=== PATIENT | male | born 1975 | race Caucasian/White ===

== ENCOUNTER 2022-08-17 08:16 | Inpatient (IN) ==
--- NOTE | 2022-08-17 08:41 | Emergency Department Note ---
HPI General Chief complaint: Recheck/Abnormal Lab/Rx Stated complaint: kidney pain Time Seen by Provider: 08/17/22 08:41 Source: patient Mode of arrival: ambulatory Limitations: no limitations History of Present Illness HPI Narrative: Narrative: Patient is a 47-year-old male with a history of hypertension, alcohol use disorder, and ROSANNE who presents to the emergency department due to feeling off. Patient was seen on Wednesday, and then at that time there was concern for urosepsis. Patient left AMA. Yesterday patient was called because he had positive blood cultures. He states that he continues to have headache, lightheadedness, palpitations that have worsened, abdominal pain on the right, right flank pain, pain with urination, increased frequency of urination, and malaise. He states that he wanted to try to do things on his own, but states that he has not really improved, so decided to come back to the emergency department. He states at this time he is willing to do what we feel like he needs to do. Related Data Home Medications Medication Instructions Recorded Confirmed No Known Home Meds 08/17/22 08/17/22 Allergies Allergy/AdvReac Type Severity Reaction Status Date / Time No Known Allergies Allergy Unknown Unknown Verified 08/15/22 12:26 Review of Systems ROS ROS Narrative: Narrative: Constitutional: Reports fever and weakness Eyes: Denies eye pain or vision change ENT ED: Denies throat pain or rhinorrhea Cardiovascular: Denies chest pain, dyspnea on exertion, orthopnea or edema Respiratory: Denies shortness of breath or cough Gastrointestinal: Reports nausea; Denies abdominal pain, vomiting, diarrhea, constipation, hematochezia or melena Genitourinary: Reports dysuria and frequency Musculoskeletal: Denies back pain or myalgia Integumentary: Denies rash or lesions Neurological: Denies headache, weakness, numbness, confusion, abnormal gait or dizziness PFS Narrative Patient History Narrative: Narrative: Medical/Surgical/Family History All Active Problems ROSANNE (acute kidney injury) (Acute) Acute UTI (urinary tract infection) (Acute) Elevated procalcitonin (Acute) Left against medical advice (Acute) Pyelonephritis (Acute) ROSANNE (acute kidney injury) (Acute) Spondylosis without myelopathy or radiculopathy, lumbar region (Acute) Radiculopathy, lumbosacral region (Acute) Tinea unguium (Acute) Lumbar stenosis (Acute) Lumbar disc herniation (Acute) Acquired foot drop (Acute) Acute pain of right thigh (Acute) Frozen shoulder syndrome (Acute) No pertinent past surgical history (Chronic) Shoulder fracture, left (Chronic ~10/23/18) Foot fracture, right (Chronic) Alcohol use disorder (Chronic) HTN (hypertension) (Chronic) Gout (Chronic) Depression (Chronic) Daytime sleepiness (Chronic) Cigarette smoker (Chronic) Medical History (Updated 08/18/22 @ 12:28 by Steve Hernandez MD) Alcohol use disorder Cigarette smoker Daytime sleepiness Depression Foot fracture, right Gout HTN (hypertension) Lumbar stenosis Radiculopathy, lumbosacral region Shoulder fracture, left (~10/23/18) Surgical History No pertinent past surgical history Family History Mother Arthritis Family/Other Arthritis Social History Smoking Status: Current every day smoker Alcohol Intake Frequency: a few times a month Substance Use: marijuana Exam Narrative Narrative: Narrative: General Limitations: no limitations General appearance: Present alert and in no apparent distress; Absent anxious, appears intoxicated or sleepy Head Head: Present atraumatic and normocephalic Eye Eye: Present EOMI; Absent scleral icterus or nystagmus ENT ENT: Present mucous membranes moist; Absent nasal congestion Neck Neck: Present full ROM and trachea midline Chest Chest: Present normal inspection and symmetric chest wall rise Respiratory Respiratory: Present normal lung sounds bilaterally; Absent respiratory distress or accessory muscle use Cardiovascular Cardiovascular: Present regular rate, normal rhythm and normal heart sounds Adbominal Abdominal: Present soft and normal bowel sounds; Absent distention, tenderness, guarding, rebound or rigidity Extremities Extremities: Present normal inspection and full ROM Back Back: Present normal inspection, full ROM, CVA tenderness (R) and CVA tenderness (L) Neurological Neurological: Present alert and oriented X3 Psychiatric Psychiatric: Present normal affect and normal mood Skin Skin: Present warm (WNL), dry and normal color Course Vital Signs Vital signs: Vital Signs Temperature 97.0 F 08/17/22 08:16 Pulse Rate 117 H 08/17/22 08:16 Respiratory Rate 19 08/17/22 08:16 Blood Pressure 127/87 08/17/22 08:16 Pulse Oximetry (%) 98 08/17/22 08:16 Oxygen Delivery Method Room Air 08/17/22 08:16 Temperature 97.4 F 08/18/22 08:00 Pulse Rate 98 H 08/18/22 08:00 Respiratory Rate 22 08/18/22 08:00 Blood Pressure 116/95 08/18/22 08:00 Pulse Oximetry (%) 100 08/18/22 08:00 Oxygen Delivery Method Room Air 08/18/22 08:00 MDM MDM Narrative Medical decision making narrative: Narrative: Patient is a 47-year-old male who presents to the emergency department due to pyelonephritis and continued symptoms. Patient has known pyelonephritis, and was uroseptic prior to leaving [place]. Patient's blood cultures were positive, so was told to come back in yesterday, but did not come until this morning. He did arrive with tachycardia, so there is continued concern for potential urosepsis. Patient's labs continue to show urinary tract infection, but patient does not meet sepsis criteria at this point. Blood cultures have been taken. He has received antibiotics. His labs do demonstrate an ROSANNE. I have spoken to Dr. Fu about admission given patient's positive blood cultures and ROSANNE. He has agreed to see and evaluate patient for admission. Lab Data 08/18/22 05:10 08/18/22 05:10 Labs: Lab Results 08/17/22 08/17/22 08/17/22 Range/Units 08:25 09:00 09:00 WBC 10.4 (4.5-11.0) K/mcL RBC 3.40 L (4.63-6.08) M/mcL Hgb 11.2 L (13.7-17.5) g/dL Hct 31.4 L (40.1-51.0) % POC Hct (41-55) MCV 92.4 (80.0-100.0) fL MCH 32.9 (26.0-34.0) pg MCHC 35.7 (31.0-36.0) g/dL RDW 13.3 (11.5-14.5) % Plt Count 122 L (140-440) K/mcL MPV 11.4 (8.8-12.5) fL Immature Gran % (Auto) 0.8 H (0.0-0.5) % Neut % (Auto) 87.4 H (38.0-78.0) % Lymph % (Auto) 2.3 L (15.5-49.0) % [place] % (Auto) 8.9 (1.0-12.0) % Eos % (Auto) 0.4 (0.0-7.0) % Baso % (Auto) 0.2 (0.0-2.0) % Lymph # (Auto) 0.24 L (1.50-4.80) K/mcL [place] # (Auto) 0.93 H (0.10-0.90) K/mcL Eos # (Auto) 0.04 (0.00-0.70) K/mcL Baso # (Auto) 0.02 (0.00-0.30) K/mcL Immature Gran # 0.08 H (0.00-0.05) K/mcl Absolute Neutrophils 9.12 H (1.80-8.00) K/mcL POC VBG pH (7.32-7.42) POC VBG pCO2 at Temp (41-51) POC VBG pO2 (25-40) POC VBG HCO3 (24-28) POC VBG Total CO2 (25-29) POC Venous O2 Sat (40-70) POC VBG Base Excess (-2-2) VBG Lactic Acid (0.5-2) POC Sodium (133-145) Sodium (133-145) mmol/L POC Potassium (3.3-5.1) Potassium (3.3-5.1) mmol/L POC Chloride (96-108) Chloride (96-108) mmol/L Carbon Dioxide (22-30) mmol/L POC Total CO2 (22-30) Anion Gap (8.0-16.0) POC Anion Gap (8.0-16.0) POC BUN (6-20) BUN (6-20) mg/dL Creatinine (0.7-1.2) mg/dL POC Creatinine (0.6-1.2) GFR Calculation Glucose (70-105) mg/dL POC Glucose (70-105) Calcium (8.6-10.4) mg/dL POC WB Ioniz Calcium (1.16-1.32) Phosphorus (2.5-4.5) mg/dL Albumin (3.2-5.2) gm/dL Procalcitonin 2.50 H (<0.10) ng/mL Urine Color Yellow Urine Appearance Hazy A (Clear) Urine pH 5.0 (5.0-9.0) Ur Specific [place] 1.010 (1.000-1.035) Urine Protein 100 A (Negative) mg/dL Urine Glucose (UA) Negative (Negative) mg/dL Urine Ketones Negative (Negative) mg/dL Urine Occult Blood 0.20 (Negative) mg/dL Urine Nitrate Negative (Negative) Urine Bilirubin Negative (Negative) mg/dL Urine Urobilinogen Negative mg/dL Ur Leukocyte Esterase 500 A (Negative) /uL Urine RBC 24 H (0-3) /hpf Urine WBC 148 H (0-4) /hpf Ur Squamous Epith Cells < 1 (0-4) /hpf Ur Transition Epith Cell 1 (0-2) /hpf Urine Bacteria None (0) /hpf Hyaline Casts 1 (0-2) /lph Urine Mucus Few A (None) /hpf Ur Culture Indicated? yes 08/17/22 08/17/22 08/17/22 Range/Units 09:04 11:27 13:05 WBC (4.5-11.0) K/mcL RBC (4.63-6.08) M/mcL Hgb (13.7-17.5) g/dL Hct (40.1-51.0) % POC Hct 34.0 L (41-55) MCV (80.0-100.0) fL MCH (26.0-34.0) pg MCHC (31.0-36.0) g/dL RDW (11.5-14.5) % Plt Count (140-440) K/mcL MPV (8.8-12.5) fL Immature Gran % (Auto) (0.0-0.5) % Neut % (Auto) (38.0-78.0) % Lymph % (Auto) (15.5-49.0) % [place] % (Auto) (1.0-12.0) % Eos % (Auto) (0.0-7.0) % Baso % (Auto) (0.0-2.0) % Lymph # (Auto) (1.50-4.80) K/mcL [place] # (Auto) (0.10-0.90) K/mcL Eos # (Auto) (0.00-0.70) K/mcL Baso # (Auto) (0.00-0.30) K/mcL Immature Gran # (0.00-0.05) K/mcl Absolute Neutrophils (1.80-8.00) K/mcL POC VBG pH (7.32-7.42) POC VBG pCO2 at Temp (41-51) POC VBG pO2 (25-40) POC VBG HCO3 (24-28) POC VBG Total CO2 (25-29) POC Venous O2 Sat (40-70) POC VBG Base Excess (-2-2) VBG Lactic Acid (0.5-2) POC Sodium 127 L (133-145) Sodium 129 L (133-145) mmol/L POC Potassium 3.5 (3.3-5.1) Potassium 3.4 (3.3-5.1) mmol/L POC Chloride 95 L (96-108) Chloride 95 L (96-108) mmol/L Carbon Dioxide 22 (22-30) mmol/L POC Total CO2 22.0 (22-30) Anion Gap 12.0 (8.0-16.0) POC Anion Gap 14.0 (8.0-16.0) POC BUN 51 H (6-20) BUN 56 H (6-20) mg/dL Creatinine 2.3 H (0.7-1.2) mg/dL POC Creatinine 2.9 H 2.6 H (0.6-1.2) GFR Calculation 33 Glucose 100 (70-105) mg/dL POC Glucose 105 (70-105) Calcium 8.3 L (8.6-10.4) mg/dL POC WB Ioniz Calcium 1.15 L (1.16-1.32) Phosphorus 3.1 (2.5-4.5) mg/dL Albumin 2.5 L (3.2-5.2) gm/dL Procalcitonin (<0.10) ng/mL Urine Color Urine Appearance (Clear) Urine pH (5.0-9.0) Ur Specific [place] (1.000-1.035) Urine Protein (Negative) mg/dL Urine Glucose (UA) (Negative) mg/dL Urine Ketones (Negative) mg/dL Urine Occult Blood (Negative) mg/dL Urine Nitrate (Negative) Urine Bilirubin (Negative) mg/dL Urine Urobilinogen mg/dL Ur Leukocyte Esterase (Negative) /uL Urine RBC (0-3) /hpf Urine WBC (0-4) /hpf Ur Squamous Epith Cells (0-4) /hpf Ur Transition Epith Cell (0-2) /hpf Urine Bacteria (0) /hpf Hyaline Casts (0-2) /lph Urine Mucus (None) /hpf Ur Culture Indicated? 08/17/22 Range/Units 13:10 WBC (4.5-11.0) K/mcL RBC (4.63-6.08) M/mcL Hgb (13.7-17.5) g/dL Hct (40.1-51.0) % POC Hct (41-55) MCV (80.0-100.0) fL MCH (26.0-34.0) pg MCHC (31.0-36.0) g/dL RDW (11.5-14.5) % Plt Count (140-440) K/mcL MPV (8.8-12.5) fL Immature Gran % (Auto) (0.0-0.5) % Neut % (Auto) (38.0-78.0) % Lymph % (Auto) (15.5-49.0) % [place] % (Auto) (1.0-12.0) % Eos % (Auto) (0.0-7.0) % Baso % (Auto) (0.0-2.0) % Lymph # (Auto) (1.50-4.80) K/mcL [place] # (Auto) (0.10-0.90) K/mcL Eos # (Auto) (0.00-0.70) K/mcL Baso # (Auto) (0.00-0.30) K/mcL Immature Gran # (0.00-0.05) K/mcl Absolute Neutrophils (1.80-8.00) K/mcL POC VBG pH 7.34 (7.32-7.42) POC VBG pCO2 at Temp 45.2 (41-51) POC VBG pO2 16 L (25-40) POC VBG HCO3 24.5 (24-28) POC VBG Total CO2 26.0 (25-29) POC Venous O2 Sat 20.0 L (40-70) POC VBG Base Excess -1.0 (-2-2) VBG Lactic Acid < 0.3 L (0.5-2) POC Sodium (133-145) Sodium (133-145) mmol/L POC Potassium (3.3-5.1) Potassium (3.3-5.1) mmol/L POC Chloride (96-108) Chloride (96-108) mmol/L Carbon Dioxide (22-30) mmol/L POC Total CO2 (22-30) Anion Gap (8.0-16.0) POC Anion Gap (8.0-16.0) POC BUN (6-20) BUN (6-20) mg/dL Creatinine (0.7-1.2) mg/dL POC Creatinine (0.6-1.2) GFR Calculation Glucose (70-105) mg/dL POC Glucose (70-105) Calcium (8.6-10.4) mg/dL POC WB Ioniz Calcium (1.16-1.32) Phosphorus (2.5-4.5) mg/dL Albumin (3.2-5.2) gm/dL Procalcitonin (<0.10) ng/mL Urine Color Urine Appearance (Clear) Urine pH (5.0-9.0) Ur Specific [place] (1.000-1.035) Urine Protein (Negative) mg/dL Urine Glucose (UA) (Negative) mg/dL Urine Ketones (Negative) mg/dL Urine Occult Blood (Negative) mg/dL Urine Nitrate (Negative) Urine Bilirubin (Negative) mg/dL Urine Urobilinogen mg/dL Ur Leukocyte Esterase (Negative) /uL Urine RBC (0-3) /hpf Urine WBC (0-4) /hpf Ur Squamous Epith Cells (0-4) /hpf Ur Transition Epith Cell (0-2) /hpf Urine Bacteria (0) /hpf Hyaline Casts (0-2) /lph Urine Mucus (None) /hpf Ur Culture Indicated? EKG Data EKG #1: EKG attestation: Yes I reviewed and interpreted this EKG. EKG results narrative: Sinus tachycardia with a rate Discharge Plan Patient/Caregiver Discharge Instructions Pt seen by REFUGE MANAGER/PA only: No Clinical Impression: Pyelonephritis, ROSANNE (acute kidney injury) Activity: increase activity as tolerated Patient Disposition: Xfer As Inpt ([facility]) Discharge Date/Time: 08/17/22 14:07
[2022-08-17] MEDS ORDERED: PIPERACILLIN SODIUM/TAZOBACTAM 3.375 GM in DEXTROSE 5% IN WATER 50 ML IV ONE (08:43)
[2022-08-17] MEDS ORDERED: 0.9 % SODIUM CHLORIDE 1,000 ML IV ONE (08:44)
[2022-08-17 09:07] LABS: POC Calcium, Ionized 1.15 (1.16-1.32); POC Creatinine 2.9 (0.6-1.2); POC Potassium 3.5 (3.3-5.1)
[2022-08-17 09:42] LABS: Appearance,Urine HAZY (Clear); Bilirubin,Urine Negative (Negative); Color,Urine YELLOW; Culture Indicated,Urine yes; Glucose,Urine (UA) Negative (Negative); Ketones,Urine Negative (Negative); Leukocyte Esterase,Urine 500 /uL (Negative); Mucus,Urine FEW /hpf; Nitrate,Urine Negative (Negative); Protein,Urine 100 mg/dL (Negative); Urine Hyaline Cast 1 /lph (0-2); Urine RBC 24 /hpf (0-3); Urine Squamous Epithelial Cell < 1 /hpf (0-4); Urine Transitional Epi Cells 1 /hpf (0-2); Urine WBC 148 /hpf (0-4); Urobilinogen,Urine Negative
[2022-08-17 09:56] LABS: Basophils # (Auto) 0.02 K/mcL (0.00-0.30); Basophils % (Auto) 0.2 % (0.0-2.0); Eosinophils # (Auto) 0.04 K/mcL (0.00-0.70); Eosinophils % (Auto) 0.4 % (0.0-7.0); Hematocrit 31.4 % (40.1-51.0); Hemoglobin 11.2 g/dL (13.7-17.5); Lymphocytes # (Auto) 0.24 K/mcL (1.50-4.80); Lymphocytes % (Auto) 2.3 % (15.5-49.0); Mean Cell Volume 92.4 fL (80.0-100.0); Mean Corpuscular HGB Conc 35.7 g/dL (31.0-36.0); Mean Platelet Volume 11.4 fL (8.8-12.5); Monocytes # (Auto) 0.93 K/mcL (0.10-0.90); Monocytes % (Auto) 8.9 % (1.0-12.0); Neutrophils % (Auto) 87.4 % (38.0-78.0); Platelet Count 122 K/mcL (140-440); Red Cell Distribution Width 13.3 % (11.5-14.5); WBC 10.4 K/mcL (4.5-11.0)
[2022-08-17] MEDS ORDERED: LACTATED RINGERS 1,000 ML IV ONE (10:22)
--- NOTE | 2022-08-17 12:44 | Internal Med History&Physical ---
HPI History of Present Illness Patient information: Note initiated : 08/17/22 at 12:37 pm Service Date, if different from initiated Date: [] Patient: Artemio Quintana a 47 y/o M admitted on for kidney pain. Chief Complaint: [] History of present illness: Mr. Quintana is a 47 year old M Presents to the ED with Remaining: for bacteremia. Patient was recently seen the other day for flank pain found to have a pyelonephritis and started on antibiotics but patient left AMA. patient complains of headache fever chills lightheadedness nausea vomiting, right flank pain. Blood cultures are gram- negative bacillus. Work-up in the ED with mild tachycardia. Leukocytosis improving but sodium is down a bit. Creatinine is improved but still quite elevated 2.6. BUN 51. Procalcitonin elevated CT of the abdomen pelvis was with findings distant pyelonephritis bilaterally. Patient has symptoms worse on the right. Review of Systems: Pertinent positives as above. Denies chest pain/cough/dyspnea/diarrhea. Remaining 10 point review of system reviewed negative PHYSICAL EXAM General: Alert, Awake, No acute Distress Eyes/N/T: EOMI, no scleral icterus, PERRL, dry MM Head/Neck: neck supple, full ROM, normocephalic atraumatic CV: RRR, No murmurs, normal s1/s2 Pulm: Clear b/l, no wheezing/rhonchi/rales, no respiratory distress Abd: soft, nontender, but right flank tender with positive domenica's punch, +BS x4 Ext: no clubbing/cyanosis/edema, nontender Neuro: Alert, CN 2-12 grossly intact, no focal deficits, moves all extremities, , sensations intact b/l upper/lower Psychiatric: Skin: warm/dry, normal color PFSH PFSH All Active Problems ROSANNE (acute kidney injury) (Acute) Acute UTI (urinary tract infection) (Acute) Elevated procalcitonin (Acute) Left against medical advice (Acute) Spondylosis without myelopathy or radiculopathy, lumbar region (Acute) Radiculopathy, lumbosacral region (Acute) Tinea unguium (Acute) Lumbar stenosis (Acute) Lumbar disc herniation (Acute) Acquired foot drop (Acute) Acute pain of right thigh (Acute) Frozen shoulder syndrome (Acute) No pertinent past surgical history (Chronic) Shoulder fracture, left (Chronic ~10/23/18) Foot fracture, right (Chronic) Alcohol use disorder (Chronic) HTN (hypertension) (Chronic) Gout (Chronic) Depression (Chronic) Daytime sleepiness (Chronic) Cigarette smoker (Chronic) Medical History Alcohol use disorder Cigarette smoker Daytime sleepiness Depression Foot fracture, right Gout HTN (hypertension) Lumbar stenosis Radiculopathy, lumbosacral region Shoulder fracture, left (~10/23/18) Surgical History No pertinent past surgical history Family History Mother Arthritis Family/Other Arthritis Social History marital status: education level: college smoking status: Current every day smoker tobacco type: cigarettes per day: 1 alcohol intake frequency: a few times a month substance use type: marijuana MEDS/ALLERGIES Home Medications and Allergies Home Medications Medication Instructions Recorded Confirmed Type diclofenac sodium 1 % topical gel 2 g topical .COMPLEX #100 grams 05/20/2007/02 Rx (Voltaren) terbinafine HCl 250 mg tablet 250 mg PO QDAY #30 tabs 06/25/20 07/02/20 Rx gabapentin 600 mg tablet See Rx Instructions .Route 08/26/20 Rx .COMPLEX #90 tabs meloxicam 15 mg tablet See Rx Instructions .Route 09/03/20 Rx .COMPLEX #30 tabs methocarbamol 750 mg tablet See Rx Instructions .Route 09/03/20 Rx .COMPLEX #90 tabs cefuroxime axetil 500 mg tablet 500 mg PO BID 10 days #20 tabs 08/15/22 Rx ondansetron 4 mg disintegrating 4 mg PO Q8H PRN nausea and 08/15/22 Rx tablet vomiting #20 tabs tramadol 50 mg tablet 50 mg PO Q6H PRN pain #20 tabs 08/15/22 Rx Allergies Allergy/AdvReac Type Severity Reaction Status Date / Time No Known Allergies Allergy Unknown Unknown Verified 08/15/22 12:26 EXAM Constitutional Vitals: Temp Pulse Resp BP Pulse Ox O2 Del Method 97.0 F 97 H 19 126/91 99 Room Air 08/17/22 08:16 08/17/22 12:32 08/17/22 08:16 08/17/22 12:31 08/17/22 12:32 08/17/22 08:16 DATA Data Completed and Pending Labs: Labs from last 24 hours 08/17/22 08/17/22 08/17/22 11:27 09:04 09:00 WBC RBC Hgb Hct POC Hct 34.0 L MCV MCH MCHC RDW Plt Count MPV Immature Gran % (Auto) Neut % (Auto) Lymph % (Auto) [place] % (Auto) Eos % (Auto) Baso % (Auto) Lymph # (Auto) [place] # (Auto) Eos # (Auto) Baso # (Auto) Immature Gran # Absolute Neutrophils POC Sodium 127 L POC Potassium 3.5 POC Chloride 95 L POC Total CO2 22.0 POC Anion Gap 14.0 POC BUN 51 H POC Creatinine 2.6 H 2.9 H POC Glucose 105 POC WB Ioniz Calcium 1.15 L Procalcitonin 2.50 H Urine Color Urine Appearance Urine pH Ur Specific [place] Urine Protein Urine Glucose (UA) Urine Ketones Urine Occult Blood Urine Nitrate Urine Bilirubin Urine Urobilinogen Ur Leukocyte Esterase Urine RBC Urine WBC Ur Squamous Epith Cells Ur Transition Epith Cell Urine Bacteria Hyaline Casts Urine Mucus Ur Culture Indicated? 08/17/22 08/17/22 09:00 08:25 WBC 10.4 RBC 3.40 L Hgb 11.2 L Hct 31.4 L POC Hct MCV 92.4 MCH 32.9 MCHC 35.7 RDW 13.3 Plt Count 122 L MPV 11.4 Immature Gran % (Auto) 0.8 H Neut % (Auto) 87.4 H Lymph % (Auto) 2.3 L [place] % (Auto) 8.9 Eos % (Auto) 0.4 Baso % (Auto) 0.2 Lymph # (Auto) 0.24 L [place] # (Auto) 0.93 H Eos # (Auto) 0.04 Baso # (Auto) 0.02 Immature Gran # 0.08 H Absolute Neutrophils 9.12 H POC Sodium POC Potassium POC Chloride POC Total CO2 POC Anion Gap POC BUN POC Creatinine POC Glucose POC WB Ioniz Calcium Procalcitonin Urine Color Yellow Urine Appearance Hazy A Urine pH 5.0 Ur Specific [place] 1.010 Urine Protein 100 A Urine Glucose (UA) Negative Urine Ketones Negative Urine Occult Blood 0.20 Urine Nitrate Negative Urine Bilirubin Negative Urine Urobilinogen Negative Ur Leukocyte Esterase 500 A Urine RBC 24 H Urine WBC 148 H Ur Squamous Epith Cells < 1 Ur Transition Epith Cell 1 Urine Bacteria None Hyaline Casts 1 Urine Mucus Few A Ur Culture Indicated? yes A/P Narrative A/P Narrative: A: *Pyelonephritis(GNB) b/l: -no obstruction on imaging *Bacteremia(GNB): 2/2 above *Sepsis: *ROSANNE: 2/2 above *Volume depletion: *Hyponatremia: *Alcohol use disorder: states 2-4 drinks per day and does Get withdrawal symptoms if he does not get alcohol daily *Tobacco abuse: *Chronic pain and neuropathy: P: -IV cefepime, pending UC/BC -IVF -Monitor renal function/UOP -Monitor trend electrolytes and replace as needed -Follow-up sodium after IV fluid hydration -beer with dinner -ciwa, vitamins/mineral, prn dawit -check lactic acid -f/u pct, chem, cbc -Home medication reconciliation -ppx: Lovenox Time Spent With Patient Time: Total time spent is greater than 50% in coordination of care (as documented) at patient's floor/unit and/or counseling patient: Initial: Total time with patient: 75 - 90 minutes
[2022-08-17 14:06] LABS: Albumin 2.5 gm/dL (3.2-5.2); Blood Urea Nitrogen 56 mg/dL (6-20); Calcium 8.3 mg/dL (8.6-10.4); Carbon Dioxide 22 mmol/L (22-30); Chloride 95 mmol/L (96-108); Glomerular Filtration Rate 33; Glucose 100 mg/dL (70-105); Phosphorous 3.1 mg/dL (2.5-4.5)
[2022-08-17] MEDS ORDERED: POTASSIUM CHLORIDE 20 MEQ TABLET PO PRN (14:10)
[2022-08-17] MEDS ORDERED: PROMETHAZINE 25 MG/ML VIAL IV PRN (14:10)
[2022-08-17] MEDS ORDERED: SENNOSIDES 1 TABLET PO PRN (14:10)
[2022-08-17] MEDS ORDERED: CEFEPIME 2 GM VIAL IV SCH (14:10)
[2022-08-17] MEDS ORDERED: POTASSIUM CHLORIDE 40 MEQ in DEXTROSE 5% IN WATER 500 ML IV PRN (14:10)
[2022-08-17] MEDS ORDERED: IPRATROPIUM/ALBUTEROL 3 ML AMPUL.NEB NEB PRN (14:10)
[2022-08-17] MEDS ORDERED: POLYETHYLENE GLYCOL 3350 17 GM PACKET PO PRN (14:10)
[2022-08-17] MEDS ORDERED: MAGNESIUM SULFATE 2 GM/50 ML BAG IV PRN (14:10)
[2022-08-17] MEDS ORDERED: ACETAMINOPHEN 325 MG TABLET PO PRN (14:10)
[2022-08-17] MEDS: morphine 4 MG/ML VIAL IV PRN (14:25)
[2022-08-17] MEDS: 0.9 % SODIUM CHLORIDE 10 ML SYRINGE IV SCH ×2 (14:25→20:22)
[2022-08-17] MEDS: 0.9 % SODIUM CHLORIDE 1,000 ML IV SCH (14:55)
[2022-08-17] MEDS: THIAMINE 100 MG TABLET PO SCH (14:55)
[2022-08-17] MEDS: CEFEPIME 2 GM VIAL IV SCH ×2 (14:57→23:49)
[2022-08-17] MEDS: LORazepam 2 MG/ML VIAL IV PRN (15:31)
[2022-08-17] MEDS: POTASSIUM CHLORIDE 20 MEQ TABLET PO PRN (17:30)
[2022-08-17] MEDS: chlordiazePOXIDE 25 MG CAPSULE PO PRN ×3 (19:11→19:20)
[2022-08-17] MEDS: DOCUSATE SODIUM 100 MG CAPSULE PO SCH (20:22)
[2022-08-18] MEDS: LORazepam 2 MG/ML VIAL IV PRN ×5 (00:04→20:27)
[2022-08-18] MEDS: 0.9 % SODIUM CHLORIDE 1,000 ML IV SCH (01:24)
[2022-08-18] MEDS: 0.9 % SODIUM CHLORIDE 10 ML SYRINGE IV SCH ×3 (04:01→20:39)
[2022-08-18] MEDS: chlordiazePOXIDE 25 MG CAPSULE PO PRN ×3 (05:11→17:00)
[2022-08-18 06:38] LABS: Basophils # (Auto) 0.02 K/mcL (0.00-0.30); Basophils % (Auto) 0.2 % (0.0-2.0); Eosinophils # (Auto) 0.05 K/mcL (0.00-0.70); Eosinophils % (Auto) 0.5 % (0.0-7.0); Hematocrit 27.6 % (40.1-51.0); Hemoglobin 9.6 g/dL (13.7-17.5); Lymphocytes # (Auto) 0.27 K/mcL (1.50-4.80); Lymphocytes % (Auto) 2.8 % (15.5-49.0); Mean Cell Volume 92.6 fL (80.0-100.0); Mean Corpuscular HGB Conc 34.8 g/dL (31.0-36.0); Mean Platelet Volume 11.6 fL (8.8-12.5); Monocytes # (Auto) 0.95 K/mcL (0.10-0.90); Neutrophils % (Auto) 85.7 % (38.0-78.0); Platelet Count 127 K/mcL (140-440); RBC 2.98 M/mcL (4.63-6.08); Red Cell Distribution Width 13.8 % (11.5-14.5); WBC 9.5 K/mcL (4.5-11.0)
[2022-08-18 07:06] LABS: ALT/SGPT 43 U/L (<40); AST/SGOT 53 U/L (<40); Albumin/Globulin Ratio 0.6 (1.0-2.3); Alkaline Phosphatase 327 U/L (39-117); Bilirubin,Direct 1.4 mg/dL (<0.3); Bilirubin,Total 1.8 mg/dL (0.1-1.0); Blood Urea Nitrogen 53 mg/dL (6-20); Calcium 8.3 mg/dL (8.6-10.4); Carbon Dioxide 19 mmol/L (22-30); Chloride 105 mmol/L (96-108); Globulin 3.1 gm/dL (2.2-3.7); Glomerular Filtration Rate 37; Glucose 98 mg/dL (70-105); Lactate Dehydrogenase 169 U/L (135-225); Phosphorous 2.2 mg/dL (2.5-4.5); Triglycerides 156 mg/dL (<150); Uric Acid 7.5 mg/dL (2.5-8.0)
[2022-08-18] MEDS: MULTIVIT,THER IRON,CA,FA & MIN 1 TABLET PO SCH (08:08)
[2022-08-18] MEDS: DOCUSATE SODIUM 100 MG CAPSULE PO SCH ×2 (08:08→20:39)
[2022-08-18] MEDS: THIAMINE 100 MG TABLET PO SCH (08:08)
[2022-08-18] MEDS: FOLIC ACID 1 MG TABLET PO SCH (08:08)
[2022-08-18] MEDS: ENOXAPARIN 40 MG/0.4 ML SYRINGE SQ SCH (08:08)
--- NOTE | 2022-08-18 08:19 | Internal Med Progress Note ---
SUBJECTIVE Subjective Patient information: Note initiated : 08/18/22 at 8:15 am Service Date, if different from initiated Date: [] Patient: Artemio Quintana a 47 y/o M admitted on 08/17/22 for kidney pain/ ROSANNE & bacterimia. Chief Complaint: [] Interval history: History of present illness: Mr. Quintana is a 47 year old M Presents to the ED with Remaining: for bacteremia. Patient was recently seen the other day for flank pain found to have a pyelonephritis and started on antibiotics but patient left AMA. patient complains of headache fever chills lightheadedness nausea vomiting, right flank pain. Blood cultures are gram- negative bacillus. Work-up in the ED with mild tachycardia. Leukocytosis improving but sodium is down a bit. Creatinine is improved but still quite elevated 2.6. BUN 51. Procalcitonin elevated CT of the abdomen pelvis was with findings distant pyelonephritis bilaterally. Patient has symptoms worse on the right. 08/18 Patient resting in bed. Tired poor sleep. Has continued flank pain but says it is slowly improving. Feels weak and fatigued. Anemia with a hemoglobin 9.6 today likely delusional, no gross bleeding. Sodium level improved. Metabolic acidosis noted. Creatinine minimally improved from yesterday afternoon. Continue IVF. Urine output has not been recorded. bilirubin elevated to have do not have a previous 1 to compare to. Minimal transaminitis. Procalcitonin gradually improving. patient refusing to drink beer offered to him with lunch and dinner even though he says he gets withdrawal when he does not drink alcohol. Review of Systems: Pertinent positives as above. Denies chest pain/cough/dyspnea/diarrhea. PHYSICAL EXAM General: Alert, Awake, No acute Distress Eyes/N/T: EOMI, no scleral icterus, Head/Neck: neck supple, full ROM, CV: RRR, No murmurs, Pulm: Clear b/l, no wheezing/rhonchi/rales, no respiratory distress Abd: soft, right flank tender, +BS x4 Ext: no clubbing/cyanosis/edema, nontender Neuro: Alert, no focal deficits, moves all extremities, , sensations intact b/l upper/lower Psychiatric: Skin: warm/dry, normal color Constitutional Vitals: Vital Signs Temp Pulse Resp BP Pulse Ox O2 Del Method 98.8 F 88 16 132/76 97 Room Air 08/17/22 22:00 08/18/22 03:17 08/18/22 03:17 08/18/22 03:17 08/18/22 03:17 08/18/22 03:17 Period Temp Pulse Resp BP Sys/Barney Pulse Ox O2 Del Method O2 Flow Rate Last 24 Hr 97 F-98.9 F 81-117 12-19 98-140/67-115 94-100 Room Air-Room Air Intake and Output 08/17/22 08/18/22 08/18/22 19:59 03:59 11:59 Intake Total 480 881 Balance 480 881 Weight 65.408 kg Intake & Output: Intake & Output 08/17/22 08/18/22 08/18/22 19:59 03:59 11:59 Intake Total 480 881 Balance 480 881 Weight 65.408 kg Intake: IV 881 Sodium Chloride 0.9% 1,000 ml @ 881 84 mls/hr IV .[id number] [facility] Rx#: [id number] Oral 480 Other: Meal Lunch Percent of Meal Consumed 100% Feeding Ability Independent Urine Appearance Clear Urine Color Yellow # Voids 1 OBJ DATA Labs 08/18/22 05:10 08/18/22 05:10 Labs: Abnormal Lab Results 08/18/22 08/18/22 08/18/22 05:10 05:10 05:10 RBC 2.98 L Hgb 9.6 L Hct 27.6 L POC Hct Plt Count 127 L Immature Gran % (Auto) 0.8 H Neut % (Auto) 85.7 H Lymph % (Auto) 2.8 L Lymph # (Auto) 0.27 L [place] # (Auto) 0.95 H Immature Gran # 0.08 H Absolute Neutrophils 8.13 H POC VBG pO2 POC Venous O2 Sat VBG Lactic Acid POC Sodium Sodium POC Chloride Chloride Carbon Dioxide 19 L POC BUN BUN 53 H Creatinine 2.1 H POC Creatinine Calcium 8.3 L POC WB Ioniz Calcium Phosphorus 2.2 L Total Bilirubin 1.8 H Direct Bilirubin 1.4 H GGT 276 H AST 53 H ALT 43 H Alkaline Phosphatase 327 H Total Protein 5.1 L Albumin 2.0 L Albumin/Globulin Ratio 0.6 L Triglycerides 156 H Procalcitonin 1.46 H Urine Appearance Urine Protein Ur Leukocyte Esterase Urine RBC Urine WBC Urine Mucus 0608/17/22 08/17/22 13:10 13:05 11:27 RBC Hgb Hct POC Hct Plt Count Immature Gran % (Auto) Neut % (Auto) Lymph % (Auto) Lymph # (Auto) [place] # (Auto) Immature Gran # Absolute Neutrophils POC VBG pO2 16 L POC Venous O2 Sat 20.0 L VBG Lactic Acid < 0.3 L POC Sodium Sodium 129 L POC Chloride Chloride 95 L Carbon Dioxide POC BUN BUN 56 H Creatinine 2.3 H POC Creatinine 2.6 H Calcium 8.3 L POC WB Ioniz Calcium Phosphorus Total Bilirubin Direct Bilirubin GGT AST ALT Alkaline Phosphatase Total Protein Albumin 2.5 L Albumin/Globulin Ratio Triglycerides Procalcitonin Urine Appearance Urine Protein Ur Leukocyte Esterase Urine RBC Urine WBC Urine Mucus 08/17/22 08/17/22 08/17/22 09:04 09:00 09:00 RBC 3.40 L Hgb 11.2 L Hct 31.4 L POC Hct 34.0 L Plt Count 122 L Immature Gran % (Auto) 0.8 H Neut % (Auto) 87.4 H Lymph % (Auto) 2.3 L Lymph # (Auto) 0.24 L [place] # (Auto) 0.93 H Immature Gran # 0.08 H Absolute Neutrophils 9.12 H POC VBG pO2 POC Venous O2 Sat VBG Lactic Acid POC Sodium 127 L Sodium POC Chloride 95 L Chloride Carbon Dioxide POC BUN 51 H BUN Creatinine POC Creatinine 2.9 H Calcium POC WB Ioniz Calcium 1.15 L Phosphorus Total Bilirubin Direct Bilirubin GGT AST ALT Alkaline Phosphatase Total Protein Albumin Albumin/Globulin Ratio Triglycerides Procalcitonin 2.50 H Urine Appearance Urine Protein Ur Leukocyte Esterase Urine RBC Urine WBC Urine Mucus 08/17/22 08:25 RBC Hgb Hct POC Hct Plt Count Immature Gran % (Auto) Neut % (Auto) Lymph % (Auto) Lymph # (Auto) [place] # (Auto) Immature Gran # Absolute Neutrophils POC VBG pO2 POC Venous O2 Sat VBG Lactic Acid POC Sodium Sodium POC Chloride Chloride Carbon Dioxide POC BUN BUN Creatinine POC Creatinine Calcium POC WB Ioniz Calcium Phosphorus Total Bilirubin Direct Bilirubin GGT AST ALT Alkaline Phosphatase Total Protein Albumin Albumin/Globulin Ratio Triglycerides Procalcitonin Urine Appearance Hazy A Urine Protein 100 A Ur Leukocyte Esterase 500 A Urine RBC 24 H Urine WBC 148 H Urine Mucus Few A Meds: Medications Acetaminophen (Acetaminophen 325 Mg Tablet) 650 mg PO Q6HP PRN; Protocol PRN Reason: Per Pain Protocol/Fever > 101 Hydrocodone Bitart/Acetaminophen (Hydrocodone/Apap 5/325mg Tablet) 1 tab PO Q4HP PRN PRN Reason: PAIN LEVEL 3-6 Albuterol/Ipratropium (Ipratropium/Albuterol 3 Ml Ampul.Neb) 3 ml NEB Q4HP PRN PRN Reason: Shortness Of Breath Cefepime HCl (Cefepime 2 Gm Vial) 2 gm IV Q12H [facility]; Protocol Last Admin: 08/17/22 23:49 Dose: 2 gm Chlordiazepoxide HCl (Chlordiazepoxide 25 Mg Capsule) 25 mg PO UD PRN; Protocol PRN Reason: Alcohol Withdrawal/Assess CIWA Last Admin: 08/18/22 05:12 Dose: 25 mg Docusate Sodium (Docusate Sodium 100 Mg Capsule) 100 mg PO BID [facility] Last Admin: 08/18/22 08:08 Dose: 100 mg Enoxaparin Sodium (Enoxaparin 40 Mg/0.4 Ml Syringe) 40 mg SQ DAILY [facility] Last Admin: 08/18/22 08:08 Dose: 40 mg Folic Acid (Folic Acid 1 Mg Tablet) 1 mg PO DAILY [facility] Last Admin: 08/18/22 08:08 Dose: 1 mg Potassium Chloride 40 meq/ (Dextrose) 520 mls @ 130 mls/hr IV UD PRN PRN Reason: Potassium < 3 Magnesium Sulfate (Magnesium Sulfate) 2 gm in 50 mls @ 50 mls/hr IV UD PRN PRN Reason: Magnesium </= 1.6 Sodium Chloride (Sodium Chloride 0.9%) 1,000 mls @ 84 mls/hr IV .[id number] [facility] Stop: 08/18/22 13:58 Last Admin: 08/18/22 01:24 Dose: 84 mls/hr Iron Carb/Multivit/[place]/Folic Acid (Multivit,Ther Iron,Ca,Fa & Min 1 Tablet) 1 tab PO DAILY [facility] Last Admin: 08/18/22 08:08 Dose: 1 tab Lorazepam (Lorazepam 2 Mg/Ml Vial) 0 mg IV UD PRN; Protocol PRN Reason: Alcohol Withdrawal/Assess CIWA Last Admin: 08/18/22 00:04 Dose: 1 mg Morphine Sulfate (Morphine 4 Mg/Ml Vial) 0 mg IV Q3HP PRN PRN Reason: Pain Last Admin: 08/17/22 14:25 Dose: 2 mg Ondansetron HCl (Ondansetron 4 Mg/2 Ml Vial) 4 mg IV Q4HP PRN PRN Reason: Nausea And Vomiting Polyethylene Glycol (Polyethylene Glycol 3350 17 Gm Packet) 17 gm PO DAILYP PRN PRN Reason: Constipation Potassium Chloride (Potassium Chloride 20 Meq Tablet) 40 meq PO UD PRN PRN Reason: Potssium is 3-3.5 Last Admin: 08/17/22 17:30 Dose: 40 meq Potassium Chloride (Potassium Chloride 20 Meq Tablet) 40 meq PO UD PRN PRN Reason: Potassium < 3 Promethazine HCl (Promethazine 25 Mg/Ml Vial) 12.5 mg IV Q6HP PRN PRN Reason: Nausea And Vomiting Senna (Sennosides 1 Tablet) 2 tab PO DAILYP PRN PRN Reason: Constipation Sodium Chloride (0.9 % Sodium Chloride 10 Ml Syringe) 10 ml IV Q8 [facility] Last Admin: 08/18/22 04:01 Dose: Not Given Thiamine HCl (Thiamine 100 Mg Tablet) 100 mg PO QDAY [facility] Last Admin: 08/18/22 08:08 Dose: 100 mg A/P Narrative A/P Narrative: A: *Pyelonephritis(E.coli) b/l: -no obstruction on imaging *Bacteremia(E.coli): 2/2 above *Sepsis: pct improving *ROSANNE, suspected ATN: 2/2 above -slowly improving *Met acidosis: *Volume depletion: *Anemia: suspect dilutional, monitor *Hyponatremia: improved *Alcohol use disorder: states 2-4 drinks per day and does Get withdrawal symptoms if he does not get alcohol daily *Transaminitis/Hyperbilirubin: *Tobacco abuse: *Chronic pain and neuropathy: P: -IV cefepime, pending UC/BC, duration abx 10-14 days -IVF -Monitor renal function/UOP -Monitor trend electrolytes and replace as needed -Follow-up sodium after IV fluid hydration -beer with dinner -ciwa, vitamins/mineral, prn dawit -f/u pct, chem, cbc -monitor lft's -ppx: Lovenox Time Spent With Patient Time: Total time spent is greater than 50% in coordination of care (as documented) at patient's floor/unit and/or counseling patient: Subsequent: Total time with patient: 50 - 65 Minutes QUALITY Stroke Symptom Onset Unknown: No VTE Deep Vein Thrombosis/Pulmonary Embolism Present on Admission: No
[2022-08-18] MEDS: CEFEPIME 2 GM VIAL IV SCH ×2 (08:42→20:39)
--- NOTE | 2022-08-18 11:16 | Discharge Summary ---
Discharge Provider Provider IMPORTANT FOLLOW-UP INFORMATION FOR PCP: Patient information: Note initiated : 08/18/22 at 11:15 am Service Date, if different from initiated Date: [] Patient: Artemio Quintana a 47 y/o M admitted on 08/17/22 for kidney pain/ ROSANNE & bacterimia. Chief Complaint: [] Date of admission: 08/17/22 14:07 Primary care physician: Unknown Unknown Consults: 08/17/22 Consult to Physician [CONS] Stat Comment: Consulting Provider: Kaushik Fu Reason For Exam: Physician to Consult COURSE Hospital Course Hospital course: History of present illness: Mr. Quintana is a 47 year old M Presents to the ED with Remaining: for bacteremia. Patient was recently seen the other day for flank pain found to have a pyelonephritis and started on antibiotics but patient left AMA. patient complains of headache fever chills lightheadedness nausea vomiting, right flank pain. Blood cultures are gram- negative bacillus. Work-up in the ED with mild tachycardia. Leukocytosis improving but sodium is down a bit. Creatinine is improved but still quite elevated 2.6. BUN 51. Procalcitonin elevated CT of the abdomen pelvis was with findings distant pyelonephritis bilaterally. Patient has symptoms worse on the right. 08/18 Patient resting in bed. Tired poor sleep. Has continued flank pain but says it is slowly improving. Feels weak and fatigued. Anemia with a hemoglobin 9.6 today likely delusional, no gross bleeding. Sodium level improved. Metabolic acidosis noted. Creatinine minimally improved from yesterday afternoon. Continue IVF. Urine output has not been recorded. bilirubin elevated to have do not have a previous 1 to compare to. Minimal transaminitis. Procalcitonin gradually improving. patient refusing to drink beer offered to him with lunch and dinner even though he says he gets withdrawal when he does not drink alcohol. Patient developing severe alcohol withdrawal with tachycardia tachypnea and febrile hypertension, confusion. delirium tremens CIWA scores been elevating up to 17, IV ativan given and will transfer to icu. examined at bedside, pt restless, tremors, confusion. f/u vitals closely. 08/19 Patient altered and also sedated from withdrawal treatment. Severe withdrawal and DTs. leukocytosis with bandemia now present. repeat ct r/o abscess. d5ns today,. mild transaminitis. >>> CT a/p showing evidence of acute cholecystitis, also as previously mentioned transaminitis developed. Gallbladder ultrasound confirmed. Added IV Flagyl to cefepime. Patient seen by Dr. Munoz who plans for surgery on Wednesday. 08/20 Patient CIWA this morning 15. Patient more coherent although still altered and not at baseline, but able to carry a conversation. Leukocytosis improving. Continue on Rocephin and Flagyl for acute acalculous cholecystitis also finishing treatment for pyelonephritis. Repeat blood cultures negative. Creatinine slightly improved from yesterday, but still elevated. Unknown baseline last creatinine from 2019 was normal. 08/21 Patient requiring less needed benzodiazepines. Mentation better today. Patient sodium mildly elevated 147 today we will start on hypotonic IV solution and follow-up sodium level. Patient undergo cholecystectomy. Patient does admit abdominal pain nausea Laura participate morning conversation with him. Does have some occasional nausea and headache. 08/22 Patient still feels groggy and out of it but seems to be be doing better. Vital signs with mild tachycardia. Did not require IV Ativan last night. Had cholecystectomy yesterday. Leukocytosis today. Manual differential pending. Did have diarrhea yesterday but no stools today. Fecal WBCs negative. Patient does complain of headache and occasional cough. Transaminitis again noted and monitor. A: *Alcohol w/d severe, Delirium Tremens: *Acute acalculous cholecystitis: s/p lap choley (08/21) *Pyelonephritis(E.coli) b/l: -no obstruction on imaging *Bacteremia(E.coli): 2/2 above *Sepsis, severe: *ROSANNE, suspected ATN(unknown baseline) suspect CKD III-?II: *Met acidosis: *Volume depletion: *Anemia: suspect dilutional, monitor *Hyponatremia now hypernatremia: *Alcohol use disorder: *Transaminitis/Hyperbilirubina: 2/2 above *Tobacco abuse: *Chronic pain and neuropathy: *Diarrhea: P: -abx 10-14 days Discharge diagnosis: Pyelonephritis E. coli and bacteremia E. coli sepsis ROSANNE ATN Secondary discharge diagnosis: Avoid acidosis volume depletion anemia hyponatremia alcohol use disorder transaminitis tobacco abuse chronic pain and neuropathy Time Spent with Patient Time attestation: Total time spent providing and/or coordinating discharge services: Time spent: Greater than 30 minutes EXAM Constitutional Vitals: Temp Pulse Resp BP Pulse Ox O2 Del Method 97.4 F 98 H 22 116/95 100 Room Air 08/18/22 08:00 08/18/22 08:00 08/18/22 08:00 08/18/22 08:00 08/18/22 08:00 08/18/22 08:00 Discharge Data Data Completed and Pending Labs on day of discharge: Labs from last 24 hours 08/18/22 08/18/22 08/18/22 05:10 05:10 05:10 WBC 9.5 RBC 2.98 L Hgb 9.6 L Hct 27.6 L MCV 92.6 MCH 32.2 MCHC 34.8 RDW 13.8 Plt Count 127 L MPV 11.6 Immature Gran % (Auto) 0.8 H Neut % (Auto) 85.7 H Lymph % (Auto) 2.8 L Will % (Auto) 10.0 Eos % (Auto) 0.5 Baso % (Auto) 0.2 Lymph # (Auto) 0.27 L [place] # (Auto) 0.95 H Eos # (Auto) 0.05 Baso # (Auto) 0.02 Immature Gran # 0.08 H Absolute Neutrophils 8.13 H POC VBG pH POC VBG pCO2 at Temp POC VBG pO2 POC VBG HCO3 POC VBG Total CO2 POC Venous O2 Sat POC VBG Base Excess VBG Lactic Acid Sodium 134 Potassium 4.4 Chloride 105 Carbon Dioxide 19 L Anion Gap 10.0 BUN 53 H Creatinine 2.1 H POC Creatinine GFR Calculation 37 Glucose 98 Uric Acid 7.5 Calcium 8.3 L Phosphorus 2.2 L Magnesium 2.1 Total Bilirubin 1.8 H Direct Bilirubin 1.4 H GGT 276 H AST 53 H ALT 43 H Alkaline Phosphatase 327 H Lactate Dehydrogenase 169 Total Protein 5.1 L Albumin 2.0 L Globulin 3.1 Albumin/Globulin Ratio 0.6 L Triglycerides 156 H Procalcitonin 1.46 H 08/17/22 08/17/22 08/17/22 13:10 13:05 11:27 WBC RBC Hgb Hct MCV MCH MCHC RDW Plt Count MPV Immature Gran % (Auto) Neut % (Auto) Lymph % (Auto) [place] % (Auto) Eos % (Auto) Baso % (Auto) Lymph # (Auto) Will # (Auto) Eos # (Auto) Baso # (Auto) Immature Gran # Absolute Neutrophils POC VBG pH 7.34 POC VBG pCO2 at Temp 45.2 POC VBG pO2 16 L POC VBG HCO3 24.5 POC VBG Total CO2 26.0 POC Venous O2 Sat 20.0 L POC VBG Base Excess -1.0 VBG Lactic Acid < 0.3 L Sodium 129 L Potassium 3.4 Chloride 95 L Carbon Dioxide 22 Anion Gap 12.0 BUN 56 H Creatinine 2.3 H POC Creatinine 2.6 H GFR Calculation 33 Glucose 100 Uric Acid Calcium 8.3 L Phosphorus 3.1 Magnesium Total Bilirubin Direct Bilirubin GGT AST ALT Alkaline Phosphatase Lactate Dehydrogenase Total Protein Albumin 2.5 L Globulin Albumin/Globulin Ratio Triglycerides Procalcitonin Preliminary micro results at discharge 08/17/22 09:07 Blood Culture - Preliminary Blood 08/17/22 09:00 Blood Culture - Preliminary Blood Discharge Plan Patient/Caregiver Discharge Instructions Activity: increase activity as tolerated Diet: Regular Diet Activity Restrictions/Additional Instructions: Follow-up with PCP in 3 to 7 days. Prescriptions: No Action No Known Home Meds Follow Up Plan Follow up with: Unknown,Unknown [Primary Care Provider] - Patient Disposition: Home, Self-Care Overall status at discharge: patient is progressing back to baseline QUALITY VTE Deep Vein Thrombosis/Pulmonary Embolism Present on Admission: No
--- NOTE | 2022-08-18 14:59 | Event Note ---
Event Note Event Note: Patient developing severe alcohol withdrawal with tachycardia tachypnea and febrile hypertension, confusion. delirium tremens CIWA scores been elevating up to 17, IV ativan given and will transfer to icu. examined at bedside, pt restless, tremors, confusion. f/u vitals closely. Critical care time spent 35 minutes.
[2022-08-18] MEDS ORDERED: HALOPERIDOL LACTATE 5 MG/ML VIAL IM PRN (15:03)
[2022-08-18] MEDS: cloNIDine HCL 0.1 MG TABLET PO PRN (21:03)
[2022-08-18] MEDS: morphine 4 MG/ML VIAL IV PRN (21:03)
[2022-08-19] MEDS: cloNIDine HCL 0.1 MG TABLET PO PRN (00:42)
[2022-08-19] MEDS: chlordiazePOXIDE 25 MG CAPSULE PO PRN (00:42)
[2022-08-19] MEDS: LORazepam 2 MG/ML VIAL IV PRN ×5 (00:42→21:21)
[2022-08-19] MEDS: morphine 4 MG/ML VIAL IV PRN (01:42)
[2022-08-19] MEDS: 0.9 % SODIUM CHLORIDE 10 ML SYRINGE IV SCH ×3 (05:33→21:28)
[2022-08-19 07:21] LABS: Basophils # (Auto) 0.04 K/mcL (0.00-0.30); Basophils % (Auto) 0.3 % (0.0-2.0); Eosinophils # (Auto) 0.11 K/mcL (0.00-0.70); Eosinophils % (Auto) 0.8 % (0.0-7.0); Hematocrit 26.9 % (40.1-51.0); Hemoglobin 9.2 g/dL (13.7-17.5); Lymphocytes # (Auto) 0.59 K/mcL (1.50-4.80); Lymphocytes % (Auto) 4.4 % (15.5-49.0); Mean Cell Volume 94.4 fL (80.0-100.0); Mean Corpuscular HGB Conc 34.2 g/dL (31.0-36.0); Mean Platelet Volume 11.6 fL (8.8-12.5); Monocytes # (Auto) 1.17 K/mcL (0.10-0.90); Monocytes % (Auto) 8.8 % (1.0-12.0); Neutrophils % (Auto) 84.3 % (38.0-78.0); Platelet Count 220 K/mcL (140-440); RBC 2.85 M/mcL (4.63-6.08); Red Cell Distribution Width 14.6 % (11.5-14.5); WBC 13.3 K/mcL (4.5-11.0)
[2022-08-19 07:52] LABS: ALT/SGPT 63 U/L (<40); AST/SGOT 47 U/L (<40); Albumin 2.2 gm/dL (3.2-5.2); Albumin/Globulin Ratio 0.7 (1.0-2.3); Alkaline Phosphatase 302 U/L (39-117); Bilirubin,Total 1.4 mg/dL (0.1-1.0); Blood Urea Nitrogen 46 mg/dL (6-20); Calcium 8.2 mg/dL (8.6-10.4); Carbon Dioxide 19 mmol/L (22-30); Chloride 108 mmol/L (96-108); Globulin 3.1 gm/dL (2.2-3.7); Glomerular Filtration Rate 41; Glucose 101 mg/dL (70-105); Lactate Dehydrogenase 145 U/L (135-225); Phosphorous 2.6 mg/dL (2.5-4.5); Triglycerides 135 mg/dL (<150); Uric Acid 7.1 mg/dL (2.5-8.0)
--- NOTE | 2022-08-19 08:12 | Internal Med Progress Note ---
SUBJECTIVE Subjective Patient information: Note initiated : 08/19/22 at 8:06 am Service Date, if different from initiated Date: [] Patient: Artemio Quintana a 47 y/o M admitted on 08/17/22 for kidney pain/ ROSANNE & bacterimia. Chief Complaint: [] Interval history: History of present illness: Mr. Quintana is a 47 year old M Presents to the ED with Remaining: for bacteremia. Patient was recently seen the other day for flank pain found to have a pyelonephritis and started on antibiotics but patient left AMA. patient complains of headache fever chills lightheadedness nausea vomiting, right flank pain. Blood cultures are gram- negative bacillus. Work-up in the ED with mild tachycardia. Leukocytosis improving but sodium is down a bit. Creatinine is improved but still quite elevated 2.6. BUN 51. Procalcitonin elevated CT of the abdomen pelvis was with findings distant pyelonephritis bilaterally. Patient has symptoms worse on the right. 08/18 Patient resting in bed. Tired poor sleep. Has continued flank pain but says it is slowly improving. Feels weak and fatigued. Anemia with a hemoglobin 9.6 today likely delusional, no gross bleeding. Sodium level improved. Metabolic acidosis noted. Creatinine minimally improved from yesterday afternoon. Continue IVF. Urine output has not been recorded. bilirubin elevated to have do not have a previous 1 to compare to. Minimal transaminitis. Procalcitonin gradually improving. patient refusing to drink beer offered to him with lunch and dinner even though he says he gets withdrawal when he does not drink alcohol. Patient developing severe alcohol withdrawal with tachycardia tachypnea and febrile hypertension, confusion. delirium tremens CIWA scores been elevating up to 17, IV ativan given and will transfer to icu. examined at bedside, pt restless, tremors, confusion. f/u vitals closely. 08/19 Patient altered and also sedated from withdrawal treatment. Severe withdrawal and DTs. leukocytosis with bandemia now present. repeat ct r/o abscess. d5ns today,. mild transaminitis. >>> CT a/p showing evidence of acute cholecystitis, also as previously mentioned transaminitis developed. Gallbladder ultrasound confirmed. Added IV Flagyl to cefepime. Patient seen by Dr. Munoz who plans for surgery on Wednesday. Review of Systems: Pertinent positives as above. Denies chest pain/cough/dyspnea/diarrhea. PHYSICAL EXAM General: sleeping, No acute Distress Eyes/N/T: , no scleral icterus, Head/Neck: neck supple, full ROM, CV: Tacky but regular, No murmurs, Pulm: Clear b/l, no wheezing/rhonchi/rales, no respiratory distress Abd: soft, right flank tender, +BS x4 Ext: no clubbing/cyanosis/edema, nontender Neuro: sedated, no focal deficits, spontaneously moves all extremities, Psychiatric: Skin: warm/dry, normal color Constitutional Vitals: Vital Signs Temp Pulse Resp BP Pulse Ox O2 Del Method 98.8 F 105 H 25 H 95/58 99 Room Air 08/19/22 07:01 08/19/22 07:37 08/19/22 07:37 08/19/22 07:01 08/19/22 07:37 08/19/22 07:37 Period Temp Pulse Resp BP Sys/Barney Pulse Ox O2 Del Method O2 Flow Rate Last 24 Hr 98.8 F-101.5 F 94-109 20-31 95-149/58-97 92-100 Room Air-Room Air Intake and Output 08/18/22 08/19/22 08/19/22 19:59 03:59 11:59 Intake Total 1658 160 Output Total 600 800 Balance 1058 -800 160 Weight 65.408 kg 63.616 kg Intake & Output: Intake & Output 08/18/22 08/19/22 08/19/22 19:59 03:59 11:59 Intake Total 1658 160 Output Total 600 800 Balance 1058 -800 160 Weight 65.408 kg 63.616 kg Intake: IV 1000 Sodium Chloride 0.9% 1,000 ml @ 1000 84 mls/hr IV .[id number] COUNT INCLUDES THE [facility] Rx#: [id number] Oral 658 160 Output: Void Amount 600 800 Other: Meal Lunch Percent of Meal Consumed 25% Urine Appearance Clear Urine Color Dark Felicita Urine Odor Strong Stool Size Moderate Large Stool Color Brown Brown Stool Consistency Loose Liquid Loose # Voids 2 # Bowel Movements 2 # of times incontinent of 1 Bowels OBJ DATA Labs 08/19/22 06:02 08/19/22 06:01 Labs: Abnormal Lab Results 08/19/22 08/19/22 08/18/22 06:02 06:01 05:10 WBC 13.3 H RBC 2.85 L Hgb 9.2 L Hct 26.9 L POC Hct RDW 14.6 H Plt Count Immature Gran % (Auto) 1.4 H Neut % (Auto) 84.3 H Lymph % (Auto) 4.4 L Lymph # (Auto) 0.59 L Sebastian # (Auto) 1.17 H Immature Gran # 0.18 H Absolute Neutrophils 11.19 H POC VBG pO2 POC Venous O2 Sat VBG Lactic Acid POC Sodium Sodium POC Chloride Chloride Carbon Dioxide 19 L POC BUN BUN 46 H Creatinine 1.9 H POC Creatinine Calcium 8.2 L POC WB Ioniz Calcium Phosphorus Total Bilirubin 1.4 H Direct Bilirubin 1.0 H GGT 262 H AST 47 H ALT 63 H Alkaline Phosphatase 302 H Total Protein 5.3 L Albumin 2.2 L Albumin/Globulin Ratio 0.7 L Triglycerides Procalcitonin 1.46 H Urine Appearance Urine Protein Ur Leukocyte Esterase Urine RBC Urine WBC Urine Mucus 08/18/22 08/18/22 08/17/22 05:10 05:10 13:10 WBC RBC 2.98 L Hgb 9.6 L Hct 27.6 L POC Hct RDW Plt Count 127 L Immature Gran % (Auto) 0.8 H Neut % (Auto) 85.7 H Lymph % (Auto) 2.8 L Lymph # (Auto) 0.27 L Sebastian # (Auto) 0.95 H Immature Gran # 0.08 H Absolute Neutrophils 8.13 H POC VBG pO2 16 L POC Venous O2 Sat 20.0 L VBG Lactic Acid < 0.3 L POC Sodium Sodium POC Chloride Chloride Carbon Dioxide 19 L POC BUN BUN 53 H Creatinine 2.1 H POC Creatinine Calcium 8.3 L POC WB Ioniz Calcium Phosphorus 2.2 L Total Bilirubin 1.8 H Direct Bilirubin 1.4 H GGT 276 H AST 53 H ALT 43 H Alkaline Phosphatase 327 H Total Protein 5.1 L Albumin 2.0 L Albumin/Globulin Ratio 0.6 L Triglycerides 156 H Procalcitonin Urine Appearance Urine Protein Ur Leukocyte Esterase Urine RBC Urine WBC Urine Mucus 08/17/22 08/17/22 08/17/22 13:05 11:27 09:04 WBC RBC Hgb Hct POC Hct 34.0 L RDW Plt Count Immature Gran % (Auto) Neut % (Auto) Lymph % (Auto) Lymph # (Auto) Sebastian # (Auto) Immature Gran # Absolute Neutrophils POC VBG pO2 POC Venous O2 Sat VBG Lactic Acid POC Sodium 127 L Sodium 129 L POC Chloride 95 L Chloride 95 L Carbon Dioxide POC BUN 51 H BUN 56 H Creatinine 2.3 H POC Creatinine 2.6 H 2.9 H Calcium 8.3 L POC WB Ioniz Calcium 1.15 L Phosphorus Total Bilirubin Direct Bilirubin GGT AST ALT Alkaline Phosphatase Total Protein Albumin 2.5 L Albumin/Globulin Ratio Triglycerides Procalcitonin Urine Appearance Urine Protein Ur Leukocyte Esterase Urine RBC Urine WBC Urine Mucus 08/17/22 08/17/22 08/17/22 09:00 09:00 08:25 WBC RBC 3.40 L Hgb 11.2 L Hct 31.4 L POC Hct RDW Plt Count 122 L Immature Gran % (Auto) 0.8 H Neut % (Auto) 87.4 H Lymph % (Auto) 2.3 L Lymph # (Auto) 0.24 L Sebastian # (Auto) 0.93 H Immature Gran # 0.08 H Absolute Neutrophils 9.12 H POC VBG pO2 POC Venous O2 Sat VBG Lactic Acid POC Sodium Sodium POC Chloride Chloride Carbon Dioxide POC BUN BUN Creatinine POC Creatinine Calcium POC WB Ioniz Calcium Phosphorus Total Bilirubin Direct Bilirubin GGT AST ALT Alkaline Phosphatase Total Protein Albumin Albumin/Globulin Ratio Triglycerides Procalcitonin 2.50 H Urine Appearance Hazy A Urine Protein 100 A Ur Leukocyte Esterase 500 A Urine RBC 24 H Urine WBC 148 H Urine Mucus Few A Meds: Medications Acetaminophen (Acetaminophen 325 Mg Tablet) 650 mg PO Q6HP PRN; Protocol PRN Reason: Per Pain Protocol/Fever > 101 Hydrocodone Bitart/Acetaminophen (Hydrocodone/Apap 5/325mg Tablet) 1 tab PO Q4HP PRN PRN Reason: PAIN LEVEL 3-6 Albuterol/Ipratropium (Ipratropium/Albuterol 3 Ml Ampul.Neb) 3 ml NEB Q4HP PRN PRN Reason: Shortness Of Breath Cefepime HCl (Cefepime 2 Gm Vial) 2 gm IV Q12H JERSON; Protocol Last Admin: 08/18/22 20:39 Dose: 2 gm Chlordiazepoxide HCl (Chlordiazepoxide 25 Mg Capsule) 50 mg PO UD PRN; Protocol PRN Reason: Alcohol Withdrawal/Assess CIWA Last Admin: 08/19/22 00:42 Dose: 50 mg Clonidine HCl (Clonidine Hcl 0.1 Mg Tablet) 0.1 mg PO Q4HP PRN PRN Reason: ALC Last Admin: 08/19/22 00:42 Dose: 0.1 mg Docusate Sodium (Docusate Sodium 100 Mg Capsule) 100 mg PO BID COUNT INCLUDES THE [facility] Last Admin: 08/18/22 20:39 Dose: Not Given Enoxaparin Sodium (Enoxaparin 40 Mg/0.4 Ml Syringe) 40 mg SQ DAILY COUNT INCLUDES THE [facility] Last Admin: 08/18/22 08:08 Dose: 40 mg Folic Acid (Folic Acid 1 Mg Tablet) 1 mg PO DAILY COUNT INCLUDES THE [facility] Last Admin: 08/18/22 08:08 Dose: 1 mg Haloperidol Lactate (Haloperidol Lactate 5 Mg/Ml Vial) 0.5 mg IM Q2HP PRN PRN Reason: Alcohol Withdrawal/Assess CIWA Potassium Chloride 40 meq/ (Dextrose) 520 mls @ 130 mls/hr IV UD PRN PRN Reason: Potassium < 3 Magnesium Sulfate (Magnesium Sulfate) 2 gm in 50 mls @ 50 mls/hr IV UD PRN PRN Reason: Magnesium </= 1.6 Iron Carb/Multivit/Wound Nurse/Folic Acid (Multivit,Ther Iron,Ca,Fa & Min 1 Tablet) 1 tab PO DAILY COUNT INCLUDES THE [facility] Last Admin: 08/18/22 08:08 Dose: 1 tab Lorazepam (Lorazepam 2 Mg/Ml Vial) 0 mg IV UD PRN; Protocol PRN Reason: Alcohol Withdrawal/Assess CIWA Last Admin: 08/19/22 07:49 Dose: 2 mg Morphine Sulfate (Morphine 4 Mg/Ml Vial) 0 mg IV Q3HP PRN PRN Reason: Pain Last Admin: 08/19/22 01:42 Dose: 2 mg Ondansetron HCl (Ondansetron 4 Mg/2 Ml Vial) 4 mg IV Q4HP PRN PRN Reason: Nausea And Vomiting Polyethylene Glycol (Polyethylene Glycol 3350 17 Gm Packet) 17 gm PO DAILYP PRN PRN Reason: Constipation Potassium Chloride (Potassium Chloride 20 Meq Tablet) 40 meq PO UD PRN PRN Reason: Potssium is 3-3.5 Last Admin: 08/17/22 17:30 Dose: 40 meq Potassium Chloride (Potassium Chloride 20 Meq Tablet) 40 meq PO UD PRN PRN Reason: Potassium < 3 Promethazine HCl (Promethazine 25 Mg/Ml Vial) 12.5 mg IV Q6HP PRN PRN Reason: Nausea And Vomiting Senna (Sennosides 1 Tablet) 2 tab PO DAILYP PRN PRN Reason: Constipation Sodium Chloride (0.9 % Sodium Chloride 10 Ml Syringe) 10 ml IV Q8 COUNT INCLUDES THE [facility] Last Admin: 08/19/22 05:33 Dose: 10 ml Thiamine HCl (Thiamine 100 Mg Tablet) 100 mg PO QDAY COUNT INCLUDES THE [facility] Last Admin: 08/18/22 08:08 Dose: 100 mg A/P Narrative A/P Narrative: A: *Alcohol w/d severe, Delirium Tremens: - *Acute acalculous cholecystitis: *Pyelonephritis(E.coli) b/l: -no obstruction on imaging *Bacteremia(E.coli): 2/2 above *Sepsis: pct improving *ROSANNE, suspected ATN: 2/2 above -slowly improving *Met acidosis: *Volume depletion: *Anemia: suspect dilutional, monitor *Hyponatremia: improved *Alcohol use disorder: states 2-?4 drinks per day and does Get withdrawal symptoms if he does not get alcohol daily *Transaminitis/Hyperbilirubina: *Tobacco abuse: *Chronic pain and neuropathy: P: -ciwa, vitamins/mineral, prn dawit -monitor vitals and rhythm closely -d5ns -man diff for increased wbc > bandemia, repeat ct r/o abscess -Dr. Munoz following, plan is for cholecystectomy on Wednesday -cefepime/flagyl, pending UC/BC, duration abx 10-14 days -Monitor renal function/UOP -Monitor trend electrolytes and replace as needed - -f/u pct, chem, cbc -monitor lft's -smoking cessation counseling >3 minutes -pt/ot -ppx: Lovenox Time Spent With Patient Time: Total time spent is greater than 50% in coordination of care (as documented) at patient's floor/unit and/or counseling patient: Critical Care Time: Yes Total Critical Care Time: 65 QUALITY Stroke Symptom Onset Unknown: No VTE Deep Vein Thrombosis/Pulmonary Embolism Present on Admission: No
[2022-08-19] MEDS ORDERED: DEXTROSE 5%-NS 1,000 ML IV SCH (08:15)
[2022-08-19] MEDS: THIAMINE 100 MG in 0.9 % SODIUM CHLORIDE 50 ML IV SCH (08:54)
[2022-08-19] MEDS: DOCUSATE SODIUM 100 MG CAPSULE PO SCH ×2 (08:54→20:32)
[2022-08-19] MEDS: CEFEPIME 2 GM VIAL IV SCH ×3 (09:04→21:27)
[2022-08-19] MEDS: ENOXAPARIN 40 MG/0.4 ML SYRINGE SQ SCH (09:05)
[2022-08-19 09:13] LABS: Anisocytosis 1+ (None Seen); Band Neutrophils % 17 % (0-10); Eosinophils % (Manual) 1 % (0-7); Hypochromasia 1+ (None Seen); Lymphocytes % 3 % (15-49); Monocytes % (Manual) 9 % (1-12); Myelocytes % 1 %; Platelet Estimate NORMAL (Normal); Poikilocytosis FEW (None Seen); Polychromasia 1+ (None Seen); RBC Fragments RARE (None Seen); RBC Morphology ABNORMAL (Normal); Segmented Neutrophils % 69 % (38-78)
[2022-08-19] MEDS: FOLIC ACID 1 MG TABLET PO SCH (10:10)
[2022-08-19] MEDS: MULTIVIT,THER IRON,CA,FA & MIN 1 TABLET PO SCH (10:10)
[2022-08-19] MEDS: DEXTROSE 5%-NS 1,000 ML IV SCH ×3 (10:15→22:52)
--- NOTE | 2022-08-19 12:20 | Cat Scan Report ---
CLINICAL INFORMATION: Pyelonephritis. Evaluate for abscess COMPARISON: Abdomen and pelvic CT 08/15/2022 TECHNIQUE: 0.625 mm helical slices were obtained from the mid heart through the subtrochanteric regions. Following reconstruction, 2.5 mm sagittal, coronal and axial reformatted images were processed and reviewed at bone and soft tissue windows.The exam was performed using radiation dose optimization techniques including, but not limited to, automated exposure control, adjustment of the mA and/or kV according to patient size and use of iterative reconstruction technique. FINDINGS: The lung bases show subsegmental atelectasis in the posterior inferior lower lobes-new from previous exam. No effusions. The visualized heart is grossly normal. Abdominal images show mild enlargement of the gallbladder with mild wall thickening and marked pericholecystic fluid. The findings are compatible with acute cholecystitis-new prior exam. The intrahepatic and common bile ducts are normal caliber CBD is 5 mm. The liver, both adrenal glands, spleen, pancreas and aorta are normal in size, configuration and attenuation without focal lesion. There is no free air, free fluid or adenopathy. Both kidneys are mildly enlarged: The right is 12.9 cm in length and the left is 11.8 cm in length. Renal attenuation slightly inhomogeneous with equivocal perinephric stranding. Findings are suggestive, but not diagnostic, of bilateral nephritis. No evidence of abscess. Pelvic images show normal noncontrasted urinary bladder, prostate and seminal vesicles. The stomach, small bowel, medial pericecal appendix and large bowel are grossly normal. Bone windows show no osseous abnormality. IMPRESSION: 1. Acute cholecystitis. 2. Equivocal enlargement of the kidneys with inhomogeneous attenuation. This is only suggestive, but not diagnostic of bilateral nephritis. No evidence of abscess. If urinalysis is normal, this finding is likely insignificant Interpreted and Authenticated by: Johnny Johansen 08/19/22
[2022-08-19] MEDS: metroNIDAZOLE 500 MG/100 ML BAG IV SCH ×2 (12:38→21:28)
--- NOTE | 2022-08-19 15:59 | Ultrasound Report ---
CLINICAL INFORMATION: eval cholecystitis, per surgeon COMPARISON: None. FINDINGS: The gallbladder wall is massively thickened-9 mm no stones are identified. There is however a large amount of sludge is present within the gallbladder. Moderate pericholecystic fluid noted. Common bile is normal at 4 mm. IMPRESSION: Severe acute acalculus cholecystitis Interpreted and Authenticated by: Johnny Johansen 08/19/22
--- NOTE | 2022-08-19 16:36 | General Surgery Consult Note ---
HPI Date of Consult Consult Date: 08/19/22 Requesting physician: Kaushik Fu Primary Care Provider: Unknown Unknown Consult Narrative Patient Information: Note initiated : 08/19/22 at 4:34 pm Service Date, if different from initiated Date: [] Patient: Artemio Quintana 47 y/o M admitted on 08/17/22 for kidney pain/ ROSANNE & bacterimia. Chief Complaint: [] Chief complaint: Abdominal and right flank pain with E. coli bacteremia; abnormal abdominal Reason for consult: Acute cholecystitis with biliary sludge cc:: CC: Kaushik Fu 47-year-old male who was admitted initially on 17 August 2022 with complaint of lethargy fever chills with leukocytosis and flank and right upper quadrant pain. Patient had been seen in the emergency room on and 16 August with similar complaints. Initially it was felt that he had UTI with E. coli bacteremia. He was advised to be admitted to the hospital but refused. He returned on 17 August with worsening symptoms and has been treated for pyelonephritis and bacteremia. He has a history of alcohol excess use and has developed alcohol withdrawal. He refused to take alcohol and has been placed on the CIWA protocol. He appears to be improving significantly at this time. He still has epigastric right upper quadrant and right flank tenderness. He has some elevation of his liver enzymes but his bilirubin is only 1.4. Because of increasing abdominal pain a CT was done which suggest that acute severe inflammation of the gallbladder. No stones were noted on CT so an ultrasound was ordered. The ultrasound shows severe inflammation with thickening of the gallbladder wall with a large volume of sludge and pericholecystic fluid. Patient is not fully oriented so he cannot be consented at this time. He will need to have cholecystectomy during this admission and I will make plans to perform it on Wednesday. Hopefully he will be more oriented and I can get adequate consent. Review of Systems ROS unobtainable: due to mental status Constitutional Constitutional: Present fever(s), lethargy and malaise PFSH PFSH All Active Problems Alcohol withdrawal syndrome, with delirium (Acute) History of alcohol abuse (Acute) Acute cholecystitis (Acute) Bacteremia due to Gram-negative bacteria (Acute) ROSANNE (acute kidney injury) (Acute) Acute UTI (urinary tract infection) (Acute) Elevated procalcitonin (Acute) Left against medical advice (Acute) Pyelonephritis (Acute) ROSANNE (acute kidney injury) (Acute) Spondylosis without myelopathy or radiculopathy, lumbar region (Acute) Radiculopathy, lumbosacral region (Acute) Tinea unguium (Acute) Lumbar stenosis (Acute) Lumbar disc herniation (Acute) Acquired foot drop (Acute) Acute pain of right thigh (Acute) Frozen shoulder syndrome (Acute) No pertinent past surgical history (Chronic) Shoulder fracture, left (Chronic ~10/23/18) Foot fracture, right (Chronic) Alcohol use disorder (Chronic) HTN (hypertension) (Chronic) Gout (Chronic) Depression (Chronic) Daytime sleepiness (Chronic) Cigarette smoker (Chronic) Medical History (Updated 08/19/22 @ 16:48 by Alia Munoz MD) Alcohol use disorder Cigarette smoker Daytime sleepiness Depression Foot fracture, right Gout HTN (hypertension) Lumbar stenosis Radiculopathy, lumbosacral region Shoulder fracture, left (~10/23/18) Surgical History No pertinent past surgical history Family History Mother Arthritis Family/Other Arthritis Social History marital status: education level: college smoking status: Current every day smoker tobacco type: cigarettes per day: 1 alcohol intake frequency: a few times a month substance use type: marijuana MEDS/ALLERGIES Home Medications and Allergies Home Medications Medication Instructions Recorded Confirmed Type No Known Home Meds 08/17/22 08/17/22 History Allergies Allergy/AdvReac Type Severity Reaction Status Date / Time No Known Allergies Allergy Unknown Unknown Verified 08/15/22 12:26 Physical Examination Vital Signs Vital signs: Temp Pulse Resp BP Pulse Ox O2 Del Method 98.6 F 87 26 H 126/81 98 Room Air 08/19/22 16:00 08/19/22 14:00 08/19/22 16:00 08/19/22 16:00 08/19/22 16:00 08/19/22 16:00 General physical appearance General physical exam: moderate distress, moderate pain, cachectic and chronically ill Eyes Eye exam: PERRL and normal ocular movement; negative icteric ENT ENT exam: negative no congestion Head Head exam IM: Present atraumatic, normal inspection and normocephalic Neck Neck exam: no masses, no bruits, trachea midline, no lymphadenopathy and no venous distension Cardiovascular Cardiovascular exam IM: Present normal rate and rhythm, RRR, +S1 and +S2; Absent JVD Respiratory Respiratory exam: normal expansion, normal respiratory effort and clear to auscultation Abdomen Abdomen: Present tender (Epigastric, right upper quadrant, right flank tenderness), guarding and rebound Integumentary Integumentary: Present no rash, no growths and no abnormal pigmentation Neurologic Neurologic: Present disoriented and confused Musculoskeletal Musculoskeletal: Present other (Gait and stance cannot be tested due to mental status changes) Psychiatric Psychiatric: Absent oriented to time, oriented to person, oriented to place, speech is normal or memory intact Results Labs 08/19/22 06:02 08/19/22 06:01 Labs: Abnormal lab results 08/19/22 08/19/22 08/19/22 Range/Units 06:01 06:01 06:02 WBC 13.3 H (4.5-11.0) K/mcL RBC 2.85 L (4.63-6.08) M/mcL Hgb 9.2 L (13.7-17.5) g/dL Hct 26.9 L (40.1-51.0) % RDW 14.6 H (11.5-14.5) % Immature Gran % (Auto) 1.4 H (0.0-0.5) % Neut % (Auto) 84.3 H (38.0-78.0) % Lymph % (Auto) 4.4 L (15.5-49.0) % Lymph # (Auto) 0.59 L (1.50-4.80) K/mcL Elliott # (Auto) 1.17 H (0.10-0.90) K/mcL Band Neutrophils % 17 H (0-10) % Lymphocytes % 3 L (15-49) % Immature Gran # 0.18 H (0.00-0.05) K/mcl Absolute Neutrophils 11.19 H (1.80-8.00) K/mcL RBC Morphology Abnormal A (Normal) Polychromasia 1+ A (None Seen) Hypochromasia 1+ A (None Seen) Poikilocytosis Few A (None Seen) Anisocytosis 1+ A (None Seen) RBC Fragments Rare A (None Seen) Carbon Dioxide 19 L (22-30) mmol/L BUN 46 H (6-20) mg/dL Creatinine 1.9 H (0.7-1.2) mg/dL Calcium 8.2 L (8.6-10.4) mg/dL Total Bilirubin 1.4 H (0.1-1.0) mg/dL Direct Bilirubin 1.0 H (<0.3) mg/dL GGT 262 H (8-61) U/L AST 47 H (<40) U/L ALT 63 H (<40) U/L Alkaline Phosphatase 302 H (39-117) U/L Total Protein 5.3 L (5.9-8.4) gm/dL Albumin 2.2 L (3.2-5.2) gm/dL Albumin/Globulin Ratio 0.7 L (1.0-2.3) Diabetes panel 08/19/22 Range/Units 06:01 Sodium 137 (133-145) mmol/L Potassium 3.9 (3.3-5.1) mmol/L Chloride 108 (96-108) mmol/L Carbon Dioxide 19 L (22-30) mmol/L BUN 46 H (6-20) mg/dL Creatinine 1.9 H (0.7-1.2) mg/dL Glucose 101 (70-105) mg/dL Calcium 8.2 L (8.6-10.4) mg/dL AST 47 H (<40) U/L ALT 63 H (<40) U/L Alkaline Phosphatase 302 H (39-117) U/L Total Protein 5.3 L (5.9-8.4) gm/dL Albumin 2.2 L (3.2-5.2) gm/dL Triglycerides 135 (<150) mg/dL Calcium panel 08/19/22 Range/Units 06:01 Calcium 8.2 L (8.6-10.4) mg/dL Phosphorus 2.6 (2.5-4.5) mg/dL Albumin 2.2 L (3.2-5.2) gm/dL Pituitary panel 08/19/22 Range/Units 06:01 Sodium 137 (133-145) mmol/L Potassium 3.9 (3.3-5.1) mmol/L Chloride 108 (96-108) mmol/L Carbon Dioxide 19 L (22-30) mmol/L BUN 46 H (6-20) mg/dL Creatinine 1.9 H (0.7-1.2) mg/dL Glucose 101 (70-105) mg/dL Calcium 8.2 L (8.6-10.4) mg/dL Adrenal panel 08/19/22 Range/Units 06:01 Sodium 137 (133-145) mmol/L Potassium 3.9 (3.3-5.1) mmol/L Chloride 108 (96-108) mmol/L Carbon Dioxide 19 L (22-30) mmol/L BUN 46 H (6-20) mg/dL Creatinine 1.9 H (0.7-1.2) mg/dL Glucose 101 (70-105) mg/dL Calcium 8.2 L (8.6-10.4) mg/dL Total Bilirubin 1.4 H (0.1-1.0) mg/dL AST 47 H (<40) U/L ALT 63 H (<40) U/L Alkaline Phosphatase 302 H (39-117) U/L Total Protein 5.3 L (5.9-8.4) gm/dL Albumin 2.2 L (3.2-5.2) gm/dL All other labs normal. A/P Assessment and plan (1) Bacteremia due to Gram-negative bacteria: Status: Acute (2) ROSANNE (acute kidney injury): Status: Acute (3) Acute UTI (urinary tract infection): Status: Acute (4) Acute cholecystitis: Status: Acute (5) History of alcohol abuse: Status: Acute (6) Alcohol withdrawal syndrome, with delirium: Status: Acute Plan Continue patient on present antibiotic therapy based on cultures Increase hydration to try to better correct acute kidney injury Patient will be scheduled for cholecystectomy on 21 August 2022 Time Spent With Patient Time: Total time spent is greater than 50% in coordination of care (as documented) at patient's floor/unit and/or counseling patient:
[2022-08-19] MEDS: NICOTINE 21 MG PATCH TOPICAL SCH (20:17)
[2022-08-20] MEDS: LORazepam 2 MG/ML VIAL IV PRN ×3 (01:12→20:36)
[2022-08-20] MEDS: ONDANSETRON 4 MG/2 ML VIAL IV PRN (01:12)
[2022-08-20] MEDS: HYDROcodone/APAP 5/325MG TABLET PO PRN ×2 (01:13→09:06)
[2022-08-20] MEDS: chlordiazePOXIDE 25 MG CAPSULE PO PRN ×3 (01:13→20:35)
[2022-08-20] MEDS: 0.9 % SODIUM CHLORIDE 10 ML SYRINGE IV SCH ×3 (05:39→21:56)
[2022-08-20] MEDS: CEFEPIME 2 GM VIAL IV SCH ×3 (05:39→21:55)
[2022-08-20] MEDS: metroNIDAZOLE 500 MG/100 ML BAG IV SCH ×3 (05:39→21:55)
[2022-08-20 06:35] LABS: Hematocrit 24.5 % (40.1-51.0); Hemoglobin 8.4 g/dL (13.7-17.5); Mean Cell Volume 94.6 fL (80.0-100.0); Mean Corpuscular HGB Conc 34.3 g/dL (31.0-36.0); Mean Platelet Volume 11.4 fL (8.8-12.5); Platelet Count 228 K/mcL (140-440); RBC 2.59 M/mcL (4.63-6.08); Red Cell Distribution Width 14.8 % (11.5-14.5); WBC 10.7 K/mcL (4.5-11.0)
[2022-08-20 07:19] LABS: ALT/SGPT 45 U/L (<40); AST/SGOT 26 U/L (<40); Albumin 2.1 gm/dL (3.2-5.2); Albumin/Globulin Ratio 0.7 (1.0-2.3); Alkaline Phosphatase 251 U/L (39-117); Bilirubin,Direct 0.5 mg/dL (<0.3); Bilirubin,Total 0.8 mg/dL (0.1-1.0); Blood Urea Nitrogen 42 mg/dL (6-20); Calcium 8.2 mg/dL (8.6-10.4); Carbon Dioxide 19 mmol/L (22-30); Chloride 115 mmol/L (96-108); Globulin 2.9 gm/dL (2.2-3.7); Glomerular Filtration Rate 47; Glucose 124 mg/dL (70-105); Lactate Dehydrogenase 131 U/L (135-225); Phosphorous 2.7 mg/dL (2.5-4.5); Triglycerides 90 mg/dL (<150); Uric Acid 7.2 mg/dL (2.5-8.0)
--- NOTE | 2022-08-20 07:49 | Internal Med Progress Note ---
SUBJECTIVE Subjective Patient information: Note initiated : 08/20/22 at 7:45 am Service Date, if different from initiated Date: [] Patient: Artemio Quintana a 47 y/o M admitted on 08/17/22 for kidney pain/ ROSANNE & bacterimia. Chief Complaint: [] Interval history: History of present illness: Mr. Quintana is a 47 year old M Presents to the ED with Remaining: for bacteremia. Patient was recently seen the other day for flank pain found to have a pyelonephritis and started on antibiotics but patient left AMA. patient complains of headache fever chills lightheadedness nausea vomiting, right flank pain. Blood cultures are gram- negative bacillus. Work-up in the ED with mild tachycardia. Leukocytosis improving but sodium is down a bit. Creatinine is improved but still quite elevated 2.6. BUN 51. Procalcitonin elevated CT of the abdomen pelvis was with findings distant pyelonephritis bilaterally. Patient has symptoms worse on the right. 08/18 Patient resting in bed. Tired poor sleep. Has continued flank pain but says it is slowly improving. Feels weak and fatigued. Anemia with a hemoglobin 9.6 today likely delusional, no gross bleeding. Sodium level improved. Metabolic acidosis noted. Creatinine minimally improved from yesterday afternoon. Continue IVF. Urine output has not been recorded. bilirubin elevated to have do not have a previous 1 to compare to. Minimal transaminitis. Procalcitonin gradually improving. patient refusing to drink beer offered to him with lunch and dinner even though he says he gets withdrawal when he does not drink alcohol. Patient developing severe alcohol withdrawal with tachycardia tachypnea and febrile hypertension, confusion. delirium tremens CIWA scores been elevating up to 17, IV ativan given and will transfer to icu. examined at bedside, pt restless, tremors, confusion. f/u vitals closely. 08/19 Patient altered and also sedated from withdrawal treatment. Severe withdrawal and DTs. leukocytosis with bandemia now present. repeat ct r/o abscess. d5ns today,. mild transaminitis. >>> CT a/p showing evidence of acute cholecystitis, also as previously mentioned transaminitis developed. Gallbladder ultrasound confirmed. Added IV Flagyl to cefepime. Patient seen by Dr. Munoz who plans for surgery on Wednesday. 08/20 Patient CIWA this morning 15. Patient more coherent although still altered and not at baseline, but able to carry a conversation. Leukocytosis improving. Continue on Rocephin and Flagyl for acute acalculous cholecystitis also finishing treatment for pyelonephritis. Repeat blood cultures negative. Creatinine slightly improved from yesterday, but still elevated. Unknown baseline last creatinine from 2019 was normal. Review of Systems: Pertinent positives as above. Denies chest pain/cough/dyspnea/diarrhea. PHYSICAL EXAM General: drowsy, No acute Distress Eyes/N/T: EOMI, no scleral icterus, Head/Neck: neck supple, full ROM, CV: RRR, No murmurs, Pulm: Clear b/l, no wheezing/rhonchi/rales, no respiratory distress Abd: soft, right flank tender, +BS x4 Ext: no clubbing/cyanosis/edema, nontender Neuro: drowsy, no focal deficits, spontaneously moves all extremities, follows commands Psychiatric: Skin: warm/dry, normal color Constitutional Vitals: Vital Signs Temp Pulse Resp BP Pulse Ox O2 Del Method 97.0 F 83 25 H 117/76 98 Room Air 08/20/22 07:21 08/20/22 03:00 08/20/22 07:21 08/20/22 07:21 08/20/22 06:00 08/20/22 07:21 Period Temp Pulse Resp BP Sys/Barney Pulse Ox O2 Del Method O2 Flow Rate Last 24 Hr 97.0 F-99.7 F 83-110 18-33 95-132/66-107 95-99 Room Air-Room Air Intake and Output 08/19/22 08/20/22 08/20/22 19:59 03:59 11:59 Intake Total 550 1340 240 Output Total 975 600 400 Balance -425 740 -160 Weight 61.28 kg Intake & Output: Intake & Output 08/19/22 08/20/22 08/20/22 19:59 03:59 11:59 Intake Total 550 1340 240 Output Total 975 600 400 Balance -425 740 -160 Weight 61.28 kg Intake: IV 100 1100 Dextrose 5%-Ns IV Solution 1, 1000 000 ml @ 100 mls/hr IV .Q10H [facility] Rx#:[id number] Oral 450 240 240 Output: Void Amount 975 600 400 Other: Meal snack snack Percent of Meal Consumed 100% 100% Feeding Ability Total Assistance Independent Urine Appearance Clear Clear Clear Urine Color Bright Yellow Dark Yellow Dark Yellow Stool Size Large Moderate Small Stool Color Brown Brown Brown Stool Consistency Liquid Soft Loose Loose # of times incontinent of 1 1 Bowels OBJ DATA Labs 08/20/22 05:42 08/20/22 05:42 Labs: Abnormal Lab Results 08/20/22 08/20/22 08/20/22 05:42 05:42 05:42 WBC RBC 2.59 L Hgb 8.4 L Hct 24.5 L POC Hct RDW 14.8 H Plt Count Immature Gran % (Auto) Neut % (Auto) Lymph % (Auto) Lymph # (Auto) Villalba # (Auto) Band Neutrophils % Lymphocytes % Immature Gran # Absolute Neutrophils RBC Morphology Polychromasia Hypochromasia Poikilocytosis Anisocytosis RBC Fragments POC VBG pO2 POC Venous O2 Sat VBG Lactic Acid POC Sodium Sodium POC Chloride Chloride 115 H Carbon Dioxide 19 L POC BUN BUN 42 H Creatinine 1.7 H POC Creatinine Glucose 124 H Calcium 8.2 L POC WB Ioniz Calcium Phosphorus Total Bilirubin Direct Bilirubin 0.5 H GGT 207 H AST ALT 45 H Alkaline Phosphatase 251 H Lactate Dehydrogenase 131 L Total Protein 5.0 L Albumin 2.1 L Albumin/Globulin Ratio 0.7 L Triglycerides Procalcitonin 0.89 H Urine Appearance Urine Protein Ur Leukocyte Esterase Urine RBC Urine WBC Urine Mucus 08/19/22 08/19/22 08/19/22 06:02 06:01 06:01 WBC 13.3 H RBC 2.85 L Hgb 9.2 L Hct 26.9 L POC Hct RDW 14.6 H Plt Count Immature Gran % (Auto) 1.4 H Neut % (Auto) 84.3 H Lymph % (Auto) 4.4 L Lymph # (Auto) 0.59 L Villalba # (Auto) 1.17 H Band Neutrophils % 17 H Lymphocytes % 3 L Immature Gran # 0.18 H Absolute Neutrophils 11.19 H RBC Morphology Abnormal A Polychromasia 1+ A Hypochromasia 1+ A Poikilocytosis Few A Anisocytosis 1+ A RBC Fragments Rare A POC VBG pO2 POC Venous O2 Sat VBG Lactic Acid POC Sodium Sodium POC Chloride Chloride Carbon Dioxide 19 L POC BUN BUN 46 H Creatinine 1.9 H POC Creatinine Glucose Calcium 8.2 L POC WB Ioniz Calcium Phosphorus Total Bilirubin 1.4 H Direct Bilirubin 1.0 H GGT 262 H AST 47 H ALT 63 H Alkaline Phosphatase 302 H Lactate Dehydrogenase Total Protein 5.3 L Albumin 2.2 L Albumin/Globulin Ratio 0.7 L Triglycerides Procalcitonin Urine Appearance Urine Protein Ur Leukocyte Esterase Urine RBC Urine WBC Urine Mucus 08/18/22 08/18/22 08/18/22 05:10 05:10 05:10 WBC RBC 2.98 L Hgb 9.6 L Hct 27.6 L POC Hct RDW Plt Count 127 L Immature Gran % (Auto) 0.8 H Neut % (Auto) 85.7 H Lymph % (Auto) 2.8 L Lymph # (Auto) 0.27 L Villalba # (Auto) 0.95 H Band Neutrophils % Lymphocytes % Immature Gran # 0.08 H Absolute Neutrophils 8.13 H RBC Morphology Polychromasia Hypochromasia Poikilocytosis Anisocytosis RBC Fragments POC VBG pO2 POC Venous O2 Sat VBG Lactic Acid POC Sodium Sodium POC Chloride Chloride Carbon Dioxide 19 L POC BUN BUN 53 H Creatinine 2.1 H POC Creatinine Glucose Calcium 8.3 L POC WB Ioniz Calcium Phosphorus 2.2 L Total Bilirubin 1.8 H Direct Bilirubin 1.4 H GGT 276 H AST 53 H ALT 43 H Alkaline Phosphatase 327 H Lactate Dehydrogenase Total Protein 5.1 L Albumin 2.0 L Albumin/Globulin Ratio 0.6 L Triglycerides 156 H Procalcitonin 1.46 H Urine Appearance Urine Protein Ur Leukocyte Esterase Urine RBC Urine WBC Urine Mucus 08/17/22 08/17/22 08/17/22 13:10 13:05 11:27 WBC RBC Hgb Hct POC Hct RDW Plt Count Immature Gran % (Auto) Neut % (Auto) Lymph % (Auto) Lymph # (Auto) Villalba # (Auto) Band Neutrophils % Lymphocytes % Immature Gran # Absolute Neutrophils RBC Morphology Polychromasia Hypochromasia Poikilocytosis Anisocytosis RBC Fragments POC VBG pO2 16 L POC Venous O2 Sat 20.0 L VBG Lactic Acid < 0.3 L POC Sodium Sodium 129 L POC Chloride Chloride 95 L Carbon Dioxide POC BUN BUN 56 H Creatinine 2.3 H POC Creatinine 2.6 H Glucose Calcium 8.3 L POC WB Ioniz Calcium Phosphorus Total Bilirubin Direct Bilirubin GGT AST ALT Alkaline Phosphatase Lactate Dehydrogenase Total Protein Albumin 2.5 L Albumin/Globulin Ratio Triglycerides Procalcitonin Urine Appearance Urine Protein Ur Leukocyte Esterase Urine RBC Urine WBC Urine Mucus 08/17/22 08/17/22 08/17/22 09:04 09:00 09:00 WBC RBC 3.40 L Hgb 11.2 L Hct 31.4 L POC Hct 34.0 L RDW Plt Count 122 L Immature Gran % (Auto) 0.8 H Neut % (Auto) 87.4 H Lymph % (Auto) 2.3 L Lymph # (Auto) 0.24 L Villalba # (Auto) 0.93 H Band Neutrophils % Lymphocytes % Immature Gran # 0.08 H Absolute Neutrophils 9.12 H RBC Morphology Polychromasia Hypochromasia Poikilocytosis Anisocytosis RBC Fragments POC VBG pO2 POC Venous O2 Sat VBG Lactic Acid POC Sodium 127 L Sodium POC Chloride 95 L Chloride Carbon Dioxide POC BUN 51 H BUN Creatinine POC Creatinine 2.9 H Glucose Calcium POC WB Ioniz Calcium 1.15 L Phosphorus Total Bilirubin Direct Bilirubin GGT AST ALT Alkaline Phosphatase Lactate Dehydrogenase Total Protein Albumin Albumin/Globulin Ratio Triglycerides Procalcitonin 2.50 H Urine Appearance Urine Protein Ur Leukocyte Esterase Urine RBC Urine WBC Urine Mucus 08/17/22 08:25 WBC RBC Hgb Hct POC Hct RDW Plt Count Immature Gran % (Auto) Neut % (Auto) Lymph % (Auto) Lymph # (Auto) Villal[place] # (Auto) Band Neutrophils % Lymphocytes % Immature Gran # Absolute Neutrophils RBC Morphology Polychromasia Hypochromasia Poikilocytosis Anisocytosis RBC Fragments POC VBG pO2 POC Venous O2 Sat VBG Lactic Acid POC Sodium Sodium POC Chloride Chloride Carbon Dioxide POC BUN BUN Creatinine POC Creatinine Glucose Calcium POC WB Ioniz Calcium Phosphorus Total Bilirubin Direct Bilirubin GGT AST ALT Alkaline Phosphatase Lactate Dehydrogenase Total Protein Albumin Albumin/Globulin Ratio Triglycerides Procalcitonin Urine Appearance Hazy A Urine Protein 100 A Ur Leukocyte Esterase 500 A Urine RBC 24 H Urine WBC 148 H Urine Mucus Few A Meds: Medications Acetaminophen (Acetaminophen 325 Mg Tablet) 650 mg PO Q6HP PRN; Protocol PRN Reason: Per Pain Protocol/Fever > 101 Hydrocodone Bitart/Acetaminophen (Hydrocodone/Apap 5/325mg Tablet) 1 tab PO Q4HP PRN PRN Reason: PAIN LEVEL 3-6 Last Admin: 08/20/22 01:13 Dose: 1 tab Albuterol/Ipratropium (Ipratropium/Albuterol 3 Ml Ampul.Neb) 3 ml NEB Q4HP PRN PRN Reason: Shortness Of Breath Cefepime HCl (Cefepime 2 Gm Vial) 2 gm IV Q8H [facility]; Protocol Last Admin: 08/20/22 05:39 Dose: 2 gm Chlordiazepoxide HCl (Chlordiazepoxide 25 Mg Capsule) 50 mg PO UD PRN; Protocol PRN Reason: Alcohol Withdrawal/Assess CIWA Last Admin: 08/20/22 01:13 Dose: 50 mg Clonidine HCl (Clonidine Hcl 0.1 Mg Tablet) 0.1 mg PO Q4HP PRN PRN Reason: ALC Last Admin: 08/19/22 00:42 Dose: 0.1 mg Docusate Sodium (Docusate Sodium 100 Mg Capsule) 100 mg PO BID [facility] Last Admin: 08/19/22 20:32 Dose: Not Given Enoxaparin Sodium (Enoxaparin 40 Mg/0.4 Ml Syringe) 40 mg SQ DAILY [facility] Last Admin: 08/19/22 09:05 Dose: 40 mg Folic Acid (Folic Acid 1 Mg Tablet) 1 mg PO DAILY [facility] Last Admin: 08/19/22 10:10 Dose: Not Given Haloperidol Lactate (Haloperidol Lactate 5 Mg/Ml Vial) 0.5 mg IM Q2HP PRN PRN Reason: Alcohol Withdrawal/Assess CIWA Potassium Chloride 40 meq/ (Dextrose) 520 mls @ 130 mls/hr IV UD PRN PRN Reason: Potassium < 3 Magnesium Sulfate (Magnesium Sulfate) 2 gm in 50 mls @ 50 mls/hr IV UD PRN PRN Reason: Magnesium </= 1.6 Thiamine HCl 100 mg/ Sodium (Chloride) 51 mls @ 50 mls/hr IV DAILY [facility] Stop: 08/21/22 10:02 Last Infusion: 08/19/22 10:14 Dose: Infused Metronidazole (Flagyl) 500 mg in 100 mls @ 100 mls/hr IV Q8H [facility]; Protocol Last Admin: 08/20/22 05:39 Dose: 100 mls/hr Iron Carb/Multivit/Car Tracer/Folic Acid (Multivit,Ther Iron,Ca,Fa & Min 1 Tablet) 1 tab PO DAILY [facility] Last Admin: 08/19/22 10:10 Dose: Not Given Lorazepam (Lorazepam 2 Mg/Ml Vial) 0 mg IV UD PRN; Protocol PRN Reason: Alcohol Withdrawal/Assess CIWA Last Admin: 08/20/22 01:12 Dose: 2 mg Morphine Sulfate (Morphine 4 Mg/Ml Vial) 0 mg IV Q3HP PRN PRN Reason: Pain Last Admin: 08/19/22 01:42 Dose: 2 mg Nicotine (Nicotine 21 Mg Patch) 21 mg TOPICAL DAILY@1000 [facility] Last Admin: 08/19/22 20:17 Dose: 21 mg Ondansetron HCl (Ondansetron 4 Mg/2 Ml Vial) 4 mg IV Q4HP PRN PRN Reason: Nausea And Vomiting Last Admin: 08/20/22 01:12 Dose: 4 mg Polyethylene Glycol (Polyethylene Glycol 3350 17 Gm Packet) 17 gm PO DAILYP PRN PRN Reason: Constipation Potassium Chloride (Potassium Chloride 20 Meq Tablet) 40 meq PO UD PRN PRN Reason: Potssium is 3-3.5 Last Admin: 08/17/22 17:30 Dose: 40 meq Potassium Chloride (Potassium Chloride 20 Meq Tablet) 40 meq PO UD PRN PRN Reason: Potassium < 3 Promethazine HCl (Promethazine 25 Mg/Ml Vial) 12.5 mg IV Q6HP PRN PRN Reason: Nausea And Vomiting Senna (Sennosides 1 Tablet) 2 tab PO DAILYP PRN PRN Reason: Constipation Sodium Chloride (0.9 % Sodium Chloride 10 Ml Syringe) 10 ml IV Q8 [facility] Last Admin: 08/20/22 05:39 Dose: 10 ml A/P Narrative A/P Narrative: A: *Alcohol w/d severe, Delirium Tremens: - *Acute acalculous cholecystitis: *Pyelonephritis(E.coli) b/l: -no obstruction on imaging *Bacteremia(E.coli): 2/2 above *Sepsis, severe: pct improving -leukocytosis w/bandemia improving *ROSANNE, suspected ATN: 2/2 above -slowly improving *Met acidosis: *Volume depletion: *Anemia: suspect dilutional, monitor *Hyponatremia: improved *Alcohol use disorder: states 2-?4 drinks per day and does Get withdrawal symptoms if he does not get alcohol daily *Transaminitis/Hyperbilirubina: 2/2 above *Tobacco abuse: *Chronic pain and neuropathy: *Diarrhea: Check fecal WBC and if negative will start Imodium P: -ciwa, vitamins/mineral, prn dawit -monitor vitals and rhythm closely -d/c ivf -Dr. Munoz following, plan is for cholecystectomy on Wednesday -cefepime/flagyl, pending UC/BC, duration abx 10-14 days -Monitor renal function/UOP -Monitor trend electrolytes and replace as needed -beer with meals -f/u pct, chem, cbc -monitor lft's -smoking cessation counseling -pt/ot -ppx: Lovenox Time Spent With Patient Time: Total time spent is greater than 50% in coordination of care (as documented) at patient's floor/unit and/or counseling patient: Critical Care Time: Yes Total Critical Care Time: 50 QUALITY Stroke Symptom Onset Unknown: No VTE Deep Vein Thrombosis/Pulmonary Embolism Present on Admission: No
[2022-08-20 08:00] LABS: Anisocytosis 1+ (None Seen); Band Neutrophils % 8 % (0-10); Lymphocytes % 4 % (15-49); Monocytes % (Manual) 6 % (1-12); Platelet Estimate NORMAL (Normal); RBC Morphology ABNORMAL (Normal); Segmented Neutrophils % 82 % (38-78)
[2022-08-20] MEDS: DOCUSATE SODIUM 100 MG CAPSULE PO SCH (08:25)
[2022-08-20] MEDS: cloNIDine HCL 0.1 MG TABLET PO PRN (09:06)
[2022-08-20] MEDS: FOLIC ACID 1 MG TABLET PO SCH (09:06)
[2022-08-20] MEDS: MULTIVIT,THER IRON,CA,FA & MIN 1 TABLET PO SCH (09:06)
[2022-08-20] MEDS: NICOTINE 21 MG PATCH TOPICAL SCH (09:07)
[2022-08-20] MEDS: ENOXAPARIN 40 MG/0.4 ML SYRINGE SQ SCH (09:07)
[2022-08-20] MEDS: POTASSIUM CHLORIDE 20 MEQ TABLET PO PRN (09:07)
[2022-08-20] MEDS: THIAMINE 100 MG in 0.9 % SODIUM CHLORIDE 50 ML IV SCH (09:08)
--- NOTE | 2022-08-20 17:42 | General Surgery Progress Note ---
SUBJECTIVE Subjective Patient information: Note initiated : 08/20/22 at 5:36 pm Service Date, if different from initiated Date: [] Patient: Artemio Quintana 47 y/o M admitted on 08/17/22 for kidney pain/ ROSANNE & bacterimia. Chief Complaint: [] Interval history: Patient appears to be clinically stable. He answers some questions but still does not appear to be mentally aware. He gave consent to proceed with cholecystectomy tomorrow. Renal status and LFTs are improved. Constitutional Vitals: Vital Signs Temp Pulse Resp BP Pulse Ox O2 Del Method 97.5 F 78 20 125/90 100 Room Air 08/20/22 16:00 08/20/22 11:00 08/20/22 16:00 08/20/22 16:00 08/20/22 11:00 08/20/22 16:00 Period Temp Pulse Resp BP Sys/Barney Pulse Ox O2 Del Method O2 Flow Rate Last 24 Hr 97.0 F-97.7 F 78-83 15-33 95-138/70-107 96-100 Room Air-Room Air Intake and Output 08/20/22 08/20/22 08/20/22 03:59 11:59 19:59 Intake Total 1340 1391 100 Output Total 600 750 225 Balance 740 641 -125 Weight 135 lb 1.6 oz 135 lb 1.6 oz Patient Weight 08/21/22 03:59 Weight 135 lb 1.6 oz Intake & Output: Intake & Output 08/20/22 08/20/22 08/20/22 03:59 11:59 19:59 Intake Total 1340 1391 100 Output Total 600 750 225 Balance 740 641 -125 Weight 135 lb 1.6 oz 135 lb 1.6 oz Intake: IV 1100 1151 100 Dextrose 5%-Ns IV Solution 1, 1000 1000 000 ml @ 100 mls/hr IV .Q10H [facility] Rx#:[id number] Vitamin B1 100 mg In Sodium 51 Chloride 0.9% 50 ml @ 50 mls/hr IV DAILY [facility] Rx#:[id number] Oral 240 240 Output: Void Amount 600 750 Urine/Stool Mix 225 Other: Meal snack snack Percent of Meal Consumed 100% 100% Feeding Ability Total Assistance Independent Urine Appearance Clear Clear Urine Color Dark Yellow Dark Yellow Stool Size Moderate Moderate Moderate Stool Color Brown Brown Brown Stool Consistency Soft Loose Liquid # of times incontinent of 1 1 Bowels General appearance: mild distress and thin Eye Eye exam: Present normal appearance and PERRL; Absent scleral icterus ENT ENT exam: Present mucous membranes moist and normal oropharynx Neck Neck exam: Present full ROM and normal inspection; Absent lymphadenopathy or tenderness Respiratory Respiratory exam: Present normal respiratory exam and CTAB; Absent rales Cardiovascular Cardiovascular exam: Present RRR, +S1, +S2 and tachycardia (Heart rate 120); Absent JVD GI/Abdominal GI/Abdominal exam: Present normal bowel sounds, distended, guarding (Right upper quadrant) and tenderness (Right upper quadrant and epigastric tenderness) Extremities Exam Extremities exam: Present normal inspection and neurovascular intact Back Exam Additional comments: Unable to evaluate gait and stance Neurological Exam Neurological exam: Present abnormal gait and altered; Absent alert or oriented X3 Psychiatric Psychiatric exam: Present agitated and anxious Skin Skin exam: Present normal color A/P Assessment and plan (1) Acute acalculous cholecystitis: Status: Acute (2) Alcohol withdrawal syndrome, with delirium: Status: Acute (3) Bacteremia due to Gram-negative bacteria: Status: Acute (4) ROSANNE (acute kidney injury): Status: Acute Plan Continue present therapy Scheduled for cholecystectomy tomorrow Time Spent With Patient Time: Total time spent is greater than 50% in coordination of care (as documented) at patient's floor/unit and/or counseling patient:
[2022-08-21] MEDS: LORazepam 2 MG/ML VIAL IV PRN (01:47)
[2022-08-21] MEDS: morphine 4 MG/ML VIAL IV PRN ×2 (03:35→20:02)
[2022-08-21] MEDS: CEFEPIME 2 GM VIAL IV SCH ×3 (05:36→21:28)
[2022-08-21] MEDS: metroNIDAZOLE 500 MG/100 ML BAG IV SCH ×3 (05:36→21:28)
[2022-08-21] MEDS: 0.9 % SODIUM CHLORIDE 10 ML SYRINGE IV SCH ×3 (05:37→21:29)
[2022-08-21 06:50] LABS: INR 1.4 (0.9-1.1); Prothrombin Time 17.7 sec (11.9-14.5)
[2022-08-21 07:04] LABS: ALT/SGPT 36 U/L (<40); AST/SGOT 15 U/L (<40); Albumin/Globulin Ratio 0.6 (1.0-2.3); Alkaline Phosphatase 221 U/L (39-117); Bilirubin,Direct 0.5 mg/dL (<0.3); Bilirubin,Total 0.7 mg/dL (0.1-1.0); Blood Urea Nitrogen 35 mg/dL (6-20); Calcium 8.3 mg/dL (8.6-10.4); Carbon Dioxide 19 mmol/L (22-30); Chloride 118 mmol/L (96-108); Globulin 3.5 gm/dL (2.2-3.7); Glomerular Filtration Rate 47; Glucose 104 mg/dL (70-105); Lactate Dehydrogenase 154 U/L (135-225); Triglycerides 73 mg/dL (<150)
[2022-08-21] MEDS ORDERED: LOPERAMIDE 2 MG CAPSULE PO PRN (08:01)
--- NOTE | 2022-08-21 08:01 | Internal Med Progress Note ---
SUBJECTIVE Subjective Patient information: Note initiated : 08/21/22 at 8:00 am Service Date, if different from initiated Date: [] Patient: Artemio Quintana a 47 y/o M admitted on 08/17/22 for kidney pain/ ROSANNE & bacterimia. Chief Complaint: [] Interval history: History of present illness: Mr. Quintana is a 47 year old M Presents to the ED with Remaining: for bacteremia. Patient was recently seen the other day for flank pain found to have a pyelonephritis and started on antibiotics but patient left AMA. patient complains of headache fever chills lightheadedness nausea vomiting, right flank pain. Blood cultures are gram- negative bacillus. Work-up in the ED with mild tachycardia. Leukocytosis improving but sodium is down a bit. Creatinine is improved but still quite elevated 2.6. BUN 51. Procalcitonin elevated CT of the abdomen pelvis was with findings distant pyelonephritis bilaterally. Patient has symptoms worse on the right. 08/18 Patient resting in bed. Tired poor sleep. Has continued flank pain but says it is slowly improving. Feels weak and fatigued. Anemia with a hemoglobin 9.6 today likely delusional, no gross bleeding. Sodium level improved. Metabolic acidosis noted. Creatinine minimally improved from yesterday afternoon. Continue IVF. Urine output has not been recorded. bilirubin elevated to have do not have a previous 1 to compare to. Minimal transaminitis. Procalcitonin gradually improving. patient refusing to drink beer offered to him with lunch and dinner even though he says he gets withdrawal when he does not drink alcohol. Patient developing severe alcohol withdrawal with tachycardia tachypnea and febrile hypertension, confusion. delirium tremens CIWA scores been elevating up to 17, IV ativan given and will transfer to icu. examined at bedside, pt restless, tremors, confusion. f/u vitals closely. 08/19 Patient altered and also sedated from withdrawal treatment. Severe withdrawal and DTs. leukocytosis with bandemia now present. repeat ct r/o abscess. d5ns today,. mild transaminitis. >>> CT a/p showing evidence of acute cholecystitis, also as previously mentioned transaminitis developed. Gallbladder ultrasound confirmed. Added IV Flagyl to cefepime. Patient seen by Dr. Munoz who plans for surgery on Wednesday. 08/20 Patient CIWA this morning 15. Patient more coherent although still altered and not at baseline, but able to carry a conversation. Leukocytosis improving. Continue on Rocephin and Flagyl for acute acalculous cholecystitis also finishing treatment for pyelonephritis. Repeat blood cultures negative. Creatinine slightly improved from yesterday, but still elevated. Unknown baseline last creatinine from 2019 was normal. 08/21 Patient requiring less needed benzodiazepines. Mentation better today. Patient sodium mildly elevated 147 today we will start on hypotonic IV solution and follow-up sodium level. Patient undergo cholecystectomy. Patient does admit abdominal pain nausea Laura participate morning conversation with him. Does have some occasional nausea and headache. Review of Systems: Pertinent positives as above. Denies chest pain/cough/dyspnea/diarrhea. PHYSICAL EXAM General: awake, No acute Distress Eyes/N/T: EOMI, no scleral icterus, Head/Neck: neck supple, full ROM, CV: RRR, No murmurs, Pulm: Clear b/l, no wheezing/rhonchi/rales, no respiratory distress Abd: soft, RUQ tender, +BS x4 Ext: no clubbing/cyanosis/edema, nontender Neuro: minimally drowsy but much more alert today, no focal deficits, spontaneously moves all extremities, follows commands Psychiatric: Skin: warm/dry, normal color Constitutional Vitals: Vital Signs Temp Pulse Resp BP Pulse Ox O2 Del Method 97.8 F 106 H 20 120/80 98 Room Air 08/21/22 04:00 08/20/22 18:00 08/21/22 06:00 08/21/22 06:00 08/21/22 06:00 08/21/22 06:00 Period Temp Pulse Resp BP Sys/Barney Pulse Ox O2 Del Method O2 Flow Rate Last 24 Hr 97.1 F-97.8 F 78-106 15-30 98-138/72-90 94-100 Room Air-Room Air Intake and Output 08/20/22 08/21/22 08/21/22 19:59 03:59 11:59 Intake Total 100 320 100 Output Total 115 259 8326 Balance -125 -230 -1075 Weight 61.598 kg Intake & Output: Intake & Output 08/20/22 08/21/22 08/21/22 19:59 03:59 11:59 Intake Total 100 320 100 Output Total 165 624 0579 Balance -125 -230 -1075 Weight 61.598 kg Intake: IV 100 100 100 Oral 220 Output: Urine Catheter Amount 375 Void Amount 550 350 Urine/Stool Mix 225 450 Other: Urine Appearance Cloudy Clear Urine Color Pale Yellow Stool Size Moderate Stool Color Brown Stool Consistency Liquid OBJ DATA Labs 08/20/22 05:42 08/21/22 05:16 Labs: Abnormal Lab Results 08/21/22 08/21/22 08/20/22 05:16 05:16 05:42 WBC RBC Hgb Hct RDW Immature Gran % (Auto) Neut % (Auto) Lymph % (Auto) Lymph # (Auto) [place] # (Auto) Seg Neutrophils % Band Neutrophils % Lymphocytes % Immature Gran # Absolute Neutrophils RBC Morphology Polychromasia Hypochromasia Poikilocytosis Anisocytosis RBC Fragments PT 17.7 H INR 1.4 H Sodium 147 H Chloride 118 H Carbon Dioxide 19 L BUN 35 H Creatinine 1.7 H Glucose Calcium 8.3 L Total Bilirubin Direct Bilirubin 0.5 H GGT 176 H AST ALT Alkaline Phosphatase 221 H Lactate Dehydrogenase Total Protein 5.5 L Albumin 2.0 L Albumin/Globulin Ratio 0.6 L Procalcitonin 0.89 H 08/20/22 08/20/22 08/19/22 05:42 05:42 06:02 WBC 13.3 H RBC 2.59 L 2.85 L Hgb 8.4 L 9.2 L Hct 24.5 L 26.9 L RDW 14.8 H 14.6 H Immature Gran % (Auto) 1.4 H Neut % (Auto) 84.3 H Lymph % (Auto) 4.4 L Lymph # (Auto) 0.59 L [place] # (Auto) 1.17 H Seg Neutrophils % 82 H Band Neutrophils % Lymphocytes % 4 L Immature Gran # 0.18 H Absolute Neutrophils 11.19 H RBC Morphology Abnormal A Polychromasia Hypochromasia Poikilocytosis Anisocytosis 1+ A RBC Fragments PT INR Sodium Chloride 115 H Carbon Dioxide 19 L BUN 42 H Creatinine 1.7 H Glucose 124 H Calcium 8.2 L Total Bilirubin Direct Bilirubin 0.5 H GGT 207 H AST ALT 45 H Alkaline Phosphatase 251 H Lactate Dehydrogenase 131 L Total Protein 5.0 L Albumin 2.1 L Albumin/Globulin Ratio 0.7 L Procalcitonin 08/19/22 08/19/22 06:01 06:01 WBC RBC Hgb Hct RDW Immature Gran % (Auto) Neut % (Auto) Lymph % (Auto) Lymph # (Auto) [place] # (Auto) Seg Neutrophils % Band Neutrophils % 17 H Lymphocytes % 3 L Immature Gran # Absolute Neutrophils RBC Morphology Abnormal A Polychromasia 1+ A Hypochromasia 1+ A Poikilocytosis Few A Anisocytosis 1+ A RBC Fragments Rare A PT INR Sodium Chloride Carbon Dioxide 19 L BUN 46 H Creatinine 1.9 H Glucose Calcium 8.2 L Total Bilirubin 1.4 H Direct Bilirubin 1.0 H GGT 262 H AST 47 H ALT 63 H Alkaline Phosphatase 302 H Lactate Dehydrogenase Total Protein 5.3 L Albumin 2.2 L Albumin/Globulin Ratio 0.7 L Procalcitonin Meds: Medications Acetaminophen (Acetaminophen 325 Mg Tablet) 650 mg PO Q6HP PRN; Protocol PRN Reason: Per Pain Protocol/Fever > 101 Hydrocodone Bitart/Acetaminophen (Hydrocodone/Apap 5/325mg Tablet) 1 tab PO Q4HP PRN PRN Reason: PAIN LEVEL 3-6 Last Admin: 08/20/22 09:06 Dose: 1 tab Albuterol/Ipratropium (Ipratropium/Albuterol 3 Ml Ampul.Neb) 3 ml NEB Q4HP PRN PRN Reason: Shortness Of Breath Cefepime HCl (Cefepime 2 Gm Vial) 2 gm IV Q8H [facility]; Protocol Last Admin: 08/21/22 05:36 Dose: 2 gm Chlordiazepoxide HCl (Chlordiazepoxide 25 Mg Capsule) 50 mg PO UD PRN; Protocol PRN Reason: Alcohol Withdrawal/Assess CIWA Last Admin: 08/20/22 20:35 Dose: 50 mg Clonidine HCl (Clonidine Hcl 0.1 Mg Tablet) 0.1 mg PO Q4HP PRN PRN Reason: ALC Last Admin: 08/20/22 09:06 Dose: 0.1 mg Enoxaparin Sodium (Enoxaparin 40 Mg/0.4 Ml Syringe) 40 mg SQ DAILY [facility] Last Admin: 08/20/22 09:07 Dose: 40 mg Folic Acid (Folic Acid 1 Mg Tablet) 1 mg PO DAILY [facility] Last Admin: 08/20/22 09:06 Dose: 1 mg Haloperidol Lactate (Haloperidol Lactate 5 Mg/Ml Vial) 0.5 mg IM Q2HP PRN PRN Reason: Alcohol Withdrawal/Assess CIWA Potassium Chloride 40 meq/ (Dextrose) 520 mls @ 130 mls/hr IV UD PRN PRN Reason: Potassium < 3 Magnesium Sulfate (Magnesium Sulfate) 2 gm in 50 mls @ 50 mls/hr IV UD PRN PRN Reason: Magnesium </= 1.6 Thiamine HCl 100 mg/ Sodium (Chloride) 51 mls @ 50 mls/hr IV DAILY [facility] Stop: 08/21/22 10:02 Last Infusion: 08/20/22 10:10 Dose: Infused Metronidazole (Flagyl) 500 mg in 100 mls @ 100 mls/hr IV Q8H [facility]; Protocol Last Infusion: 08/21/22 06:44 Dose: Infused Iron Carb/Multivit/[place]/Folic Acid (Multivit,Ther Iron,Ca,Fa & Min 1 Tablet) 1 tab PO DAILY [facility] Last Admin: 08/20/22 09:06 Dose: 1 tab Lorazepam (Lorazepam 2 Mg/Ml Vial) 0 mg IV UD PRN; Protocol PRN Reason: Alcohol Withdrawal/Assess CIWA Last Admin: 08/21/22 01:47 Dose: 2 mg Morphine Sulfate (Morphine 4 Mg/Ml Vial) 0 mg IV Q3HP PRN PRN Reason: Pain Last Admin: 08/21/22 03:35 Dose: 2 mg Nicotine (Nicotine 21 Mg Patch) 21 mg TOPICAL DAILY@1000 [facility] Last Admin: 08/20/22 09:07 Dose: 21 mg Ondansetron HCl (Ondansetron 4 Mg/2 Ml Vial) 4 mg IV Q4HP PRN PRN Reason: Nausea And Vomiting Last Admin: 08/20/22 01:12 Dose: 4 mg Polyethylene Glycol (Polyethylene Glycol 3350 17 Gm Packet) 17 gm PO DAILYP PRN PRN Reason: Constipation Potassium Chloride (Potassium Chloride 20 Meq Tablet) 40 meq PO UD PRN PRN Reason: Potssium is 3-3.5 Last Admin: 08/20/22 09:07 Dose: 40 meq Potassium Chloride (Potassium Chloride 20 Meq Tablet) 40 meq PO UD PRN PRN Reason: Potassium < 3 Promethazine HCl (Promethazine 25 Mg/Ml Vial) 12.5 mg IV Q6HP PRN PRN Reason: Nausea And Vomiting Senna (Sennosides 1 Tablet) 2 tab PO DAILYP PRN PRN Reason: Constipation Sodium Chloride (0.9 % Sodium Chloride 10 Ml Syringe) 10 ml IV Q8 [facility] Last Admin: 08/21/22 05:37 Dose: 10 ml A/P Narrative A/P Narrative: A: *Alcohol w/d severe, Delirium Tremens: improving - *Acute acalculous cholecystitis: *Pyelonephritis(E.coli) b/l: -no obstruction on imaging *Bacteremia(E.coli): 2/2 above *Sepsis, severe: pct improving -leukocytosis w/bandemia improving *ROSANNE, suspected ATN: 2/2 above -slowly improving *Met acidosis: *Volume depletion: *Anemia: suspect dilutional, monitor *Hyponatremia now hypernatremia: *Alcohol use disorder: states 2-?4 drinks per day and does Get withdrawal symptoms if he does not get alcohol daily *Transaminitis/Hyperbilirubina: 2/2 above *Tobacco abuse: *Chronic pain and neuropathy: *Diarrhea since admission: Check fecal WBC and if negative will start Imodium P: -ciwa, vitamins/mineral, prn dawit -monitor vitals and rhythm closely -hypotonic ivf soln, monitor sodium -Dr. Munoz following, plan is for cholecystectomy on Wednesday -cefepime/flagyl, pending UC/BC, duration abx 10-14 days -Monitor renal function/UOP -Monitor trend electrolytes and replace as needed -beer with meals -f/u pct, chem, cbc -monitor lft's -smoking cessation counseling -pt/ot -ppx: Lovenox Time Spent With Patient Time: Total time spent is greater than 50% in coordination of care (as documented) at patient's floor/unit and/or counseling patient: Subsequent: Total time with patient: 50 - 65 Minutes QUALITY Stroke Symptom Onset Unknown: No VTE Deep Vein Thrombosis/Pulmonary Embolism Present on Admission: No
[2022-08-21] MEDS ORDERED: SUGAMMADEX SODIUM 200 MG/2 ML VIAL IV ONE (09:40)
[2022-08-21] MEDS ORDERED: MIDAZOLAM 2 MG/2 ML VIAL ONE (09:40)
[2022-08-21] MEDS ORDERED: LIDOCAINE HCL/PF 100 MG/5 ML SYRINGE IV ONE (09:40)
[2022-08-21] MEDS ORDERED: ONDANSETRON 4 MG/2 ML VIAL ONE (09:40)
[2022-08-21] MEDS ORDERED: fentaNYL 100 MCG/2 ML VIAL IV ONE (09:40)
[2022-08-21] MEDS ORDERED: PROPOFOL 200 MG/20 ML VIAL IV ONE (09:40)
[2022-08-21] MEDS ORDERED: ROCURONIUM 10 MG/ML ML IV ONE (09:40)
[2022-08-21] MEDS ORDERED: IPRATROPIUM/ALBUTEROL 3 ML AMPUL.NEB NEB PRN (10:22)
[2022-08-21] MEDS ORDERED: ACETAMINOPHEN 1,000 MG/100 ML BAG IV ONE (10:22)
[2022-08-21] MEDS ORDERED: LABETALOL 5 MG/ML ML IV PRN (10:22)
[2022-08-21] MEDS ORDERED: MEPERIDINE 25 MG/ML VIAL IV PRN (10:22)
[2022-08-21] MEDS ORDERED: NALOXONE HCL 0.4 MG/ML VIAL IV PRN (10:22)
[2022-08-21] MEDS ORDERED: fentaNYL 100 MCG/2 ML VIAL IV PRN (10:22)
--- NOTE | 2022-08-21 10:33 | Brief Operative Note ---
Brief Operative Note Date of procedure: 08/21/22 Pre-op diagnosis: acute cholecystitis , Post-op diagnosis: other (acute cholecystitis ) Procedure: laparoscopic cholecystectomy Grafts/Implants: No Anesthesia: GETA Findings: dilated edematous gallbladder Complications: none Surgeon: Alia Munoz Estimated blood loss (cc): 10 Specimens Removed/Pathology: other (gallbladder) Condition: stable Disposition: PACU
[2022-08-21 11:57] LABS: ALT/SGPT 38 U/L (<40); AST/SGOT 28 U/L (<40); Albumin 2.1 gm/dL (3.2-5.2); Albumin/Globulin Ratio 0.6 (1.0-2.3); Alkaline Phosphatase 216 U/L (39-117); Bilirubin,Total 0.8 mg/dL (0.1-1.0); Blood Urea Nitrogen 31 mg/dL (6-20); Calcium 8.4 mg/dL (8.6-10.4); Carbon Dioxide 19 mmol/L (22-30); Chloride 117 mmol/L (96-108); Globulin 3.3 gm/dL (2.2-3.7); Glomerular Filtration Rate 55; Glucose 111 mg/dL (70-105)
[2022-08-21] MEDS: NICOTINE 21 MG PATCH TOPICAL SCH (11:59)
[2022-08-21] MEDS: MULTIVIT,THER IRON,CA,FA & MIN 1 TABLET PO SCH (12:00)
[2022-08-21] MEDS: THIAMINE 100 MG in 0.9 % SODIUM CHLORIDE 50 ML IV SCH (12:00)
[2022-08-21] MEDS: FOLIC ACID 1 MG TABLET PO SCH (12:00)
[2022-08-21] MEDS: HYDROcodone/APAP 5/325MG TABLET PO PRN ×2 (12:00→22:00)
[2022-08-21] MEDS: ENOXAPARIN 40 MG/0.4 ML SYRINGE SQ SCH (12:25)
[2022-08-21] MEDS: DEXTROSE 5% IN WATER 1,000 ML IV SCH (12:28)
[2022-08-21 17:26] LABS: POC Calcium, Ionized 1.16 (1.16-1.32); POC Creatinine 1.5 (0.6-1.2); POC Potassium 3.4 (3.3-5.1)
[2022-08-21 18:27] LABS: Blood Urea Nitrogen 31 mg/dL (6-20); Calcium 8.8 mg/dL (8.6-10.4); Carbon Dioxide 22 mmol/L (22-30); Chloride 114 mmol/L (96-108); Glomerular Filtration Rate 55; Glucose 127 mg/dL (70-105)
[2022-08-22] MEDS: DEXTROSE 5% IN WATER 1,000 ML IV SCH (00:28)
[2022-08-22] MEDS: morphine 4 MG/ML VIAL IV PRN (01:03)
[2022-08-22] MEDS: CEFEPIME 2 GM VIAL IV SCH ×3 (05:42→21:47)
[2022-08-22] MEDS: metroNIDAZOLE 500 MG/100 ML BAG IV SCH ×3 (05:42→21:47)
[2022-08-22] MEDS: 0.9 % SODIUM CHLORIDE 10 ML SYRINGE IV SCH ×3 (05:45→21:48)
[2022-08-22 07:00] LABS: Basophils # (Auto) 0.05 K/mcL (0.00-0.30); Basophils % (Auto) 0.3 % (0.0-2.0); Eosinophils # (Auto) 0.25 K/mcL (0.00-0.70); Eosinophils % (Auto) 1.6 % (0.0-7.0); Hematocrit 29.3 % (40.1-51.0); Hemoglobin 8.9 g/dL (13.7-17.5); Lymphocytes # (Auto) 0.89 K/mcL (1.50-4.80); Lymphocytes % (Auto) 5.8 % (15.5-49.0); Mean Corpuscular HGB Conc 30.4 g/dL (31.0-36.0); Mean Platelet Volume 11.2 fL (8.8-12.5); Monocytes # (Auto) 0.69 K/mcL (0.10-0.90); Monocytes % (Auto) 4.5 % (1.0-12.0); Neutrophils % (Auto) 86.5 % (38.0-78.0); Platelet Count 289 K/mcL (140-440); RBC 2.79 M/mcL (4.63-6.08); WBC 15.3 K/mcL (4.5-11.0)
[2022-08-22 07:18] LABS: ALT/SGPT 67 U/L (<40); AST/SGOT 104 U/L (<40); Albumin 2.1 gm/dL (3.2-5.2); Albumin/Globulin Ratio 0.6 (1.0-2.3); Alkaline Phosphatase 675 U/L (39-117); Bilirubin,Total 1.4 mg/dL (0.1-1.0); Blood Urea Nitrogen 24 mg/dL (6-20); Calcium 8.5 mg/dL (8.6-10.4); Carbon Dioxide 19 mmol/L (22-30); Chloride 113 mmol/L (96-108); Globulin 3.4 gm/dL (2.2-3.7); Glomerular Filtration Rate 60; Glucose 104 mg/dL (70-105); Lactate Dehydrogenase 239 U/L (135-225); Phosphorous 3.6 mg/dL (2.5-4.5); Triglycerides 76 mg/dL (<150); Uric Acid 4.6 mg/dL (2.5-8.0)
--- NOTE | 2022-08-22 08:10 | Internal Med Progress Note ---
SUBJECTIVE Subjective Patient information: Note initiated : 08/22/22 at 8:07 am Service Date, if different from initiated Date: [] Patient: Artemio Quintana a 47 y/o M admitted on 08/17/22 for kidney pain/ ROSANNE & bacterimia. Chief Complaint: [] Interval history: History of present illness: Mr. Quintana is a 47 year old M Presents to the ED with Remaining: for bacteremia. Patient was recently seen the other day for flank pain found to have a pyelonephritis and started on antibiotics but patient left AMA. patient complains of headache fever chills lightheadedness nausea vomiting, right flank pain. Blood cultures are gram- negative bacillus. Work-up in the ED with mild tachycardia. Leukocytosis improving but sodium is down a bit. Creatinine is improved but still quite elevated 2.6. BUN 51. Procalcitonin elevated CT of the abdomen pelvis was with findings distant pyelonephritis bilaterally. Patient has symptoms worse on the right. 08/18 Patient resting in bed. Tired poor sleep. Has continued flank pain but says it is slowly improving. Feels weak and fatigued. Anemia with a hemoglobin 9.6 today likely delusional, no gross bleeding. Sodium level improved. Metabolic acidosis noted. Creatinine minimally improved from yesterday afternoon. Continue IVF. Urine output has not been recorded. bilirubin elevated to have do not have a previous 1 to compare to. Minimal transaminitis. Procalcitonin gradually improving. patient refusing to drink beer offered to him with lunch and dinner even though he says he gets withdrawal when he does not drink alcohol. Patient developing severe alcohol withdrawal with tachycardia tachypnea and febrile hypertension, confusion. delirium tremens CIWA scores been elevating up to 17, IV ativan given and will transfer to icu. examined at bedside, pt restless, tremors, confusion. f/u vitals closely. 08/19 Patient altered and also sedated from withdrawal treatment. Severe withdrawal and DTs. leukocytosis with bandemia now present. repeat ct r/o abscess. d5ns today,. mild transaminitis. >>> CT a/p showing evidence of acute cholecystitis, also as previously mentioned transaminitis developed. Gallbladder ultrasound confirmed. Added IV Flagyl to cefepime. Patient seen by Dr. Munoz who plans for surgery on Wednesday. 08/20 Patient CIWA this morning 15. Patient more coherent although still altered and not at baseline, but able to carry a conversation. Leukocytosis improving. Continue on Rocephin and Flagyl for acute acalculous cholecystitis also finishing treatment for pyelonephritis. Repeat blood cultures negative. Creatinine slightly improved from yesterday, but still elevated. Unknown baseline last creatinine from 2019 was normal. 08/21 Patient requiring less needed benzodiazepines. Mentation better today. Patient sodium mildly elevated 147 today we will start on hypotonic IV solution and follow-up sodium level. Patient undergo cholecystectomy. Patient does admit abdominal pain nausea Laura participate morning conversation with him. Does have some occasional nausea and headache. 08/22 Patient still feels groggy and out of it but seems to be be doing better. Vital signs with mild tachycardia. Did not require IV Ativan last night. Had ch olecystectomy yesterday. Leukocytosis today. Manual differential pending. Did have diarrhea yesterday but no stools today. Fecal WBCs negative. Patient does complain of headache and occasional cough. Transaminitis again noted and monitor. Review of Systems: Pertinent positives as above. Denies chest pain/cough/dyspnea. PHYSICAL EXAM General: awake, No acute Distress Eyes/N/T: EOMI, no scleral icterus, Head/Neck: neck supple, full ROM, CV: RRR, No murmurs, Pulm: Clear b/l, no wheezing/rhonchi/rales, no respiratory distress Abd: soft, RUQ tender, +BS x4 Ext: no clubbing/cyanosis/edema, nontender Neuro: minimally drowsy but much more alert today, no focal deficits, spontaneously moves all extremities, follows commands Psychiatric: Skin: warm/dry, normal color Constitutional Vitals: Vital Signs Temp Pulse Resp BP Pulse Ox O2 Del Method O2 Flow Rate 97.6 F 86 16 127/85 99 Room Air 4 08/22/22 07:00 08/22/22 07:00 08/22/22 07:00 08/22/22 07:00 08/22/22 07:00 08/22/22 07:00 08/21/22 10:45 Period Temp Pulse Resp BP Sys/Barney Pulse Ox O2 Del Method O2 Flow Rate Last 24 Hr 97.3 F-98.4 F 72-92 12-26 107-156/66-105 98-100 Room Air-Room Air 4-4 Intake and Output 08/21/22 08/22/22 08/22/22 19:59 03:59 11:59 Intake Total 151 1100 Output Total 375 350 750 Balance -224 750 -750 Weight 61.87 kg Intake & Output: Intake & Output 08/21/22 08/22/22 08/22/22 19:59 03:59 11:59 Intake Total 151 1100 Output Total 375 350 750 Balance -224 750 -750 Weight 61.87 kg Intake: IV 151 1100 Dextrose 5% in Water 1,000 ml @ 1000 100 mls/hr IV .Q10H [facility] Rx#: [id number] Vitamin B1 100 mg In Sodium 51 Chloride 0.9% 50 ml @ 50 mls/hr IV DAILY [facility] Rx#:[id number] Oral 0 Output: Urine Catheter Amount 375 Void Amount 350 750 Other: Urine Appearance Clear Clear Clear Urine Color Yellow Pale Light Felicita OBJ DATA Labs 08/22/22 05:29 08/22/22 05:29 Labs: Abnormal Lab Results 08/22/22 08/22/22 08/21/22 05:29 05:29 17:23 WBC 15.3 H RBC 2.79 L Hgb 8.9 L Hct 29.3 L POC Hct 27.0 L MCV 105.0 H MCHC 30.4 L RDW 16.0 H Immature Gran % (Auto) 1.3 H Neut % (Auto) 86.5 H Lymph % (Auto) 5.8 L Lymph # (Auto) 0.89 L Seg Neutrophils % Band Neutrophils % Lymphocytes % Immature Gran # 0.20 H Absolute Neutrophils 13.21 H RBC Morphology Polychromasia Hypochromasia Poikilocytosis Anisocytosis RBC Fragments PT INR POC Sodium 147 H Sodium POC Chloride 114 H Chloride 113 H Carbon Dioxide 19 L POC Total CO2 20.0 L POC Anion Gap 17.0 H POC BUN 29 H BUN 24 H Creatinine 1.4 H POC Creatinine 1.5 H Glucose POC Glucose 123 H Calcium 8.5 L Total Bilirubin 1.4 H Direct Bilirubin 1.0 H GGT 602 H AST 104 H ALT 67 H Alkaline Phosphatase 675 H Lactate Dehydrogenase 239 H Total Protein 5.5 L Albumin 2.1 L Albumin/Globulin Ratio 0.6 L Procalcitonin 08/21/22 08/21/22 08/21/22 17:20 10:58 05:16 WBC RBC Hgb Hct POC Hct MCV MCHC RDW Immature Gran % (Auto) Neut % (Auto) Lymph % (Auto) Lymph # (Auto) Seg Neutrophils % Band Neutrophils % Lymphocytes % Immature Gran # Absolute Neutrophils RBC Morphology Polychromasia Hypochromasia Poikilocytosis Anisocytosis RBC Fragments PT INR POC Sodium Sodium 147 H 147 H POC Chloride Chloride 114 H 117 H 118 H Carbon Dioxide 19 L 19 L POC Total CO2 POC Anion Gap POC BUN BUN 31 H 31 H 35 H Creatinine 1.5 H 1.5 H 1.7 H POC Creatinine Glucose 127 H 111 H POC Glucose Calcium 8.4 L 8.3 L Total Bilirubin Direct Bilirubin 0.5 H GGT 176 H AST ALT Alkaline Phosphatase 216 H 221 H Lactate Dehydrogenase Total Protein 5.4 L 5.5 L Albumin 2.1 L 2.0 L Albumin/Globulin Ratio 0.6 L 0.6 L Procalcitonin 08/21/22 08/20/22 08/20/22 05:16 05:42 05:42 WBC RBC Hgb Hct POC Hct MCV MCHC RDW Immature Gran % (Auto) Neut % (Auto) Lymph % (Auto) Lymph # (Auto) Seg Neutrophils % Band Neutrophils % Lymphocytes % Immature Gran # Absolute Neutrophils RBC Morphology Polychromasia Hypochromasia Poikilocytosis Anisocytosis RBC Fragments PT 17.7 H INR 1.4 H POC Sodium Sodium POC Chloride Chloride 115 H Carbon Dioxide 19 L POC Total CO2 POC Anion Gap POC BUN BUN 42 H Creatinine 1.7 H POC Creatinine Glucose 124 H POC Glucose Calcium 8.2 L Total Bilirubin Direct Bilirubin 0.5 H GGT 207 H AST ALT 45 H Alkaline Phosphatase 251 H Lactate Dehydrogenase 131 L Total Protein 5.0 L Albumin 2.1 L Albumin/Globulin Ratio 0.7 L Procalcitonin 0.89 H 08/20/22 08/19/22 05:42 06:01 WBC RBC 2.59 L Hgb 8.4 L Hct 24.5 L POC Hct MCV MCHC RDW 14.8 H Immature Gran % (Auto) Neut % (Auto) Lymph % (Auto) Lymph # (Auto) Seg Neutrophils % 82 H Band Neutrophils % 17 H Lymphocytes % 4 L 3 L Immature Gran # Absolute Neutrophils RBC Morphology Abnormal A Abnormal A Polychromasia 1+ A Hypochromasia 1+ A Poikilocytosis Few A Anisocytosis 1+ A 1+ A RBC Fragments Rare A PT INR POC Sodium Sodium POC Chloride Chloride Carbon Dioxide POC Total CO2 POC Anion Gap POC BUN BUN Creatinine POC Creatinine Glucose POC Glucose Calcium Total Bilirubin Direct Bilirubin GGT AST ALT Alkaline Phosphatase Lactate Dehydrogenase Total Protein Albumin Albumin/Globulin Ratio Procalcitonin Meds: Medications Acetaminophen (Acetaminophen 325 Mg Tablet) 650 mg PO Q6HP PRN; Protocol PRN Reason: Per Pain Protocol/Fever > 101 Hydrocodone Bitart/Acetaminophen (Hydrocodone/Apap 5/325mg Tablet) 1 tab PO Q4HP PRN PRN Reason: PAIN LEVEL 3-6 Last Admin: 08/21/22 22:00 Dose: 1 tab Albuterol/Ipratropium (Ipratropium/Albuterol 3 Ml Ampul.Neb) 3 ml NEB Q4HP PRN PRN Reason: Shortness Of Breath Cefepime HCl (Cefepime 2 Gm Vial) 2 gm IV Q8H [facility]; Protocol Last Admin: 08/22/22 05:42 Dose: 2 gm Chlordiazepoxide HCl (Chlordiazepoxide 25 Mg Capsule) 50 mg PO UD PRN; Protocol PRN Reason: Alcohol Withdrawal/Assess CIWA Last Admin: 08/20/22 20:35 Dose: 50 mg Clonidine HCl (Clonidine Hcl 0.1 Mg Tablet) 0.1 mg PO Q4HP PRN PRN Reason: ALC Last Admin: 08/20/22 09:06 Dose: 0.1 mg Enoxaparin Sodium (Enoxaparin 40 Mg/0.4 Ml Syringe) 40 mg SQ DAILY [facility] Last Admin: 08/21/22 12:25 Dose: Not Given Folic Acid (Folic Acid 1 Mg Tablet) 1 mg PO DAILY [facility] Last Admin: 08/21/22 12:00 Dose: 1 mg Haloperidol Lactate (Haloperidol Lactate 5 Mg/Ml Vial) 0.5 mg IM Q2HP PRN PRN Reason: Alcohol Withdrawal/Assess CIWA Potassium Chloride 40 meq/ (Dextrose) 520 mls @ 130 mls/hr IV UD PRN PRN Reason: Potassium < 3 Magnesium Sulfate (Magnesium Sulfate) 2 gm in 50 mls @ 50 mls/hr IV UD PRN PRN Reason: Magnesium </= 1.6 Metronidazole (Flagyl) 500 mg in 100 mls @ 100 mls/hr IV Q8H [facility]; Protocol Last Admin: 08/22/22 05:42 Dose: 100 mls/hr Iron Carb/Multivit/[employer]/Folic Acid (Multivit,Ther Iron,Ca,Fa & Min 1 Tablet) 1 tab PO DAILY [facility] Last Admin: 08/21/22 12:00 Dose: 1 tab Loperamide HCl (Loperamide 2 Mg Capsule) 2 mg PO PRN PRN PRN Reason: Diarrhea Lorazepam (Lorazepam 2 Mg/Ml Vial) 0 mg IV UD PRN; Protocol PRN Reason: Alcohol Withdrawal/Assess CIWA Last Admin: 08/21/22 01:47 Dose: 2 mg Morphine Sulfate (Morphine 4 Mg/Ml Vial) 0 mg IV Q3HP PRN PRN Reason: Pain Last Admin: 08/22/22 01:03 Dose: 3 mg Nicotine (Nicotine 21 Mg Patch) 21 mg TOPICAL DAILY@1000 [facility] Last Admin: 08/21/22 11:59 Dose: 21 mg Ondansetron HCl (Ondansetron 4 Mg/2 Ml Vial) 4 mg IV Q4HP PRN PRN Reason: Nausea And Vomiting Last Admin: 08/20/22 01:12 Dose: 4 mg Polyethylene Glycol (Polyethylene Glycol 3350 17 Gm Packet) 17 gm PO DAILYP PRN PRN Reason: Constipation Potassium Chloride (Potassium Chloride 20 Meq Tablet) 40 meq PO UD PRN PRN Reason: Potssium is 3-3.5 Last Admin: 08/20/22 09:07 Dose: 40 meq Potassium Chloride (Potassium Chloride 20 Meq Tablet) 40 meq PO UD PRN PRN Reason: Potassium < 3 Promethazine HCl (Promethazine 25 Mg/Ml Vial) 12.5 mg IV Q6HP PRN PRN Reason: Nausea And Vomiting Senna (Sennosides 1 Tablet) 2 tab PO DAILYP PRN PRN Reason: Constipation Sodium Chloride (0.9 % Sodium Chloride 10 Ml Syringe) 10 ml IV Q8 [facility] Last Admin: 08/22/22 05:45 Dose: 10 ml A/P Narrative A/P Narrative: A: *Alcohol w/d severe, Delirium Tremens: improving - *Acute acalculous cholecystitis: s/p gage sofia (08/21) *Pyelonephritis(E.coli) b/l: -no obstruction on imaging *Bacteremia(E.coli): 2/2 above *Sepsis, severe: pct improving -leukocytosis bumped today *ROSANNE, suspected ATN(unknown baseline) suspect CKD III-?II: 2/2 above -slowly improving *Met acidosis: *Volume depletion: *Anemia: suspect dilutional, monitor *Hyponatremia now hypernatremia: *Alcohol use disorder: *Transaminitis/Hyperbilirubina: 2/2 above *Tobacco abuse: *Chronic pain and neuropathy: *Diarrhea since admission: Check fecal WBC and if negative will start Imodium P: -ciwa, vitamins/mineral, prn dawit -monitor vitals and rhythm closely -hypotonic ivf soln d/c, monitor sodium -cefepime/flagyl, pending UC/BC, duration abx 10-14 days -Monitor renal function/UOP -Monitor trend electrolytes and replace as needed -beer with meals -f/u pct, chem, cbc -monitor lft's -smoking cessation counseling -pt/ot -ppx: Lovenox Time Spent With Patient Time: Total time spent is greater than 50% in coordination of care (as documented) at patient's floor/unit and/or counseling patient: Subsequent: Total time with patient: 50 - 65 Minutes QUALITY Stroke Symptom Onset Unknown: No VTE Deep Vein Thrombosis/Pulmonary Embolism Present on Admission: No
[2022-08-22] MEDS: ENOXAPARIN 40 MG/0.4 ML SYRINGE SQ SCH (09:17)
[2022-08-22] MEDS: FOLIC ACID 1 MG TABLET PO SCH (09:17)
[2022-08-22] MEDS: MULTIVIT,THER IRON,CA,FA & MIN 1 TABLET PO SCH (09:17)
[2022-08-22 12:08] LABS: Anisocytosis 1+ (None Seen); Band Neutrophils % 1 % (0-10); Eosinophils % (Manual) 1 % (0-7); Lymphocytes % 7 % (15-49); Monocytes % (Manual) 1 % (1-12); Myelocytes % 1 %; Platelet Estimate NORMAL (Normal); RBC Morphology ABNORMAL (Normal); Segmented Neutrophils % 89 % (38-78)
[2022-08-22] MEDS: NICOTINE 21 MG PATCH TOPICAL SCH (13:53)
--- NOTE | 2022-08-22 14:08 | General Surgery Progress Note ---
SUBJECTIVE Subjective Patient information: Note initiated : 08/22/22 at 2:04 pm Service Date, if different from initiated Date: [] Patient: Artemio Quintana 47 y/o M admitted on 08/17/22 for kidney pain/ ROSANNE & bacterimia. Chief Complaint: [] Principal diagnosis: Cholecystitis Interval history: Patient is status post laparoscopic cholecystectomy on yesterday. He has acute inflammation no major infection of the gallbladder. he is stable except for postoperative pain. He states that he only hurts when he tries to sit up in bed. His appetite is poor but he denies nausea. He has not received sedative medications and is much clearer mentally. White blood count 15.3, hemoglobin 8.9, BUN 24, creatinine 1.4. Bilirubin 1.4 AST 104, ALT 67 alk phos 675. Constitutional Vitals: Vital Signs Temp Pulse Resp BP Pulse Ox O2 Del Method O2 Flow Rate 97.6 F 81 16 109/76 100 Room Air 4 08/22/22 13:26 08/22/22 13:26 08/22/22 13:26 08/22/22 13:26 08/22/22 13:26 08/22/22 13:26 08/21/22 10:45 Period Temp Pulse Resp BP Sys/Barney Pulse Ox O2 Del Method O2 Flow Rate Last 24 Hr 97.3 F-98.2 F 72-112 15-24 107-139/72-86 98-100 Room Air-Room Air Intake and Output 08/22/22 08/22/22 08/22/22 03:59 11:59 19:59 Intake Total 1100 580 Output Total 350 1230 Balance 750 -650 Weight 136 lb 6.4 oz Intake & Output: Intake & Output 08/22/22 08/22/22 08/22/22 03:59 11:59 19:59 Intake Total 1100 580 Output Total 350 1230 Balance 750 -650 Weight 136 lb 6.4 oz Intake: IV 1100 100 Dextrose 5% in Water 1,000 ml @ 1000 100 mls/hr IV .Q10H [facility] Rx#: [id number] Oral 480 Output: Void Amount 350 1230 Other: Meal Breakfast Percent of Meal Consumed 25% Feeding Ability Independent Urine Appearance Clear Clear Urine Color Pale Dark Yellow General appearance: mild distress and thin Eye Eye exam: Present normal appearance and PERRL; Absent scleral icterus ENT ENT exam: Present mucous membranes moist and normal oropharynx Neck Neck exam: Present full ROM and normal inspection; Absent lymphadenopathy or tenderness Respiratory Respiratory exam: Present normal respiratory exam and CTAB; Absent rales Cardiovascular Cardiovascular exam: Present RRR, +S1, +S2 and tachycardia (Heart rate 120); Absent JVD GI/Abdominal GI/Abdominal exam: Present normal bowel sounds, distended, guarding (Right upper quadrant) and tenderness (Right upper quadrant and epigastric tenderness) Additional comments: Pain is around operative port sites Extremities Exam Extremities exam: Present normal inspection and neurovascular intact Back Exam Additional comments: Unable to evaluate gait and stance Neurological Exam Neurological exam: Present abnormal gait and altered; Absent alert or oriented X3 Psychiatric Psychiatric exam: Present agitated and anxious Skin Skin exam: Present normal color A/P Assessment and plan (1) Acute acalculous cholecystitis: Status: Acute (2) Alcohol withdrawal syndrome, with delirium: Status: Acute (3) History of alcohol abuse: Status: Acute (4) Bacteremia due to Gram-negative bacteria: Status: Acute (5) Acute UTI (urinary tract infection): Status: Acute (6) ROSANNE (acute kidney injury): Status: Acute Plan Patient is clinically stable We will continue to closely monitor his liver panel Time Spent With Patient Time: Total time spent is greater than 50% in coordination of care (as documented) at patient's floor/unit and/or counseling patient:
[2022-08-22] MEDS: HYDROcodone/APAP 5/325MG TABLET PO PRN (17:30)
[2022-08-23] MEDS: metroNIDAZOLE 500 MG/100 ML BAG IV SCH ×3 (05:50→22:58)
[2022-08-23] MEDS: CEFEPIME 2 GM VIAL IV SCH (05:50)
[2022-08-23] MEDS: 0.9 % SODIUM CHLORIDE 10 ML SYRINGE IV SCH ×4 (05:51→23:03)
[2022-08-23 06:28] LABS: Basophils # (Auto) 0.08 K/mcL (0.00-0.30); Basophils % (Auto) 0.5 % (0.0-2.0); Eosinophils % (Auto) 2.5 % (0.0-7.0); Hematocrit 25.4 % (40.1-51.0); Hemoglobin 8.2 g/dL (13.7-17.5); Lymphocytes # (Auto) 0.93 K/mcL (1.50-4.80); Lymphocytes % (Auto) 5.9 % (15.5-49.0); Mean Cell Volume 98.4 fL (80.0-100.0); Mean Corpuscular HGB Conc 32.3 g/dL (31.0-36.0); Monocytes % (Auto) 4.4 % (1.0-12.0); Platelet Count 335 K/mcL (140-440); RBC 2.58 M/mcL (4.63-6.08); WBC 15.8 K/mcL (4.5-11.0)
[2022-08-23 06:55] LABS: ALT/SGPT 44 U/L (<40); AST/SGOT 27 U/L (<40); Albumin/Globulin Ratio 0.6 (1.0-2.3); Alkaline Phosphatase 494 U/L (39-117); Bilirubin,Direct 0.4 mg/dL (<0.3); Bilirubin,Total 0.7 mg/dL (0.1-1.0); Blood Urea Nitrogen 20 mg/dL (6-20); Calcium 8.6 mg/dL (8.6-10.4); Carbon Dioxide 23 mmol/L (22-30); Chloride 110 mmol/L (96-108); Globulin 3.3 gm/dL (2.2-3.7); Glomerular Filtration Rate 65; Glucose 97 mg/dL (70-105); Lactate Dehydrogenase 123 U/L (135-225); Phosphorous 3.1 mg/dL (2.5-4.5); Triglycerides 97 mg/dL (<150); Uric Acid 3.9 mg/dL (2.5-8.0)
--- NOTE | 2022-08-23 07:45 | Internal Med Progress Note ---
SUBJECTIVE Subjective Patient information: Note initiated : 08/23/22 at 7:39 am Service Date, if different from initiated Date: [] Patient: Artemio Quintana a 47 y/o M admitted on 08/17/22 for kidney pain/ ROSANNE & bacterimia. Chief Complaint: [] Principal diagnosis: Cholecystitis Interval history: History of present illness: Mr. Quintana is a 47 year old M Presents to the ED with Remaining: for bacteremia. Patient was recently seen the other day for flank pain found to have a pyelonephritis and started on antibiotics but patient left AMA. patient complains of headache fever chills lightheadedness nausea vomiting, right flank pain. Blood cultures are gram- negative bacillus. Work-up in the ED with mild tachycardia. Leukocytosis improving but sodium is down a bit. Creatinine is improved but still quite elevated 2.6. BUN 51. Procalcitonin elevated CT of the abdomen pelvis was with findings distant pyelonephritis bilaterally. Patient has symptoms worse on the right. 08/18 Patient resting in bed. Tired poor sleep. Has continued flank pain but says it is slowly improving. Feels weak and fatigued. Anemia with a hemoglobin 9.6 today likely delusional, no gross bleeding. Sodium level improved. Metabolic acidosis noted. Creatinine minimally improved from yesterday afternoon. Continue IVF. Urine output has not been recorded. bilirubin elevated to have do not have a previous 1 to compare to. Minimal transaminitis. Procalcitonin gradually improving. patient refusing to drink beer offered to him with lunch and dinner even though he says he gets withdrawal when he does not drink alcohol. Patient developing severe alcohol withdrawal with tachycardia tachypnea and febrile hypertension, confusion. delirium tremens CIWA scores been elevating up to 17, IV ativan given and will transfer to icu. examined at bedside, pt restless, tremors, confusion. f/u vitals closely. 08/19 Patient altered and also sedated from withdrawal treatment. Severe withdrawal and DTs. leukocytosis with bandemia now present. repeat ct r/o abscess. d5ns today,. mild transaminitis. >>> CT a/p showing evidence of acute cholecystitis, also as previously mentioned transaminitis developed. Gallbladder ultrasound confirmed. Added IV Flagyl to cefepime. Patient seen by Dr. Munoz who plans for surgery on Wednesday. 08/20 Patient CIWA this morning 15. Patient more coherent although still altered and not at baseline, but able to carry a conversation. Leukocytosis improving. Continue on Rocephin and Flagyl for acute acalculous cholecystitis also finishing treatment for pyelonephritis. Repeat blood cultures negative. Creatinine slightly improved from yesterday, but still elevated. Unknown baseline last creatinine from 2019 was normal. 08/21 Patient requiring less needed benzodiazepines. Mentation better today. Patient sodium mildly elevated 147 today we will start on hypotonic IV solution and f ollow-up sodium level. Patient undergo cholecystectomy. Patient does admit abdominal pain nausea Laura participate morning conversation with him. Does have some occasional nausea and headache. 08/22 Patient still feels groggy and out of it but seems to be be doing better. Vital signs with mild tachycardia. Did not require IV Ativan last night. Had cholecystectomy yesterday. Leukocytosis today. Manual differential pending. Did have diarrhea yesterday but no stools today. Fecal WBCs negative. Patient does complain of headache and occasional cough. Transaminitis again noted and monitor. 08/23 Patient seems to be feeling a bit better today. Still quite weak. But more alert. Leukocytosis persistent today. Afebrile. Does not appear toxic does not have any new complaints. No bandemia on yesterday's labs. Creatinine 1.3 today from 1.4 yesterday. Patient severely deconditioned and weak and may need rehab. No diarrhea today. Monitor CBC and if continues to persist consider repeat CT. Review of Systems: Pertinent positives as above. Denies chest pain/cough/dyspnea. PHYSICAL EXAM General: awake, No acute Distress Eyes/N/T: EOMI, no scleral icterus, Head/Neck: neck supple, full ROM, CV: RRR, No murmurs, Pulm: Clear b/l, no wheezing/rhonchi/rales, no respiratory distress Abd: soft, RUQ tender, +BS x4 Ext: no clubbing/cyanosis/edema, nontender Neuro: minimally drowsy but much more alert today, no focal deficits, spontaneously moves all extremities, follows commands Psychiatric: Skin: warm/dry, normal color Constitutional Vitals: Vital Signs Temp Pulse Resp BP Pulse Ox O2 Del Method O2 Flow Rate 98.0 F 100 H 19 112/79 98 Room Air 4 08/23/22 04:01 08/22/22 18:01 08/23/22 04:01 08/23/22 04:01 08/23/22 04:01 08/23/22 04:01 08/21/22 10:45 Period Temp Pulse Resp BP Sys/Barney Pulse Ox O2 Del Method O2 Flow Rate Last 24 Hr 97.5 F-98.4 F 80-112 - 100-119/66-80 95-100 Room Air-Room Air Intake and Output 08/22/22 08/23/22 08/23/22 19:59 03:59 11:59 Intake Total 1340 500 220 Output Total 450 650 400 Balance 890 -150 -180 Weight 61.779 kg Intake & Output: Intake & Output 08/22/22 08/23/22 08/23/22 19:59 03:59 11:59 Intake Total 1340 500 220 Output Total 450 650 400 Balance 890 -150 -180 Weight 61.779 kg Intake: IV 1100 100 Dextrose 5% in Water 1,000 ml @ 1000 100 mls/hr IV .Q10H [facility] Rx#: [id number] Oral 240 400 220 Output: Void Amount 450 650 400 Other: Urine Appearance Clear Clear Urine Color Light Felicita Yellow OBJ DATA Labs 08/23/22 05:31 08/23/22 05:31 Labs: Abnormal Lab Results 08/23/22 08/23/22 08/22/22 05:31 05:31 05:29 WBC 15.8 H RBC 2.58 L Hgb 8.2 L Hct 25.4 L POC Hct MCV MCHC RDW 15.0 H Immature Gran % (Auto) 1.7 H Neut % (Auto) 85.0 H Lymph % (Auto) 5.9 L Lymph # (Auto) 0.93 L Seg Neutrophils % 89 H Lymphocytes % 7 L Immature Gran # 0.27 H Absolute Neutrophils 13.44 H RBC Morphology Abnormal A Anisocytosis 1+ A PT INR POC Sodium Sodium POC Chloride Chloride 110 H Carbon Dioxide POC Total CO2 Anion Gap 7.0 L POC Anion Gap POC BUN BUN Creatinine 1.3 H POC Creatinine Glucose POC Glucose Calcium Total Bilirubin Direct Bilirubin 0.4 H GGT 412 H AST ALT 44 H Alkaline Phosphatase 494 H Lactate Dehydrogenase 123 L Total Protein 5.3 L Albumin 2.0 L Albumin/Globulin Ratio 0.6 L 08/22/22 08/22/22 08/21/22 05:29 05:29 17:23 WBC 15.3 H RBC 2.79 L Hgb 8.9 L Hct 29.3 L POC Hct 27.0 L MCV 105.0 H MCHC 30.4 L RDW 16.0 H Immature Gran % (Auto) 1.3 H Neut % (Auto) 86.5 H Lymph % (Auto) 5.8 L Lymph # (Auto) 0.89 L Seg Neutrophils % Lymphocytes % Immature Gran # 0.20 H Absolute Neutrophils 13.21 H RBC Morphology Anisocytosis PT INR POC Sodium 147 H Sodium POC Chloride 114 H Chloride 113 H Carbon Dioxide 19 L POC Total CO2 20.0 L Anion Gap POC Anion Gap 17.0 H POC BUN 29 H BUN 24 H Creatinine 1.4 H POC Creatinine 1.5 H Glucose POC Glucose 123 H Calcium 8.5 L Total Bilirubin 1.4 H Direct Bilirubin 1.0 H GGT 602 H AST 104 H ALT 67 H Alkaline Phosphatase 675 H Lactate Dehydrogenase 239 H Total Protein 5.5 L Albumin 2.1 L Albumin/Globulin Ratio 0.6 L 08/21/22 08/21/22 08/21/22 17:20 10:58 05:16 WBC RBC Hgb Hct POC Hct MCV MCHC RDW Immature Gran % (Auto) Neut % (Auto) Lymph % (Auto) Lymph # (Auto) Seg Neutrophils % Lymphocytes % Immature Gran # Absolute Neutrophils RBC Morphology Anisocytosis PT INR POC Sodium Sodium 147 H 147 H POC Chloride Chloride 114 H 117 H 118 H Carbon Dioxide 19 L 19 L POC Total CO2 Anion Gap POC Anion Gap POC BUN BUN 31 H 31 H 35 H Creatinine 1.5 H 1.5 H 1.7 H POC Creatinine Glucose 127 H 111 H POC Glucose Calcium 8.4 L 8.3 L Total Bilirubin Direct Bilirubin 0.5 H GGT 176 H AST ALT Alkaline Phosphatase 216 H 221 H Lactate Dehydrogenase Total Protein 5.4 L 5.5 L Albumin 2.1 L 2.0 L Albumin/Globulin Ratio 0.6 L 0.6 L 08/21/22 08/20/22 05:16 05:42 WBC RBC Hgb Hct POC Hct MCV MCHC RDW Immature Gran % (Auto) Neut % (Auto) Lymph % (Auto) Lymph # (Auto) Seg Neutrophils % 82 H Lymphocytes % 4 L Immature Gran # Absolute Neutrophils RBC Morphology Abnormal A Anisocytosis 1+ A PT 17.7 H INR 1.4 H POC Sodium Sodium POC Chloride Chloride Carbon Dioxide POC Total CO2 Anion Gap POC Anion Gap POC BUN BUN Creatinine POC Creatinine Glucose POC Glucose Calcium Total Bilirubin Direct Bilirubin GGT AST ALT Alkaline Phosphatase Lactate Dehydrogenase Total Protein Albumin Albumin/Globulin Ratio Meds: Medications Acetaminophen (Acetaminophen 325 Mg Tablet) 650 mg PO Q6HP PRN; Protocol PRN Reason: Per Pain Protocol/Fever > 101 Last Admin: 08/22/22 09:16 Dose: 650 mg Hydrocodone Bitart/Acetaminophen (Hydrocodone/Apap 5/325mg Tablet) 1 tab PO Q4HP PRN PRN Reason: PAIN LEVEL 3-6 Last Admin: 08/22/22 17:30 Dose: 1 tab Albuterol/Ipratropium (Ipratropium/Albuterol 3 Ml Ampul.Neb) 3 ml NEB Q4HP PRN PRN Reason: Shortness Of Breath Cefepime HCl (Cefepime 2 Gm Vial) 2 gm IV Q8H [facility]; Protocol Last Admin: 08/23/22 05:50 Dose: 2 gm Chlordiazepoxide HCl (Chlordiazepoxide 25 Mg Capsule) 50 mg PO UD PRN; Protocol PRN Reason: Alcohol Withdrawal/Assess CIWA Last Admin: 08/20/22 20:35 Dose: 50 mg Clonidine HCl (Clonidine Hcl 0.1 Mg Tablet) 0.1 mg PO Q4HP PRN PRN Reason: ALC Last Admin: 08/20/22 09:06 Dose: 0.1 mg Enoxaparin Sodium (Enoxaparin 40 Mg/0.4 Ml Syringe) 40 mg SQ DAILY [facility] Last Admin: 08/22/22 09:17 Dose: 40 mg Folic Acid (Folic Acid 1 Mg Tablet) 1 mg PO DAILY [facility] Last Admin: 08/22/22 09:17 Dose: 1 mg Haloperidol Lactate (Haloperidol Lactate 5 Mg/Ml Vial) 0.5 mg IM Q2HP PRN PRN Reason: Alcohol Withdrawal/Assess CIWA Potassium Chloride 40 meq/ (Dextrose) 520 mls @ 130 mls/hr IV UD PRN PRN Reason: Potassium < 3 Magnesium Sulfate (Magnesium Sulfate) 2 gm in 50 mls @ 50 mls/hr IV UD PRN PRN Reason: Magnesium </= 1.6 Metronidazole (Flagyl) 500 mg in 100 mls @ 100 mls/hr IV Q8H [facility]; Protocol Last Admin: 08/23/22 05:50 Dose: 100 mls/hr Iron Carb/Multivit/Marathon/Folic Acid (Multivit,Ther Iron,Ca,Fa & Min 1 Tablet) 1 tab PO DAILY [facility] Last Admin: 08/22/22 09:17 Dose: 1 tab Loperamide HCl (Loperamide 2 Mg Capsule) 2 mg PO PRN PRN PRN Reason: Diarrhea Lorazepam (Lorazepam 2 Mg/Ml Vial) 0 mg IV UD PRN; Protocol PRN Reason: Alcohol Withdrawal/Assess CIWA Last Admin: 08/21/22 01:47 Dose: 2 mg Morphine Sulfate (Morphine 4 Mg/Ml Vial) 0 mg IV Q3HP PRN PRN Reason: Pain Last Admin: 08/22/22 01:03 Dose: 3 mg Nicotine (Nicotine 21 Mg Patch) 21 mg TOPICAL DAILY@1000 [facility] Last Admin: 08/22/22 13:53 Dose: Not Given Ondansetron HCl (Ondansetron 4 Mg/2 Ml Vial) 4 mg IV Q4HP PRN PRN Reason: Nausea And Vomiting Last Admin: 08/20/22 01:12 Dose: 4 mg Polyethylene Glycol (Polyethylene Glycol 3350 17 Gm Packet) 17 gm PO DAILYP PRN PRN Reason: Constipation Potassium Chloride (Potassium Chloride 20 Meq Tablet) 40 meq PO UD PRN PRN Reason: Potssium is 3-3.5 Last Admin: 08/20/22 09:07 Dose: 40 meq Potassium Chloride (Potassium Chloride 20 Meq Tablet) 40 meq PO UD PRN PRN Reason: Potassium < 3 Promethazine HCl (Promethazine 25 Mg/Ml Vial) 12.5 mg IV Q6HP PRN PRN Reason: Nausea And Vomiting Senna (Sennosides 1 Tablet) 2 tab PO DAILYP PRN PRN Reason: Constipation Sodium Chloride (0.9 % Sodium Chloride 10 Ml Syringe) 10 ml IV Q8 [facility] Last Admin: 08/23/22 05:51 Dose: 10 ml A/P Narrative A/P Narrative: A: *Alcohol w/d severe, Delirium Tremens: improving - *Acute acalculous cholecystitis: s/p gage sofia (08/21) *Pyelonephritis(E.coli) b/l: -no obstruction on imaging *Bacteremia(E.coli): 2/2 above *Sepsis, severe: pct improving -leukocytosis persistent, no bandemia, afebrile *ROSANNE, suspected ATN(unknown baseline) suspect CKD II: 2/2 above -slowly improving *Met acidosis: improving *Atelectasis: *Volume depletion: improved *Anemia: suspect dilutional, monitor *Hyponatremia now hypernatremia: *Alcohol use disorder: *Transaminitis/Hyperbilirubina: 2/2 above,improving *Tobacco abuse: *Chronic pain and neuropathy: *Diarrhea since admission: Check fecal WBC and if negative will start Imodium -improved *Generalized weakness/deconditioning: P: -monitor cbc, consider repeat CT a/p if persists -ciwa, vitamins/mineral, prn dawit -monitor vitals and rhythm closely -cefepime/flagyl, duration abx 10-14 days -Monitor renal function/UOP -Monitor trend electrolytes and replace as needed -monitor H&H, transfuse for <7 -IS -monitor lft's -smoking cessation counseling -pt/ot -CM for placement needs, quite weak and may need SNF -ppx: Lovenox Time Spent With Patient Time: Total time spent is greater than 50% in coordination of care (as documented) at patient's floor/unit and/or counseling patient: Subsequent: Total time with patient: 50 - 65 Minutes QUALITY Stroke Symptom Onset Unknown: No VTE Deep Vein Thrombosis/Pulmonary Embolism Present on Admission: No
[2022-08-23] MEDS: MULTIVIT,THER IRON,CA,FA & MIN 1 TABLET PO SCH (10:00)
[2022-08-23] MEDS: FOLIC ACID 1 MG TABLET PO SCH (10:00)
[2022-08-23] MEDS: ENOXAPARIN 40 MG/0.4 ML SYRINGE SQ SCH (10:00)
[2022-08-23] MEDS: HYDROcodone/APAP 5/325MG TABLET PO PRN ×2 (10:03→19:50)
[2022-08-23] MEDS: NICOTINE 21 MG PATCH TOPICAL SCH (10:17)
[2022-08-23] MEDS: cefTRIAXone 2 GM in DEXTROSE 5% IN WATER 50 ML IV SCH (12:58)
--- NOTE | 2022-08-23 14:58 | General Surgery Progress Note ---
SUBJECTIVE Subjective Patient information: Note initiated : 08/23/22 at 2:55 pm Service Date, if different from initiated Date: [] Patient: Artemio Quintana 47 y/o M admitted on 08/17/22 for kidney pain/ ROSANNE & bacterimia. Chief Complaint: [] Principal diagnosis: Cholecystitis Interval history: Patient continues to do well. He is much more mentally alert and responds appropriately. He has been afebrile. White blood count 15.8, hemoglobin 8.2, hematocrit 25.4, potassium 3.8, BUN 20, creatinine 1.3. Bilirubin remains normal and transaminases are decreasing. Constitutional Vitals: Vital Signs Temp Pulse Resp BP Pulse Ox O2 Del Method O2 Flow Rate 98.1 F 100 H 21 105/70 98 Room Air 4 08/23/22 12:00 08/22/22 18:01 08/23/22 12:00 08/23/22 12:00 08/23/22 08:01 08/23/22 04:01 08/21/22 10:45 Period Temp Pulse Resp BP Sys/Barney Pulse Ox O2 Del Method O2 Flow Rate Last 24 Hr 97.5 F-98.4 F 93-100 - 100-119/66-79 95-100 Room Air-Room Air Intake and Output 08/23/22 08/23/22 08/23/22 03:59 11:59 19:59 Intake Total 500 320 50 Output Total 650 400 Balance -150 -80 50 Weight 136 lb 3.2 oz Intake & Output: Intake & Output 08/23/22 08/23/22 08/23/22 03:59 11:59 19:59 Intake Total 500 320 50 Output Total 650 400 Balance -150 -80 50 Weight 136 lb 3.2 oz Intake: IV 100 100 50 Rocephin 2 gm In Dextrose 5% in 50 Water 50 ml @ 100 mls/hr IV Q24H [facility] Rx#:[id number] Oral 400 220 Output: Void Amount 650 400 Other: Urine Appearance Clear Clear Urine Color Light Felicita Yellow General appearance: mild distress and thin Eye Eye exam: Present normal appearance and PERRL; Absent scleral icterus ENT ENT exam: Present mucous membranes moist and normal oropharynx Neck Neck exam: Present full ROM and normal inspection; Absent lymphadenopathy or tenderness Respiratory Respiratory exam: Present normal respiratory exam and CTAB; Absent rales Cardiovascular Cardiovascular exam: Present RRR, +S1, +S2 and tachycardia (Heart rate 120); Absent JVD GI/Abdominal GI/Abdominal exam: Present normal bowel sounds, distended, guarding (Right upper quadrant) and tenderness (Right upper quadrant and epigastric tenderness) Additional comments: Pain is around operative port sites Extremities Exam Extremities exam: Present normal inspection and neurovascular intact Back Exam Additional comments: Unable to evaluate gait and stance Neurological Exam Neurological exam: Present abnormal gait and altered; Absent alert or oriented X3 Psychiatric Psychiatric exam: Present agitated and anxious Skin Skin exam: Present normal color A/P Assessment and plan (1) Acute acalculous cholecystitis: Status: Acute (2) Alcohol withdrawal syndrome, with delirium: Status: Acute (3) History of alcohol abuse: Status: Acute (4) ROSANNE (acute kidney injury): Status: Acute Plan Patient continues to improve We will check CBC and LFTs in the morning Time Spent With Patient Time: Total time spent is greater than 50% in coordination of care (as documented) at patient's floor/unit and/or counseling patient:
[2022-08-24] MEDS: HYDROcodone/APAP 5/325MG TABLET PO PRN ×4 (00:13→21:06)
[2022-08-24] MEDS: 0.9 % SODIUM CHLORIDE 10 ML SYRINGE IV SCH ×3 (05:51→21:06)
[2022-08-24] MEDS: metroNIDAZOLE 500 MG/100 ML BAG IV SCH ×3 (05:52→22:40)
[2022-08-24 06:41] LABS: Basophils # (Auto) 0.08 K/mcL (0.00-0.30); Basophils % (Auto) 0.5 % (0.0-2.0); Eosinophils # (Auto) 0.41 K/mcL (0.00-0.70); Eosinophils % (Auto) 2.7 % (0.0-7.0); Hematocrit 26.9 % (40.1-51.0); Hemoglobin 8.7 g/dL (13.7-17.5); Mean Cell Volume 97.1 fL (80.0-100.0); Mean Corpuscular HGB Conc 32.3 g/dL (31.0-36.0); Mean Platelet Volume 11.2 fL (8.8-12.5); Monocytes % (Auto) 5.3 % (1.0-12.0); Neutrophils % (Auto) 81.4 % (38.0-78.0); Platelet Count 398 K/mcL (140-440); RBC 2.77 M/mcL (4.63-6.08); Red Cell Distribution Width 14.6 % (11.5-14.5)
[2022-08-24 07:28] LABS: ALT/SGPT 36 U/L (<40); AST/SGOT 24 U/L (<40); Albumin 2.4 gm/dL (3.2-5.2); Albumin/Globulin Ratio 0.7 (1.0-2.3); Alkaline Phosphatase 408 U/L (39-117); Bilirubin,Direct 0.3 mg/dL (<0.3); Bilirubin,Total 0.6 mg/dL (0.1-1.0); Blood Urea Nitrogen 19 mg/dL (6-20); Calcium 8.8 mg/dL (8.6-10.4); Carbon Dioxide 25 mmol/L (22-30); Chloride 108 mmol/L (96-108); Globulin 3.3 gm/dL (2.2-3.7); Glomerular Filtration Rate 65; Glucose 98 mg/dL (70-105); Lactate Dehydrogenase 134 U/L (135-225); Phosphorous 3.2 mg/dL (2.5-4.5); Triglycerides 123 mg/dL (<150); Uric Acid 4.1 mg/dL (2.5-8.0)
[2022-08-24] MEDS: ENOXAPARIN 40 MG/0.4 ML SYRINGE SQ SCH (08:19)
[2022-08-24] MEDS: MULTIVIT,THER IRON,CA,FA & MIN 1 TABLET PO SCH (08:20)
[2022-08-24] MEDS: FOLIC ACID 1 MG TABLET PO SCH (08:20)
[2022-08-24] MEDS: NICOTINE 21 MG PATCH TOPICAL SCH (10:23)
--- NOTE | 2022-08-24 11:00 | Internal Med Progress Note ---
SUBJECTIVE Subjective Patient information: Note initiated : 08/24/22 at 10:57 am Service Date, if different from initiated Date: [] Patient: Artemio Quintana a 47 y/o M admitted on 08/17/22 for kidney pain/ ROSANNE & bacterimia. Chief Complaint: [] Principal diagnosis: Cholecystitis Additional PMFSH (Level 3 Only): Mr. Quintana is a 47 year old M Presents to the ED with Remaining: for bacteremia. Patient was recently seen the other day for flank pain found to have a pyelonephritis and started on antibiotics but patient left AMA. patient complains of headache fever chills lightheadedness nausea vomiting, right flank pain. Blood cultures are gram- negative bacillus. Work-up in the ED with mild tachycardia. Leukocytosis improving but sodium is down a bit. Creatinine is improved but still quite elevated 2.6. BUN 51. Proc alcitonin elevated CT of the abdomen pelvis was with findings distant pyelonephritis bilaterally. Patient has symptoms worse on the right. 08/18 Patient resting in bed. Tired poor sleep. Has continued flank pain but says it is slowly improving. Feels weak and fatigued. Anemia with a hemoglobin 9.6 today likely delusional, no gross bleeding. Sodium level improved. Metabolic acidosis noted. Creatinine minimally improved from yesterday afternoon. Continue IVF. Urine output has not been recorded. bilirubin elevated to have do not have a previous 1 to compare to. Minimal transaminitis. Procalcitonin gradually improving. patient refusing to drink beer offered to him with lunch and dinner even though he says he gets withdrawal when he does not drink alcohol. Patient developing severe alcohol withdrawal with tachycardia tachypnea and febrile hypertension, confusion. delirium tremens CIWA scores been elevating up to 17, IV ativan given and will transfer to icu. examined at bedside, pt restless, tremors, confusion. f/u vitals closely. 08/19 Patient altered and also sedated from withdrawal treatment. Severe withdrawal and DTs. leukocytosis with bandemia now present. repeat ct r/o abscess. d5ns today,. mild transaminitis. >>> CT a/p showing evidence of acute cholecystitis, also as previously mentioned transaminitis developed. Gallbladder ultrasound confirmed. Added IV Flagyl to cefepime. Patient seen by Dr. Munoz who plans for surgery on Wednesday. 08/20 Patient CIWA this morning 15. Patient more coherent although still altered and not at baseline, but able to carry a conversation. Leukocytosis improving. Continue on Rocephin and Flagyl for acute acalculous cholecystitis also finishing treatment for pyelonephritis. Repeat blood cultures negative. Creatinine slightly improved from yesterday, but still elevated. Unknown baseline last creatinine from 2019 was normal. 08/21 Patient requiring less needed benzodiazepines. Mentation better today. Patient sodium mildly elevated 147 today we will start on hypotonic IV solution and follow-up sodium level. Patient undergo cholecystectomy. Patient does admit abdominal pain nausea Laura participate morning conversation with him. Does have some occasional nausea and headache. 08/22 Patient still feels groggy and out of it but seems to be be doing better. Vital signs with mild tachycardia. Did not require IV Ativan last night. Had cholecystectomy yesterday. Leukocytosis today. Manual differential pending. Did have diarrhea yesterday but no stools today. Fecal WBCs negative. Patient does complain of headache and occasional cough. Transaminitis again noted and monitor. 08/23 Patient seems to be feeling a bit better today. Still quite weak. But more alert. Leukocytosis persistent today. Afebrile. Does not appear toxic does not have any new complaints. No bandemia on yesterday's labs. Creatinine 1.3 today from 1.4 yesterday. Patient severely deconditioned and weak and may need rehab. No diarrhea today. Monitor CBC and if continues to persist consider repeat CT. 08/24 Reports no nausea or vomiting. Reports pain at the site of surgery which is same or slightly improved but not worse. Repeat blood cultures negative. Stool C. difficile and toxin negative. Fecal leukocyte stain also negative. Still has leukocytosis of 15,000 change, hemoglobin 8.7. Serum creatinine 1.3 unchanged from yesterday. LFTs improving Review of Systems: Pertinent positives as above. Denies chest pain/cough/dyspnea. PHYSICAL EXAM General: awake, No acute Distress Eyes/N/T: EOMI, no scleral icterus, Head/Neck: neck supple, full ROM, CV: RRR, No murmurs, Pulm: Clear b/l, no wheezing/rhonchi/rales, no respiratory distress Abd: soft, RUQ tender, no rebound or rigidity +BS x4 Ext: no clubbing/cyanosis/edema, nontender Neuro: Alert and oriented, no focal deficits Psychiatric: Appropriate mood and affect Skin: warm/dry, normal color A: *Alcohol w/d severe, Delirium Tremens: improving. Low CIWA score *Acute acalculous cholecystitis: s/p lap bismark (08/21). Slowly improving postsurgically *Pyelonephritis(E.coli) b/l: -no obstruction on imaging *Bacteremia(E.coli): 2/2 above *Sepsis, severe: pct improving -leukocytosis persistent, no bandemia, afebrile *ROSANNE, suspected ATN(unknown baseline) suspect CKD II: 2/2 above -slowly improving *Met acidosis: improving *Atelectasis: *Volume depletion: improved *Anemia: suspect dilutional, monitor *Hyponatremia now resolved *Alcohol use disorder: *Transaminitis/Hyperbilirubina: 2/2 above,improving *Tobacco abuse: *Chronic pain and neuropathy: *Diarrhea since admission: tool C. difficile and toxin negative. Fecal leukocyte stain also negative. Improving on Imodium *Generalized weakness/deconditioning: PT OT P: -monitor cbc, consider repeat CT a/p if worsening -ciwa, vitamins/mineral, prn dawit -monitor vitals and rhythm closely -cefepime/flagyl, duration abx 10-14 days -Monitor renal function/UOP -Monitor trend electrolytes and replace as needed -monitor H&H, transfuse for <7 -IS -monitor lft's -smoking cessation counseling -pt/ot -CM for placement needs, patient with generalized weakness, continue PT OT, will likely need SNF -ppx: Lovenox Time spent > 50 min Constitutional Vitals: Vital Signs Temp Pulse Resp BP Pulse Ox O2 Del Method O2 Flow Rate 98.1 F 88 20 114/78 98 Room Air 4 08/24/22 08:00 08/24/22 08:00 08/24/22 08:00 08/24/22 08:00 08/24/22 08:00 08/24/22 08:00 08/21/22 10:45 Period Temp Pulse Resp BP Sys/Barney Pulse Ox O2 Del Method O2 Flow Rate Last 24 Hr 98.1 F-99.2 F 82-92 14-21 104-114/70-79 98-100 Room Air-Room Air Intake and Output 08/23/22 08/24/22 08/24/22 19:59 03:59 11:59 Intake Total 250 100 700 Output Total 625 Balance 250 100 75 Weight 62.142 kg Intake & Output: Intake & Output 08/23/22 08/24/22 08/24/22 19:59 03:59 11:59 Intake Total 250 100 700 Output Total 625 Balance 250 100 75 Weight 62.142 kg Intake: IV 150 100 100 Rocephin 2 gm In Dextrose 5% in 50 Water 50 ml @ 100 mls/hr IV Q24H [facility] Rx#:[id number] Oral 100 600 Output: Void Amount 625 Other: Meal Dinner Breakfast Percent of Meal Consumed 25% 75% Feeding Ability Independent Urine Appearance Clear Urine Color Yellow Urine Odor Normal Stool Size Moderate Stool Color Brown Stool Consistency Liquid Loose # Voids 1 # Bowel Movements 1 OBJ DATA Labs 08/24/22 05:36 08/24/22 05:36 Labs: Abnormal Lab Results 08/24/22 08/24/22 08/23/22 05:36 05:36 05:31 WBC 15.0 H RBC 2.77 L Hgb 8.7 L Hct 26.9 L POC Hct MCV MCHC RDW 14.6 H Immature Gran % (Auto) 2.1 H Neut % (Auto) 81.4 H Lymph % (Auto) 8.0 L Lymph # (Auto) 1.20 L Seg Neutrophils % Lymphocytes % Immature Gran # 0.31 H Absolute Neutrophils 12.19 H RBC Morphology Anisocytosis POC Sodium Sodium POC Chloride Chloride 110 H Carbon Dioxide POC Total CO2 Anion Gap 7.0 L POC Anion Gap POC BUN BUN Creatinine 1.3 H 1.3 H POC Creatinine Glucose POC Glucose Calcium Total Bilirubin Direct Bilirubin 0.3 H 0.4 H GGT 351 H 412 H AST ALT 44 H Alkaline Phosphatase 408 H 494 H Lactate Dehydrogenase 134 L 123 L Total Protein 5.7 L 5.3 L Albumin 2.4 L 2.0 L Albumin/Globulin Ratio 0.7 L 0.6 L 08/23/22 08/22/22 08/22/22 05:31 05:29 05:29 WBC 15.8 H RBC 2.58 L Hgb 8.2 L Hct 25.4 L POC Hct MCV MCHC RDW 15.0 H Immature Gran % (Auto) 1.7 H Neut % (Auto) 85.0 H Lymph % (Auto) 5.9 L Lymph # (Auto) 0.93 L Seg Neutrophils % 89 H Lymphocytes % 7 L Immature Gran # 0.27 H Absolute Neutrophils 13.44 H RBC Morphology Abnormal A Anisocytosis 1+ A POC Sodium Sodium POC Chloride Chloride 113 H Carbon Dioxide 19 L POC Total CO2 Anion Gap POC Anion Gap POC BUN BUN 24 H Creatinine 1.4 H POC Creatinine Glucose POC Glucose Calcium 8.5 L Total Bilirubin 1.4 H Direct Bilirubin 1.0 H GGT 602 H AST 104 H ALT 67 H Alkaline Phosphatase 675 H Lactate Dehydrogenase 239 H Total Protein 5.5 L Albumin 2.1 L Albumin/Globulin Ratio 0.6 L 08/22/22 08/21/22 08/21/22 05:29 17:23 17:20 WBC 15.3 H RBC 2.79 L Hgb 8.9 L Hct 29.3 L POC Hct 27.0 L MCV 105.0 H MCHC 30.4 L RDW 16.0 H Immature Gran % (Auto) 1.3 H Neut % (Auto) 86.5 H Lymph % (Auto) 5.8 L Lymph # (Auto) 0.89 L Seg Neutrophils % Lymphocytes % Immature Gran # 0.20 H Absolute Neutrophils 13.21 H RBC Morphology Anisocytosis POC Sodium 147 H Sodium POC Chloride 114 H Chloride 114 H Carbon Dioxide POC Total CO2 20.0 L Anion Gap POC Anion Gap 17.0 H POC BUN 29 H BUN 31 H Creatinine 1.5 H POC Creatinine 1.5 H Glucose 127 H POC Glucose 123 H Calcium Total Bilirubin Direct Bilirubin GGT AST ALT Alkaline Phosphatase Lactate Dehydrogenase Total Protein Albumin Albumin/Globulin Ratio 08/21/22 10:58 WBC RBC Hgb Hct POC Hct MCV MCHC RDW Immature Gran % (Auto) Neut % (Auto) Lymph % (Auto) Lymph # (Auto) Seg Neutrophils % Lymphocytes % Immature Gran # Absolute Neutrophils RBC Morphology Anisocytosis POC Sodium Sodium 147 H POC Chloride Chloride 117 H Carbon Dioxide 19 L POC Total CO2 Anion Gap POC Anion Gap POC BUN BUN 31 H Creatinine 1.5 H POC Creatinine Glucose 111 H POC Glucose Calcium 8.4 L Total Bilirubin Direct Bilirubin GGT AST ALT Alkaline Phosphatase 216 H Lactate Dehydrogenase Total Protein 5.4 L Albumin 2.1 L Albumin/Globulin Ratio 0.6 L Meds: Medications Acetaminophen (Acetaminophen 325 Mg Tablet) 650 mg PO Q6HP PRN; Protocol PRN Reason: Per Pain Protocol/Fever > 101 Last Admin: 08/22/22 09:16 Dose: 650 mg Hydrocodone Bitart/Acetaminophen (Hydrocodone/Apap 5/325mg Tablet) 1 tab PO Q4HP PRN PRN Reason: PAIN LEVEL 3-6 Last Admin: 08/24/22 08:20 Dose: 1 tab Albuterol/Ipratropium (Ipratropium/Albuterol 3 Ml Ampul.Neb) 3 ml NEB Q4HP PRN PRN Reason: Shortness Of Breath Chlordiazepoxide HCl (Chlordiazepoxide 25 Mg Capsule) 50 mg PO UD PRN; Protocol PRN Reason: Alcohol Withdrawal/Assess CIWA Last Admin: 08/20/22 20:35 Dose: 50 mg Clonidine HCl (Clonidine Hcl 0.1 Mg Tablet) 0.1 mg PO Q4HP PRN PRN Reason: ALC Last Admin: 08/20/22 09:06 Dose: 0.1 mg Enoxaparin Sodium (Enoxaparin 40 Mg/0.4 Ml Syringe) 40 mg SQ DAILY JERSON Last Admin: 08/24/22 08:19 Dose: 40 mg Folic Acid (Folic Acid 1 Mg Tablet) 1 mg PO DAILY JERSON Last Admin: 08/24/22 08:20 Dose: 1 mg Haloperidol Lactate (Haloperidol Lactate 5 Mg/Ml Vial) 0.5 mg IM Q2HP PRN PRN Reason: Alcohol Withdrawal/Assess CIWA Potassium Chloride 40 meq/ (Dextrose) 520 mls @ 130 mls/hr IV UD PRN PRN Reason: Potassium < 3 Magnesium Sulfate (Magnesium Sulfate) 2 gm in 50 mls @ 50 mls/hr IV UD PRN PRN Reason: Magnesium </= 1.6 Metronidazole (Flagyl) 500 mg in 100 mls @ 100 mls/hr IV Q8H JERSON; Protocol Last Infusion: 08/24/22 06:47 Dose: Infused Ceftriaxone Sodium 2 gm/ (Dextrose) 50 mls @ 100 mls/hr IV Q24H [facility]ERSON; Protocol Last Infusion: 08/23/22 14:16 Dose: Infused Iron Carb/Multivit/Operations Trainer/Folic Acid (Multivit,Ther Iron,Ca,Fa & Min 1 Tablet) 1 tab PO DAILY JERSON Last Admin: 08/24/22 08:20 Dose: 1 tab Loperamide HCl (Loperamide 2 Mg Capsule) 2 mg PO PRN PRN PRN Reason: Diarrhea Lorazepam (Lorazepam 2 Mg/Ml Vial) 0 mg IV UD PRN; Protocol PRN Reason: Alcohol Withdrawal/Assess CIWA Last Admin: 08/21/22 01:47 Dose: 2 mg Morphine Sulfate (Morphine 4 Mg/Ml Vial) 0 mg IV Q3HP PRN PRN Reason: Pain Last Admin: 08/22/22 01:03 Dose: 3 mg Nicotine (Nicotine 21 Mg Patch) 21 mg TOPICAL DAILY@1000 JERSON Last Admin: 08/24/22 10:23 Dose: 21 mg Ondansetron HCl (Ondansetron 4 Mg/2 Ml Vial) 4 mg IV Q4HP PRN PRN Reason: Nausea And Vomiting Last Admin: 08/20/22 01:12 Dose: 4 mg Polyethylene Glycol (Polyethylene Glycol 3350 17 Gm Packet) 17 gm PO DAILYP PRN PRN Reason: Constipation Potassium Chloride (Potassium Chloride 20 Meq Tablet) 40 meq PO UD PRN PRN Reason: Potssium is 3-3.5 Last Admin: 08/20/22 09:07 Dose: 40 meq Potassium Chloride (Potassium Chloride 20 Meq Tablet) 40 meq PO UD PRN PRN Reason: Potassium < 3 Promethazine HCl (Promethazine 25 Mg/Ml Vial) 12.5 mg IV Q6HP PRN PRN Reason: Nausea And Vomiting Senna (Sennosides 1 Tablet) 2 tab PO DAILYP PRN PRN Reason: Constipation Sodium Chloride (0.9 % Sodium Chloride 10 Ml Syringe) 10 ml IV Q8 [facility] Last Admin: 08/24/22 05:51 Dose: 10 ml A/P Time Spent With Patient Time: Total time spent is greater than 50% in coordination of care (as documented) at patient's floor/unit and/or counseling patient: QUALITY Stroke Symptom Onset Unknown: No VTE Deep Vein Thrombosis/Pulmonary Embolism Present on Admission: No
[2022-08-24] MEDS: cefTRIAXone 2 GM in DEXTROSE 5% IN WATER 50 ML IV SCH (11:40)
--- NOTE | 2022-08-24 17:14 | General Surgery Progress Note ---
SUBJECTIVE Subjective Patient information: Note initiated : 08/24/22 at 5:11 pm Service Date, if different from initiated Date: [] Patient: Artemio Quintana 47 y/o M admitted on 08/17/22 for kidney pain/ ROSANNE & bacterimia. Chief Complaint: [] Principal diagnosis: Cholecystitis Interval history: Patient is stable and improved. His appetite is improved and he is tolerating more regular diet. He has no nausea or vomiting. His pain is improved. He is afebrile. LFTs are steadily improving. Constitutional Vitals: Vital Signs Temp Pulse Resp BP Pulse Ox O2 Del Method O2 Flow Rate 98.9 F 87 16 114/77 100 Room Air 4 08/24/22 16:00 08/24/22 16:00 08/24/22 16:00 08/24/22 16:00 08/24/22 16:00 08/24/22 16:00 08/21/22 10:45 Period Temp Pulse Resp BP Sys/Barney Pulse Ox O2 Del Method O2 Flow Rate Last 24 Hr 98.1 F-99.2 F 82-92 16-20 104-114/72-79 98-100 Room Air-Room Air Intake and Output 08/24/22 08/24/22 08/24/22 03:59 11:59 19:59 Intake Total 100 700 150 Output Total 625 Balance 100 75 150 Weight 137 lb 137 lb Patient Weight 08/25/22 03:59 Weight 137 lb Intake & Output: Intake & Output 08/24/22 08/24/22 08/24/22 03:59 11:59 19:59 Intake Total 100 700 150 Output Total 625 Balance 100 75 150 Weight 137 lb 137 lb Intake: IV 100 100 150 Rocephin 2 gm In Dextrose 5% in 50 Water 50 ml @ 100 mls/hr IV Q24H [facility] Rx#:[id number] Oral 600 Output: Void Amount 625 Other: Meal Dinner Breakfast Percent of Meal Consumed 25% 75% Feeding Ability Independent Urine Appearance Clear Urine Color Yellow Urine Odor Normal Stool Size Moderate Stool Color Brown Stool Consistency Liquid Loose # Voids 1 1 # Bowel Movements 1 General appearance: mild distress and thin Eye Eye exam: Present normal appearance and PERRL; Absent scleral icterus ENT ENT exam: Present mucous membranes moist and normal oropharynx Neck Neck exam: Present full ROM and normal inspection; Absent lymphadenopathy or tenderness Respiratory Respiratory exam: Present normal respiratory exam and CTAB; Absent rales Cardiovascular Cardiovascular exam: Present RRR, +S1, +S2 and tachycardia (Heart rate 120); Absent JVD GI/Abdominal GI/Abdominal exam: Present normal bowel sounds, distended, guarding (Right upper quadrant) and tenderness (Right upper quadrant and epigastric tenderness) Additional comments: Pain is around operative port sites Extremities Exam Extremities exam: Present normal inspection and neurovascular intact Back Exam Additional comments: Unable to evaluate gait and stance Neurological Exam Neurological exam: Present abnormal gait and altered; Absent alert or oriented X3 Psychiatric Psychiatric exam: Present agitated and anxious Skin Skin exam: Present normal color A/P Assessment and plan (1) Acute acalculous cholecystitis: Status: Acute (2) Alcohol withdrawal syndrome, with delirium: Status: Acute (3) History of alcohol abuse: Status: Acute (4) Bacteremia due to Gram-negative bacteria: Status: Acute Plan Patient is clinically stable and can be discharged from a surgical standpoint whenever he is adequately recovered from his sepsis. Time Spent With Patient Time: Total time spent is greater than 50% in coordination of care (as documented) at patient's floor/unit and/or counseling patient:
[2022-08-24] MEDS: ONDANSETRON 4 MG/2 ML VIAL IV PRN (19:03)
[2022-08-24] MEDS ORDERED: MELATONIN 3 MG TABLET PO PRN ×2 (23:40→23:53)
[2022-08-24] MEDS ORDERED: MELATONIN 3 MG TABLET PO ONE (23:49)
[2022-08-25] MEDS: 0.9 % SODIUM CHLORIDE 10 ML SYRINGE IV SCH ×2 (05:57→14:04)
[2022-08-25] MEDS: metroNIDAZOLE 500 MG/100 ML BAG IV SCH ×2 (05:57→14:03)
[2022-08-25] MEDS: HYDROcodone/APAP 5/325MG TABLET PO PRN ×2 (07:51→12:15)
[2022-08-25 08:38] LABS: Basophils # (Auto) 0.05 K/mcL (0.00-0.30); Basophils % (Auto) 0.5 % (0.0-2.0); Eosinophils # (Auto) 0.19 K/mcL (0.00-0.70); Eosinophils % (Auto) 1.8 % (0.0-7.0); Hematocrit 27.8 % (40.1-51.0); Hemoglobin 8.9 g/dL (13.7-17.5); Lymphocytes # (Auto) 0.79 K/mcL (1.50-4.80); Lymphocytes % (Auto) 7.7 % (15.5-49.0); Mean Cell Volume 100.7 fL (80.0-100.0); Mean Platelet Volume 11.3 fL (8.8-12.5); Monocytes % (Auto) 4.9 % (1.0-12.0); Neutrophils % (Auto) 83.4 % (38.0-78.0); Platelet Count 312 K/mcL (140-440); RBC 2.76 M/mcL (4.63-6.08); Red Cell Distribution Width 14.9 % (11.5-14.5); WBC 10.3 K/mcL (4.5-11.0)
[2022-08-25] MEDS: FOLIC ACID 1 MG TABLET PO SCH (09:07)
[2022-08-25] MEDS: ENOXAPARIN 40 MG/0.4 ML SYRINGE SQ SCH (09:07)
[2022-08-25] MEDS: MULTIVIT,THER IRON,CA,FA & MIN 1 TABLET PO SCH (09:07)
[2022-08-25 09:13] LABS: ALT/SGPT 29 U/L (<40); AST/SGOT 26 U/L (<40); Albumin 2.5 gm/dL (3.2-5.2); Albumin/Globulin Ratio 0.8 (1.0-2.3); Alkaline Phosphatase 322 U/L (39-117); Bilirubin,Total 0.5 mg/dL (0.1-1.0); Blood Urea Nitrogen 12 mg/dL (6-20); Calcium 8.4 mg/dL (8.6-10.4); Carbon Dioxide 26 mmol/L (22-30); Chloride 107 mmol/L (96-108); Globulin 3.1 gm/dL (2.2-3.7); Glomerular Filtration Rate 72; Glucose 119 mg/dL (70-105)
[2022-08-25] MEDS: NICOTINE 21 MG PATCH TOPICAL SCH (10:01)
[2022-08-25] MEDS: cefTRIAXone 2 GM in DEXTROSE 5% IN WATER 50 ML IV SCH (12:12)
--- NOTE | 2022-08-25 13:36 | General Surgery Progress Note ---
SUBJECTIVE Subjective Patient information: Note initiated : 08/25/22 at 1:29 pm Service Date, if different from initiated Date: [] Patient: Artemio Quintana 47 y/o M admitted on 08/17/22 for kidney pain/ ROSANNE & bacterimia. Chief Complaint: [] Principal diagnosis: Cholecystitis Interval history: Patient continues to do well. He is alert. He is tolerating diet without difficulty. White blood count is 10.3. Hemoglobin is stable at 8.9. Potassium BUN and creatinine are normal. Patient is clinically stable from a surgical standpoint and can be discharged at the discretion of the hospitalist Constitutional Vitals: Vital Signs Temp Pulse Resp BP Pulse Ox O2 Del Method O2 Flow Rate 98.5 F 95 H 18 94/66 100 Room Air 4 08/25/22 12:00 08/25/22 12:00 08/25/22 12:00 08/25/22 12:00 08/25/22 12:00 08/25/22 12:00 08/21/22 10:45 Period Temp Pulse Resp BP Sys/Barney Pulse Ox O2 Del Method O2 Flow Rate Last 24 Hr 98.0 F-99.4 F 81-100 14-18 94-115/60-83 94-100 Room Air-Room Air Intake and Output 08/25/22 08/25/22 08/25/22 03:59 11:59 19:59 Intake Total 320 340 530 Output Total 0 525 400 Balance 320 -185 130 Intake & Output: Intake & Output 08/25/22 08/25/22 08/25/22 03:59 11:59 19:59 Intake Total 320 340 530 Output Total 0 525 400 Balance 320 -185 130 Intake: IV 100 100 50 Rocephin 2 gm In Dextrose 5% in 50 Water 50 ml @ 100 mls/hr IV Q24H [facility] Rx#:[id number] Oral 220 240 480 Output: Void Amount 0 525 400 # of times incontinent of urine 0 Other: Meal Breakfast Lunch Percent of Meal Consumed 50% 80 Feeding Ability Independent Independent Urine Appearance Clear Clear Urine Color Yellow Yellow # Voids 0 General appearance: mild distress and thin Eye Eye exam: Present normal appearance and PERRL; Absent scleral icterus ENT ENT exam: Present mucous membranes moist and normal oropharynx Neck Neck exam: Present full ROM and normal inspection; Absent lymphadenopathy or tenderness Respiratory Respiratory exam: Present normal respiratory exam and CTAB; Absent rales Cardiovascular Cardiovascular exam: Present RRR, +S1, +S2 and tachycardia (Heart rate 120); Absent JVD GI/Abdominal GI/Abdominal exam: Present normal bowel sounds, distended, guarding (Right upper quadrant) and tenderness (Right upper quadrant and epigastric tenderness) Additional comments: Pain is around operative port sites Extremities Exam Extremities exam: Present normal inspection and neurovascular intact Back Exam Additional comments: Unable to evaluate gait and stance Neurological Exam Neurological exam: Present abnormal gait and altered; Absent alert or oriented X3 Psychiatric Psychiatric exam: Present agitated and anxious Skin Skin exam: Present normal color A/P Assessment and plan (1) Acute acalculous cholecystitis: Status: Acute (2) Alcohol withdrawal syndrome, with delirium: Status: Acute (3) History of alcohol abuse: Status: Acute (4) Bacteremia due to Gram-negative bacteria: Status: Acute Plan Patient is clinically recovered from gallbladder surgery. When discharged he is to follow-up in the office in 2 weeks for suture removal. Time Spent With Patient Time: Total time spent is greater than 50% in coordination of care (as documented) at patient's floor/unit and/or counseling patient:
--- NOTE | 2022-08-25 14:48 | Internal Med Progress Note ---
SUBJECTIVE Subjective Patient information: Note initiated : 08/25/22 at 2:44 pm Service Date, if different from initiated Date: [] Patient: Artemio Quintana a 47 y/o M admitted on 08/17/22 for kidney pain/ ROSANNE & bacterimia. Chief Complaint: [] Principal diagnosis: Cholecystitis Additional PMFSH (Level 3 Only): Mr. Quintana is a 47 year old M who presentsed to the ED with Remaining: for bacteremia. Patient was recently seen the other day for flank pain found to have a pyelonephritis and started on antibiotics but patient left AMA. Patient presented with right flank pain, nausea and vomiting, fever, chills, headache, lightheadedness and was found to have gram-negative bacteremia. Patient was in sepsis on admission with tachycardia, leukocytosis and CT of the abdomen and pelvis showing findings concerning for pyelonephritis. Patient also had acute kidney injury with serum creatinine of 2.6 with elevated procalcitonin. 08/18 Patient resting in bed. Tired poor sleep. Has continued flank pain but says it is slowly improving. Feels weak and fatigued. Anemia with a hemoglobin 9.6 today likely delusional, no gross bleeding. Sodium level improved. Metabolic acidosis noted. Creatinine minimally improved from yesterday afternoon. Continue IVF. Urine output has not been recorded. bilirubin elevated to have do not have a previous 1 to compare to. Minimal transaminitis. Procalcitonin gradually improving. patient refusing to drink beer offered to him with lunch and dinner even though he says he gets withdrawal when he does not drink alcohol. Patient developing severe alcohol withdrawal with tachycardia tachypnea and febrile hypertension, confusion. delirium tremens CIWA scores been elevating up to 17, IV ativan given and will transfer to icu. examined at bedside, pt restless, tremors, confusion. F/u vitals closely. 08/19 Patient altered and also sedated from withdrawal treatment. Severe withdrawal and DTs. leukocytosis with bandemia now present. repeat ct r/o abscess. d5ns today,. mild transaminitis. >>> CT a/p showing evidence of acute cholecystitis, also as previously mentioned transaminitis developed. Gallbladder ultrasound confirmed. Added IV Flagyl to cefepime. Patient seen by Dr. Munoz who plans for surgery on Wednesday. 08/20 Patient CIWA this morning 15. Patient more coherent although still altered and not at baseline, but able to carry a conversation. Leukocytosis improving. Continue on Rocephin and Flagyl for acute acalculous cholecystitis also finishing treatment for pyelonephritis. Repeat blood cultures negative. Creatinine slightly improved from yesterday, but still elevated. Unknown baseline last creatinine from 2019 was normal. 08/21 Patient requiring less needed benzodiazepines. Mentation better today. Patient sodium mildly elevated 147 today we will start on hypotonic IV solution and follow-up sodium level. Patient undergo cholecystectomy. Patient does admit abdominal pain nausea Laura participate morning conversation with him. Does have some occasional nausea and headache. 08/22 Patient still feels groggy and out of it but seems to be be doing better. Vital signs with mild tachycardia. Did not require IV Ativan last night. Had cholecystectomy yesterday. Leukocytosis today. Manual differential pending. Did have diarrhea yesterday but no stools today. Fecal WBCs negative. Patient does complain of headache and occasional cough. Transaminitis again noted and monitor. 08/23 Patient seems to be feeling a bit better today. Still quite weak. But more alert. Leukocytosis persistent today. Afebrile. Does not appear toxic does not have any new complaints. No bandemia on yesterday's labs. Creatinine 1.3 today from 1.4 yesterday. Patient severely deconditioned and weak and may need rehab. No diarrhea today. Monitor CBC and if continues to persist consider repeat CT. 08/24 Reports no nausea or vomiting. Reports pain at the site of surgery which is same or slightly improved but not worse. Repeat blood cultures negative. Stool C. difficile and toxin negative. Fecal leukocyte stain also negative. Still has leukocytosis of 15,000 change, hemoglobin 8.7. Serum creatinine 1.3 unchanged from yesterday. LFTs improving 08/25. Patient reports he still has right sided abdominal pain mainly at the surgical site. He is tolerating diet without difficulty. White blood count is 10.3. Hemoglobin is stable at 8.9. Potassium BUN and creatinine are normal. PT reported patient is unstable on his feet however patient has been insisting he would like to go home. Review of Systems: Pertinent positives as above. Denies chest pain/cough/dyspnea. PHYSICAL EXAM General: awake, No acute Distress Eyes/N/T: EOMI, no scleral icterus, Head/Neck: neck supple, full ROM, CV: RRR, No murmurs, Pulm: Clear b/l, no wheezing/rhonchi/rales, no respiratory distress Abd: soft, RUQ tender, no rebound or rigidity +BS x4 Ext: no clubbing/cyanosis/edema, nontender Neuro: Alert and oriented, no focal deficits Psychiatric: Appropriate mood and affect Skin: warm/dry, normal color Assessment: *Acute acalculous cholecystitis: s/p lap cholecystectomy (08/21).Improving postsurgically *Pyelonephritis(E.coli) b/l: -no obstruction on imaging *Ecoli bacteremia: 2/2 above *Sepsis, severe: pct trended down -leucocytosis resolved, afebrile *ROSANNE,suspected ATN(unknown baseline) suspect CKD II: 2/2 above -Cr improved to 1.2 from 2.3, improving *Met acidosis: improving *Alcohol withdrawal severe, Delirium Tremens: improving. Low CIWA score *Atelectasis: *Volume depletion: improved *Anemia: suspect dilutional, monitor *Hyponatremia now resolved *Alcohol use disorder:S/p CIWA, vitamins/mineral. Counselled on alcohol cessation. *Transaminitis/Hyperbilirubinemia: 2/2 above,improving *Tobacco abuse: counselled on cessation *Chronic pain and neuropathy: *Diarrhea since admission: tool C. difficile and toxin negative. Fecal leukocyte stain also negative. Improving on Imodium *Generalized weakness/deconditioning: PT OT. Pt is improving and getting close to baseline and refusing SNF. Plan: -monitor vitals and rhythm closely -cefepime/flagyl, duration abx 10-14 days -Monitor renal function/UOP -Monitor trend electrolytes and replace as needed -monitor H&H, transfuse for <7 -IS -monitor lft's -pt/ot -CM for placement needs, patient with generalized weakness, continue PT OT, will likely need SNF -ppx: Lovenox Time spent > 50 min Constitutional Vitals: Vital Signs Temp Pulse Resp BP Pulse Ox O2 Del Method O2 Flow Rate 98.5 F 95 H 18 94/66 100 Room Air 4 08/25/22 12:00 08/25/22 12:00 08/25/22 12:08/25/22 12:00 08/25/22 12:00 08/25/22 12:00 08/21/22 10:45 Period Temp Pulse Resp BP Sys/Barney Pulse Ox O2 Del Method O2 Flow Rate Last 24 Hr 98.0 F-99.4 F 81-100 14-18 94-115/60-83 94-100 Room Air-Room Air Intake and Output 08/25/22 08/25/22 08/25/22 03:59 11:59 19:59 Intake Total 320 340 530 Output Total 0 525 400 Balance 320 -185 130 Intake & Output: Intake & Output 08/25/22 08/25/22 08/25/22 03:59 11:59 19:59 Intake Total 320 340 530 Output Total 0 525 400 Balance 320 -185 130 Intake: IV 100 100 50 Rocephin 2 gm In Dextrose 5% in 50 Water 50 ml @ 100 mls/hr IV Q24H [facility] Rx#:[id number] Oral 220 240 480 Output: Void Amount 0 525 400 # of times incontinent of urine 0 Other: Meal Breakfast Lunch Percent of Meal Consumed 50% 80 Feeding Ability Independent Independent Urine Appearance Clear Clear Urine Color Yellow Yellow # Voids 0 OBJ DATA Labs 08/25/22 08:03 08/25/22 08:03 Labs: Abnormal Lab Results 08/25/22 08/25/22 08/24/22 08:03 08:03 05:36 WBC RBC 2.76 L Hgb 8.9 L Hct 27.8 L MCV 100.7 H RDW 14.9 H Immature Gran % (Auto) 1.7 H Neut % (Auto) 83.4 H Lymph % (Auto) 7.7 L Lymph # (Auto) 0.79 L Immature Gran # 0.17 H Absolute Neutrophils 8.60 H Chloride Anion Gap 6.0 L Creatinine 1.3 H Glucose 119 H Calcium 8.4 L Direct Bilirubin 0.3 H GGT 351 H ALT Alkaline Phosphatase 322 H 408 H Lactate Dehydrogenase 134 L Total Protein 5.6 L 5.7 L Albumin 2.5 L 2.4 L Albumin/Globulin Ratio 0.8 L 0.7 L 08/24/22 08/23/22 08/23/22 05:36 05:31 05:31 WBC 15.0 H 15.8 H RBC 2.77 L 2.58 L Hgb 8.7 L 8.2 L Hct 26.9 L 25.4 L MCV RDW 14.6 H 15.0 H Immature Gran % (Auto) 2.1 H 1.7 H Neut % (Auto) 81.4 H 85.0 H Lymph % (Auto) 8.0 L 5.9 L Lymph # (Auto) 1.20 L 0.93 L Immature Gran # 0.31 H 0.27 H Absolute Neutrophils 12.19 H 13.44 H Chloride 110 H Anion Gap 7.0 L Creatinine 1.3 H Glucose Calcium Direct Bilirubin 0.4 H GGT 412 H ALT 44 H Alkaline Phosphatase 494 H Lactate Dehydrogenase 123 L Total Protein 5.3 L Albumin 2.0 L Albumin/Globulin Ratio 0.6 L Meds: Medications Acetaminophen (Acetaminophen 325 Mg Tablet) 650 mg PO Q6HP PRN; Protocol PRN Reason: Per Pain Protocol/Fever > 101 Last Admin: 08/22/22 09:16 Dose: 650 mg Hydrocodone Bitart/Acetaminophen (Hydrocodone/Apap 5/325mg Tablet) 1 tab PO Q4HP PRN PRN Reason: PAIN LEVEL 3-6 Last Admin: 08/25/22 12:15 Dose: 1 tab Albuterol/Ipratropium (Ipratropium/Albuterol 3 Ml Ampul.Neb) 3 ml NEB Q4HP PRN PRN Reason: Shortness Of Breath Chlordiazepoxide HCl (Chlordiazepoxide 25 Mg Capsule) 50 mg PO UD PRN; Protocol PRN Reason: Alcohol Withdrawal/Assess CIWA Last Admin: 08/20/22 20:35 Dose: 50 mg Clonidine HCl (Clonidine Hcl 0.1 Mg Tablet) 0.1 mg PO Q4HP PRN PRN Reason: ALC Last Admin: 08/20/22 09:06 Dose: 0.1 mg Enoxaparin Sodium (Enoxaparin 40 Mg/0.4 Ml Syringe) 40 mg SQ DAILY JERSON Last Admin: 08/25/22 09:07 Dose: 40 mg Folic Acid (Folic Acid 1 Mg Tablet) 1 mg PO DAILY JERSON Last Admin: 08/25/22 09:07 Dose: 1 mg Haloperidol Lactate (Haloperidol Lactate 5 Mg/Ml Vial) 0.5 mg IM Q2HP PRN PRN Reason: Alcohol Withdrawal/Assess CIWA Potassium Chloride 40 meq/ (Dextrose) 520 mls @ 130 mls/hr IV UD PRN PRN Reason: Potassium < 3 Magnesium Sulfate (Magnesium Sulfate) 2 gm in 50 mls @ 50 mls/hr IV UD PRN PRN Reason: Magnesium </= 1.6 Metronidazole (Flagyl) 500 mg in 100 mls @ 100 mls/hr IV Q8H [facility]; Protocol Last Admin: 08/25/22 14:03 Dose: 100 mls/hr Ceftriaxone Sodium 2 gm/ (Dextrose) 50 mls @ 100 mls/hr IV Q24H JERSON; Protocol Last Infusion: 08/25/22 12:45 Dose: Infused Iron Carb/Multivit/Purchase Analyst/Folic Acid (Multivit,Ther Iron,Ca,Fa & Min 1 Tablet) 1 tab PO DAILY JERSON Last Admin: 08/25/22 09:07 Dose: 1 tab Loperamide HCl (Loperamide 2 Mg Capsule) 2 mg PO PRN PRN PRN Reason: Diarrhea Lorazepam (Lorazepam 2 Mg/Ml Vial) 0 mg IV UD PRN; Protocol PRN Reason: Alcohol Withdrawal/Assess CIWA Last Admin: 08/21/22 01:47 Dose: 2 mg Melatonin (Melatonin 3 Mg Tablet) 6 mg PO HSP PRN PRN Reason: Insomnia Morphine Sulfate (Morphine 4 Mg/Ml Vial) 0 mg IV Q3HP PRN PRN Reason: Pain Last Admin: 08/22/22 01:03 Dose: 3 mg Nicotine (Nicotine 21 Mg Patch) 21 mg TOPICAL DAILY@1000 JERSON Last Admin: 08/25/22 10:01 Dose: Not Given Ondansetron HCl (Ondansetron 4 Mg/2 Ml Vial) 4 mg IV Q4HP PRN PRN Reason: Nausea And Vomiting Last Admin: 08/24/22 19:03 Dose: 4 mg Polyethylene Glycol (Polyethylene Glycol 3350 17 Gm Packet) 17 gm PO DAILYP PRN PRN Reason: Constipation Potassium Chloride (Potassium Chloride 20 Meq Tablet) 40 meq PO UD PRN PRN Reason: Potssium is 3-3.5 Last Admin: 08/20/22 09:07 Dose: 40 meq Potassium Chloride (Potassium Chloride 20 Meq Tablet) 40 meq PO UD PRN PRN Reason: Potassium < 3 Promethazine HCl (Promethazine 25 Mg/Ml Vial) 12.5 mg IV Q6HP PRN PRN Reason: Nausea And Vomiting Senna (Sennosides 1 Tablet) 2 tab PO DAILYP PRN PRN Reason: Constipation Sodium Chloride (0.9 % Sodium Chloride 10 Ml Syringe) 10 ml IV Q8 JERSON Last Admin: 08/25/22 14:04 Dose: 10 ml A/P Time Spent With Patient Time: Total time spent is greater than 50% in coordination of care (as documented) at patient's floor/unit and/or counseling patient: QUALITY Stroke Symptom Onset Unknown: No VTE Deep Vein Thrombosis/Pulmonary Embolism Present on Admission: No
--- NOTE | 2022-08-25 16:09 | Discharge Summary ---
Discharge Provider Provider IMPORTANT FOLLOW-UP INFORMATION FOR PCP: Patient information: Note initiated : 08/25/22 at 4:02 pm Service Date, if different from initiated Date: [] Patient: Artemio Quintana a 47 y/o M admitted on 08/17/22 for kidney pain/ ROSANNE & bacterimia. Chief Complaint: [] Date of admission: 08/17/22 14:07 Discharge date: 08/25/22 Primary care physician: Unknown Unknown Consults: 08/17/22 Consult to Physician [CONS] Stat Comment: Consulting Provider: Kaushik Fu Reason For Exam: Physician to Consult 08/19/22 12:34 Consult to Physician [CONS] Routine Comment: eval for acute cholecystitis Consulting Provider: Alia Munoz Reason For Exam: Physician to Consult COURSE Hospital Course Hospital course: Mr. Quintana is a 47 year old M who presentsed to the ED with Remaining: for bacteremia. Patient was recently seen the other day for flank pain found to have a pyelonephritis and started on antibiotics but patient left AMA. Patient presented with right flank pain, nausea and vomiting, fever, chills, headache, lightheadedness and was found to have gram-negative bacteremia. Patient was in sepsis on admission with tachycardia, leukocytosis and CT of the abdomen and pelvis showing findings concerning for pyelonephritis. Patient also had acute kidney injury with serum creatinine of 2.6 with elevated procalcitonin. 08/18 Patient resting in bed. Tired poor sleep. Has continued flank pain but says it is slowly improving. Feels weak and fatigued. Anemia with a hemoglobin 9.6 today likely delusional, no gross bleeding. Sodium level improved. Metabolic acidosis noted. Creatinine minimally improved from yesterday afternoon. Continue IVF. Urine output has not been recorded. bilirubin elevated to have do not have a previous 1 to compare to. Minimal transaminitis. Procalcitonin gradually improving. patient refusing to drink beer offered to him with lunch and dinner even though he says he gets withdrawal when he does not drink alcohol. Patient developing severe alcohol withdrawal with tachycardia tachypnea and febrile hypertension, confusion. delirium tremens CIWA scores been elevating up to 17, IV ativan given and will transfer to icu. examined at bedside, pt restless, tremors, confusion. F/u vitals closely. 08/19 Patient altered and also sedated from withdrawal treatment. Severe withdrawal and DTs. leukocytosis with bandemia now present. repeat ct r/o abscess. d5ns today,. mild transaminitis. >>> CT a/p showing evidence of acute cholecystitis, also as previously mentioned transaminitis developed. Gallbladder ultrasound confirmed. Added IV Flagyl to cefepime. Patient seen by Dr. Munoz who plans for surgery on Wednesday. 08/20 Patient CIWA this morning 15. Patient more coherent although still altered and not at baseline, but able to carry a conversation. Leukocytosis improving. Continue on Rocephin and Flagyl for acute acalculous cholecystitis also finishing treatment for pyelonephritis. Repeat blood cultures negative. Creatinine slightly improved from yesterday, but still elevated. Unknown baseline last creatinine from 2019 was normal. 08/21 Patient requiring less needed benzodiazepines. Mentation better today. Patient sodium mildly elevated 147 today we will start on hypotonic IV solution and follow-up sodium level. Patient undergo cholecystectomy. Patient does admit ab dominal pain nausea Laura participate morning conversation with him. Does have some occasional nausea and headache. 08/22 Patient still feels groggy and out of it but seems to be be doing better. Vital signs with mild tachycardia. Did not require IV Ativan last night. Had cholecystectomy yesterday. Leukocytosis today. Manual differential pending. Did have diarrhea yesterday but no stools today. Fecal WBCs negative. Patient does complain of headache and occasional cough. Transaminitis again noted and monitor. 08/23 Patient seems to be feeling a bit better today. Still quite weak. But more alert. Leukocytosis persistent today. Afebrile. Does not appear toxic does not have any new complaints. No bandemia on yesterday's labs. Creatinine 1.3 today from 1.4 yesterday. Patient severely deconditioned and weak and may need rehab. No diarrhea today. Monitor CBC and if continues to persist consider repeat CT. 08/24 Reports no nausea or vomiting. Reports pain at the site of surgery which is same or slightly improved but not worse. Repeat blood cultures negative. Stool C. difficile and toxin negative. Fecal leukocyte stain also negative. Still has leukocytosis of 15,000 change, hemoglobin 8.7. Serum creatinine 1.3 unchanged from yesterday. LFTs improving 08/25. Patient reports he still has right sided abdominal pain mainly at the surgical site. He is tolerating diet without difficulty. White blood count is 10.3. Hemoglobin is stable at 8.9. Potassium BUN and creatinine are normal. PT reported patient is unstable on his feet however patient has been insisting he would like to go home. Discharge diagnoses *Acute acalculous cholecystitis: s/p lap cholecystectomy (08/21).Improving expectedly postsurgically. Patient continues to do well. He is tolerating diet without difficulty. White blood count is 10.3. Hemoglobin is stable at 8.9. Potassium BUN and creatinine are normal. Patient is clinically stable and will be discharged. *Pyelonephritis(E.coli) b/l: -no obstruction on imaging. Received ceftriaxone and discharged on cefdinir to compled a 10 day course *Ecoli bacteremia: 2/2 above *Sepsis, severe: pct trended down -leucocytosis resolved, afebrile *ROSANNE,suspected ATN(unknown baseline) suspect CKD II: 2/2 above -Cr improved to 1.2 from 2.3 *Met acidosis: resolved *Alcohol withdrawal severe, Delirium Tremens: received Ativan per CIWA protocol. Now resolved. *Atelectasis: resolved *Volume depletion: improved *Anemia: suspect dilutional, monitor *Hyponatremia now resolved *Alcohol use disorder:S/p CIWA, vitamins/mineral. Counselled on alcohol cessation. *Transaminitis/Hyperbilirubinemia: 2/2 above,improving *Tobacco abuse: counselled on cessation *Chronic pain and neuropathy: *Diarrhea since admission: tool C. difficile and toxin negative. Fecal leukocyte stain also negative. Improving on Imodium *Generalized weakness/deconditioning: PT OT. Pt is improving and getting close to baseline and refusing SNF. PHYSICAL EXAM General: awake, No acute Distress Eyes/N/T: EOMI, no scleral icterus, Head/Neck: neck supple, full ROM, CV: RRR, No murmurs, Pulm: Clear b/l, no wheezing/rhonchi/rales, no respiratory distress Abd: soft, RUQ tender, no rebound or rigidity +BS x4 Ext: no clubbing/cyanosis/edema, nontender Neuro: Alert and oriented, no focal deficits Psychiatric: Appropriate mood and affect Skin: warm/dry, normal color Time spent > 50 min Discharge diagnosis: Cholecystitis,Pyelonephritis, bacteremia Time Spent with Patient Time attestation: Total time spent providing and/or coordinating discharge services: Time spent: Greater than 30 minutes EXAM Constitutional Vitals: Temp Pulse Resp BP Pulse Ox O2 Del Method O2 Flow Rate 98.5 F 95 H 18 94/66 100 Room Air 4 08/25/22 12:00 08/25/22 12:00 08/25/22 12:00 08/25/22 12:00 08/25/22 12:00 08/25/22 12:00 08/21/22 10:45 Discharge Data Data Completed and Pending Labs on day of discharge: Labs from last 24 hours 08/25/22 08/25/22 08:03 08:03 WBC 10.3 RBC 2.76 L Hgb 8.9 L Hct 27.8 L MCV 100.7 H MCH 32.2 MCHC 32.0 RDW 14.9 H Plt Count 312 MPV 11.3 Immature Gran % (Auto) 1.7 H Neut % (Auto) 83.4 H Lymph % (Auto) 7.7 L [place] % (Auto) 4.9 Eos % (Auto) 1.8 Baso % (Auto) 0.5 Lymph # (Auto) 0.79 L [place] # (Auto) 0.50 Eos # (Auto) 0.19 Baso # (Auto) 0.05 Immature Gran # 0.17 H Absolute Neutrophils 8.60 H Sodium 139 Potassium 3.9 Chloride 107 Carbon Dioxide 26 Anion Gap 6.0 L BUN 12 Creatinine 1.2 GFR Calculation 72 Glucose 119 H Calcium 8.4 L Total Bilirubin 0.5 AST 26 ALT 29 Alkaline Phosphatase 322 H Total Protein 5.6 L Albumin 2.5 L Globulin 3.1 Albumin/Globulin Ratio 0.8 L Discharge Plan Patient/Caregiver Discharge Instructions Activity: increase activity as tolerated Diet: Regular Diet Instructions: Laparoscopic Cholecystectomy (GEN) Activity Restrictions/Additional Instructions: Follow-up with PCP in 3 to 7 days. Follow-up in the surgery office in 2 weeks for suture removal. Prescriptions: New loperamide 2 mg Capsule 2 mg PO PRN PRN (Reason: Diarrhea) Qty: 16 0RF nicotine [Nicoderm CQ] 21 mg/24 hr Patch 24 Hour 21 mg topical DAILY@1000 Qty: 28 0RF cefdinir 300 mg capsule 300 mg PO BID Qty: 10 0RF multivitamin Tablet 1 tab PO QAM Qty: 30 0RF thiamine HCl (vitamin B1) 100 mg tablet 100 mg PO QDAY Qty: 60 0RF folic acid 1 mg tablet 1 mg PO QDAY Qty: 60 0RF Follow Up Plan Follow up with: Unknown,Unknown [Primary Care Provider] - Patient Disposition: Home, Self-Care Rehab Potential: Fair I certify that the patient requires SNF services: No Overall status at discharge: patient is progressing back to baseline Discharge Orders: Discharge Order (Routine); Ordered 08/25/22 Ordered By: Mateus SANABRIA VTE Deep Vein Thrombosis/Pulmonary Embolism Present on Admission: No
--- NOTE | 2022-09-01 13:58 | Operative Note ---
DATE OF OPERATION: 08/21/2022 PREOPERATIVE DIAGNOSIS: Acute cholecystitis. POSTOPERATIVE DIAGNOSIS: Acute cholecystitis. PROCEDURE: Laparoscopic cholecystectomy. SURGEON: Alia Munoz M.D. FINDINGS: Dilated edematous gallbladder. DESCRIPTION OF PROCEDURE: Under general anesthesia, the patient's abdomen was prepped and draped in a sterile field. Timeout procedure was carried out as per protocol. A supraumbilical midline incision was made. Veress needle was inserted. The abdomen was insufflated with 2 liters of CO2. A 12 mm port was placed. A major dilated, edematous gallbladder was encountered. Under videoscopic guidance, a 12 mm port and two 5 mm ports were placed in the right subcostal region. The gallbladder was too tensely dilated to grasp, so it was decompressed with a Weck needle. The gallbladder was then positioned. Cystic duct was dissected. It was clipped with an Endo TONI stapler. Cystic artery branches were dissected back to the gallbladder. They were clipped with four clips and divided. Gallbladder was from the infrahepatic bed using electrocautery. There was a small amount of bleeding, which appeared to be coming from the bed of the liver. It was cauterized and then two sheets of Surgicel was placed in the depth of the superficial area. CO2 was allowed to escape from the abdomen and the ports were removed. The fascia at the umbilicus was closed with 0 Vicryl. Other skin incisions were closed with duane. Tegaderm dressings were placed. The patient tolerated the procedure well. He was awakened and transferred to the postanesthetic care unit in satisfactory condition. LCS:silva Job ID: [id number] Doc ID: [id number] Alia Munoz M.D.
== END 2022-08-25 16:30 | disposition home or self-care (01) | DRG 854 ==
LOC: ED 08:16 → MEDSUR 14:07 → ICU 08-18 15:40 → MEDSUR 08-23 14:15
PROVIDERS: ADMIT Internal Medicine; ATTEND Internal Medicine